=== PATIENT | female | born 1955 | race Caucasian/White ===

== ENCOUNTER 2019-12-14 08:55 | Outpatient (CLI) | payer MEDICARE, SELFPAY ==
--- NOTE | 2019-12-14 | EST_ITS ---
Patient Info Name: Christelle Flower Age: 64 years : 1955 Gender: Female Ht: 65 in Wt: 150 lbs BSA: 1.78 m2 HR: 62 bpm BP: 130 / 84 mmHg Exam Date: 12/14/2019 9:48 AM Exam Location: [facility] Pulmonary Patient Status: Outpatient Admit Date: 12/14/2019 Staff Ordering Physician: TemoDipak MD Injection Molding Supervisor: CHAVA Attending Provider: Temo, Dipak PETTIT Exercise Technologist: Claudia Molina RDCS Exercise Physician: Kwame Fairchild DO Exam Type: CA stress echo Study Info Indications R07.9 - Chest pain, unspecified Treadmill exercise stress echocardiogram is performed. Summary 1. 1. Negative Lam exercise stress test for ischemic ST changes by ECG criteria. 2. 2. Good functional capacity, achieving 7 METs of workload. 3. 3. Appropriate HR response to exercise. 4. 4. Appropriate HR recovery at 1 minute post exercise. 5. 5. Negative stress echocardiogram for ischemia by wall motion analysis. 6. 6. Patient informed of the above results. Stress Echo Findings Left Ventricle Appropriate increase in LV endocardial thickening with systole. Appropriate augmentation of contractility with systole. No wall motion abnormality. Left Ventricle Normal LV systolic function, no wall motion abnormality. Protocol: Lam Stress ECG Details Stage: REST Duration (min): 4 min : 6 sec Speed (mph): 0.0 Grade (%): 0 HR (bpm): 63 SBP (mmHg): 130 DBP (mmHg): 84 METS: --- Stage: REST Duration (min): 11 min : 6 sec Speed (mph): 0.0 Grade (%): 0 HR (bpm): 65 SBP (mmHg): 130 DBP (mmHg): 84 METS: --- Stage: STAGE 1 Duration (min): 1 min : 0 sec Speed (mph): 1.7 Grade (%): 10 HR (bpm): 93 SBP (mmHg): 130 DBP (mmHg): 84 METS: --- Stage: STAGE 1 Duration (min): 2 min : 0 sec Speed (mph): 1.7 Grade (%): 10 HR (bpm): 106 SBP (mmHg): 130 DBP (mmHg): 84 METS: --- Stage: STAGE 1 Duration (min): 3 min : 0 sec Speed (mph): 1.7 Grade (%): 10 HR (bpm): 115 SBP (mmHg): 164 DBP (mmHg): 76 METS: --- Stage: STAGE 2 Duration (min): 1 min : 0 sec Speed (mph): 2.5 Grade (%): 12 HR (bpm): 127 SBP (mmHg): 164 DBP (mmHg): 76 METS: --- Stage: STAGE 2 Duration (min): 2 min : 0 sec Speed (mph): 2.5 Grade (%): 12 HR (bpm): 132 SBP (mmHg): 166 DBP (mmHg): 79 METS: --- Stage: STAGE 2 Duration (min): 3 min : 0 sec Speed (mph): 2.5 Grade (%): 12 HR (bpm): 134 SBP (mmHg): 166 DBP (mmHg): 79 METS: --- Stage: STAGE 3 Duration (min): 0 min : 1 sec Speed (mph): 0.0 Grade (%): 0 HR (bpm): 134 SBP (mmHg): 166 DBP (mmHg): 79 METS: --- Stage: RECOVERY Duration (min): 0 min : 58 sec Speed (mph): 0.0 Grade (%): 0 HR (bpm): 102 SBP (mmHg): 181 DBP (mmHg): 53 METS: --- Stage: RECOVERY Duration (min): 1 min : 58 sec Speed (mph): 0.0 Grade (%): 0 HR (bpm
== END 2019-12-14 08:56 | disposition home or self-care (01) ==
PROVIDERS: PCP Internal Medicine; Visit Provider Internal Medicine
DX: R07.9 Chest pain, unspecified (principal)
CPT/HCPCS: 93351

== ENCOUNTER 2021-02-20 06:54 | Observation (INO) | payer MEDICARE, SELFPAY ==
[2021-02-20] VITALS (14 sets, daily range): BP systolic 103–138; BP diastolic 50–81; PULSE 44–83; RESP 8–18; TEMP 36–36.7; O2SAT 93–99; BMI 24.9
--- NOTE | ~2021-02-20 | CT_ITS ---
EXAMINATION: CT brain wo con DATE: 02/20/2021 11:19 INDICATION: Vertigo. Nausea. TECHNIQUE: Computed tomography (CT) of the head was performed without intravenous contrast. Sagittal and coronal reconstructions were performed. The mA was adjusted according to patient size. Iterative reconstruction technique was employed. The dose-length product was 605.33 mGy-cm. COMPARISON: None FINDINGS: No acute intracranial hemorrhage, acute infarction or abnormal extra axial fluid collection. There is mild scattered white matter hypoattenuation consistent with chronic small vessel ischemic disease. V entricles are normal and symmetric. No mass/mass effect. The orbits, paranasal sinuses and mastoid ai r cells are normal. IMPRESSION: 1. Mild scattered white matter hypoattenuation consistent with chronic small vessel ischemic disease. No acute intracranial process. Reviewed, dictated and finalized at location A. IMPRESSION: 1. Mild scattered white matter hypoattenuation consistent with chronic small ve ssel ischemic disease. No acute intracranial process.
--- NOTE | ~2021-02-20 | US_ITS ---
EXAMINATION: US carotid duplex BI DATE: 02/21/2021 08:39 INDICATION: Dizziness. TECHNIQUE: Grayscale, color Doppler, and pulsed Doppler images of the cervical carotid arteries were obtained. The degree of vessel stenosis is placed in one of the following categories: normal, <50%, 5 0-69%, >=70% but less than near-occlusion, near-occlusion, or total occlusion. Note that percent sten osis relative to normal distal artery lumen diameter is indirectly measured from velocity measurement s as described by Bg, et al. Radiology 2003; 229:340-346. COMPARISON: None. FINDINGS: RIGHT: The right common carotid artery (CCA) peak systolic velocity (PSV) is 79 cm/s. The right internal car otid artery (ICA) PSV is 69 cm/s. The right ICA end-diastolic velocity (EDV) is 24 cm/s. The right IC A/CCA PSV ratio is 0.9. Grayscale and color Doppler images yield an estimate of <50% diameter reducti on from plaque in the ICA. There is antegrade flow in the right vertebral artery. LEFT: The left CCA PSV is 107 cm/s. The left ICA PSV is 69 cm/s. The left ICA EDV is 26 cm/s. The left ICA/ CCA PSV ratio is 0.6. Grayscale and color Doppler images yield an estimate of <50% diameter reduction from plaque in the ICA. There is antegrade flow in the left vertebral artery. IMPRESSION: 1. <50% stenosis in the right internal carotid artery. 2. <50% stenosis in the left internal carotid artery. Reviewed, dictated and finalized at location A.
--- NOTE | 2021-02-20 07:05 | ED.DIZZY ---
HPI - Dizziness General Chief Complaint: Dizziness Stated Complaint: Dizzy, Nausea & Diarrhea Time Seen by Provider: 02/20/21 07:05 History of Present Illness HPI Narrative: 65 yo female w/ h/o htn, essential tremor, irregular heart beat presents to the ED for dizziness. She has had dizziness described as vertigo since this morning. It is worse with head movement and eye opening. Not improved by recumbent position. Associated with nausea. No ear pain or changes in hearing. Chronic tinnitus. No CP, SOB. Additionally complaining of diarrhea since this morning. Watery. No dark or bloody stools. No abdominal pain. No dysuria, hematuria. She was recently told that she has an irregular heart beat and currently has traffic monitor specialist placed. She received second Mederna vaccination at the end of December. Related Data Home Medications Medication Instructions Recorded Confirmed amlodipine 5 mg PO DAILY 02/20/21 atorvastatin 40 mg PO DAILY 02/20/21 calcium-vitamin D3 02/20/21 estradiol 1 mg PO DAILY 02/20/21 avvahuptephr-wmh-esjb-FA-vit K tablet PO 02/20/21 [Adults Multivitamin] omeprazole 20 mg PO DAILY 02/20/21 propranolol 20 mg PO Q12H 02/20/21 zolpidem 02/20/21 Allergies Allergy/AdvReac Type Severity Reaction Status Date / Time simvastatin AdvReac Itching Verified 02/20/21 07:35 Review of Systems Review of Systems: All systems reviewed & are unremarkable except as noted in HPI and below Constitutional: Constitutional: Denies chills, Denies fever(s) and Denies weakness Eyes: Eyes: Reports no additional eye complaints ENT: Reports as per HPI Cardiovascular: Cardiovascular: Denies chest pain Respiratory: Respiratory: Denies dyspnea Gastrointestinal: Gastrointestinal: Denies abdominal pain, Reports diarrhea, Reports nausea and Denies vomiting Genitourinary: Genitourinary: Denies hematuria and Denies dysuria Musculoskeletal: Musculoskeletal: Denies back pain Neurologic: Reports as per HPI, Denies confusion, Denies headache(s) and Denies weakness [facility] Past Medical History Medical History (Updated 02/20/21 @ 12:48 by Bg Stevens MD) Essential tremor HTN (hypertension) Family History Family History (Updated 05/28/16 @ 23:19 by DOCTOR UNKNOWN) Father Family history of alcoholism Family history of chronic obstructive pulmonary disease Family history of heart disease in male family member before age 55 Sibling Family history of malignant neoplasm of breast in first degree relative Family history of lung disease Mother Family history of congestive heart failure Family history of heart disease in male family member before age 55 Other Family history of malignant neoplasm Hypertension Social History Social History Smoking status: Never smoker Alcohol intake: current Gender identity (if verbalized by the patient): Female Exam Const: General: no acute distress and alert Orientation/consciousness: patient oriented x3 HENMT: Head: normal to inspection Ears: Abnormal EAC present cerumen impaction bilateral Mouth: Yes moist mucous membranes Eyes: Conjunctivae: conjunctivae normal Pupils: Equal, round and reactive pupils present Resp: Effort & Inspection: normal respiratory effort Auscultation: clear to auscultation bilaterally Cardio: Rate: regular rate and bradycardic GI: Inspection: non-distended GI Palp: Yes Soft to palpation and No Tenderness to palpation present (GI) Skin: General skin exam: normal color Neuro: General: patient oriented x3, moves all extremities, no meningeal signs and CN's II-XI intact bilaterally Cranial nerves: Yes Nystagmus present horizontal Speech: normal speech Extrem: General: normal to inspection and no edema Course Vital Signs Vital signs: Vital Signs Temperature 36.4 C 02/20/21 07:01 Pulse Rate 44 L 02/20/21 07:01 Respiratory Rate 12 02/20/21 07:01 Blood Pressure 115/76 02/20/21 07:01 Pulse Oximetry 96
--- NOTE | 2021-02-20 07:20 | ECG_ITS ---
Measurements Intervals [place] Rate: 52 P: 85 NV: 193 QRS: 207 QRSD: 97 T: 192 QT: 455 QTc: 426 Interpretive Statements SINUS BRADYCARDIA LIMB LEAD REVERSAL DELAYED PRECORDIAL R/S TRANSITION BORDERLINE T WAVE ABNORMALITY- ANTEROLAT/INF LEADS BASELINE ARTIFACT- I, II, III, AVR, AVL, AVF BORDERLINE ECG Electronically Signed On 02-20-2021 9:08:28 CDT by Kwame Fairchild D.O.
[2021-02-20] MEDS: SODIUM CHLORIDE 0.9% IV 1,000 ML 999 ML IV CONT (07:44)
[2021-02-20] MEDS: ONDANSETRON INJ 4 MG/2 ML VIAL IV PUSH (07:44)
[2021-02-20] MEDS: diazePAM INJ (*CRX) 10 MG/2 ML SYRINGE 2.5 MG IV PUSH (07:45)
[2021-02-20 07:46] LABS: Basophils Percent Auto 0.6 % (0.2-1.2); Eosinophils Absolute Auto 0.2 K/mm3 (0-0.3); Eosinophils Percent Auto 2.8 % (0-4.4); Hematocrit 39.7 % (37.0-47.0); Hemoglobin 13.3 g/dL (12.0-15.0); Immature Granulocyte Absolute 0.01 K/mm3 (0.00-0.031); Immature Granulocyte Percent A 0.1 % (0-0.5); Lymphocytes Absolute Auto 1.09 K/mm3 (0.9-3.2); Lymphocytes Percent Auto 15.1 % (18.3-44.2); Mean Corpuscular HGB Conc 33.5 g/dl (32-36); Mean Corpuscular Hemoglobin 31.2 pg (26-34); Mean Corpuscular Volume 93.2 fl (80-100); Mean Platelet Volume 10.4 fl (7.4-10.4); Monocytes Absolute Auto 0.5 K/mm3 (0.1-0.6); Monocytes Percent Auto 6.9 % (2.6-8.5); Neutrophils Absolute Auto 5.4 K/mm3 (1.3-6.7); Neutrophils Percent Auto 74.5 % (45.5-73.1); Platelet Count Result 197 k/mm3 (150-375); Red Blood Count 4.26 M/mm3 (4.2-5.4); Red Cell Distribution Width 12.4 % (11.5-14.5); White Blood Count 7.2 K/mm3 (4.5-10.0)
[2021-02-20 07:57] LABS: Alanine Aminotransferase 21 U/L (4-35); Albumin Level 4.2 g/dL (3.5-5.1); Alkaline Phosphatase 63 U/L (38-126); Anion Gap 6 mmol/L (8-16); Aspartate Amino Transferase 30 U/L (14-36); Bilirubin,Total 0.3 mg/dL (0.2-1.3); Blood Urea Nitrogen 13 mg/dL (7-17); Calcium 8.8 mg/dL (8.4-10.2); Carbon Dioxide 26 mmol/L (22-30); Chloride 108 mmol/L (98-107); Estimated CRCL calculation 70 ml/min; Estimated Glomerular Filt Rate > 60; Glucose 136 mg/dL (65-105); INR 0.9; Magnesium 1.9 mg/dL (1.6-2.3); Partial Thromboplastin Time 22.1 SECONDS (22.3-36.8); Potassium 3.6 mmol/L (3.4-5.0); Prothrombin Time 12.3 Seconds (11.1-14.7); Sodium 140 mmol/L (137-145)
[2021-02-20 08:11] LABS: Troponin I < 0.012 ng/mL (0.000-0.034)
[2021-02-20] MEDS: MECLIZINE HCL 25 MG TABLET PO ×2 (10:07→17:34)
[2021-02-20] MEDS: diazePAM INJ (*CRX) 10 MG/2 ML SYRINGE 5 MG IV PUSH (11:25)
--- NOTE | 2021-02-20 13:44 | ADMGEN ---
This patient, Christelle Flower, was admitted to Medical Room 252-01. Patient/family oriented to hospital policies and general routines including ID bracelet, bed and alarms, visiting hours, pain management, procedures, bathroom and other care routines, personal items, smoking policy, room service/diet, and visiting hours. Information on how to activate the Rapid Response Team has been discussed. Patient/Family are encouraged to report perceived risks to care and to ask questions if they do not understand what they are told or what they should do.
[2021-02-20] MEDS: LACTATED RINGERS 1,000 ML 100 ML IV CONT (13:57)
--- NOTE | 2021-02-20 16:45 | PM.IMHP ---
H&P: HPI History of Present Illness Date/Time: 02/20/21 16:45 65 yo female w/ h/o htn, essential tremor, irregular heart beat presents to the ED for dizziness. It started when she woke up this am. she reports feeling of room spinning around with this. worsens wiht head movement and eye opening. and also sitting up. it was not able to check orthostatic in the ed. reiecved some fluid. no ear ache, ear pain ,no tinnitus. she had clogged ears in the apst. she also rpeorts she had an episode of watery diarrhea this am. she denies any abdomnal pain. she is also peeing too much. no fever, chills. sob, chest pain. She was recently told that she has an irregular heart beat and currently has trackmobile operator placed. She received second Mederna vaccination at the end of December. Chief Complaint: dizziness Review of Systems Review of Systems: Narrative: - CONSTITUTIONAL: Denies weight loss, fever and chills. - HEENT: Denies changes in vision and hearing - RESPIRATORY: Denies SOB and cough. - CV: Denies palpitations and CP. - GI: Denies abdominal pain, nausea, vomiting and reprots diarrhea. - : Denies dysuria and reprots urinary frequency. - MSK: Denies myalgia and joint pain. - SKIN: Denies rash and pruritus. - NEUROLOGICAL: Denies headache and syncope. - PSYCHIATRIC: Denies recent changes in mood. Denies anxiety and depression. All systems reviewed & are unremarkable except as noted in HPI and below Constitutional: Constitutional: Reports fatigue and Reports weakness Neurologic: Reports weakness Endocrine: Endocrine: Reports fatigue [facility] Past Medical History Medical History (Updated 02/20/21 @ 17:04 by Real Christiansen MD) Essential tremor HTN (hypertension) Family History Family History Father Family history of alcoholism Family history of chronic obstructive pulmonary disease Family history of heart disease in male family member before age 55 Sibling Family history of malignant neoplasm of breast in first degree relative Family history of lung disease Mother Family history of congestive heart failure Family history of heart disease in male family member before age 55 Other Family history of malignant neoplasm Hypertension Social History Social History Smoking status: Never smoker Alcohol intake: current Drinks per week: 2 Substance use: never Substance use type: does not use Gender identity (if verbalized by the patient): Female Spiritual care concerns: No Meds Home Medications and Allergies Home Medications Medication Instructions Recorded Confirmed Type amlodipine 5 mg PO DAILY 02/20/21 02/20/21 History atorvastatin 40 mg PO DAILY 02/20/21 02/20/21 History calcium carbonate-vitamin D2 1 tablet PO BID 02/20/21 02/20/21 History [Calcium + Vitamin D] ergocalciferol (vitamin D2) 1,250 mcg PO WEEKLY 02/20/21 02/20/21 History estradiol 1 mg PO DAILY 02/20/21 02/20/21 History efzsgzxqmhdj-qvn-hhyw-FA-vit K tablet PO 02/20/21 History [Adults Multivitamin] omeprazole 20 mg PO DAILY 02/20/21 02/20/21 History propranolol 40 mg PO HS 02/20/21 02/20/21 History zolpidem 10 mg PO HS 02/20/21 02/20/21 History zonisamide 50 mg PO HS 02/20/21 02/20/21 History Allergies Allergy/AdvReac Type Severity Reaction Status Date / Time simvastatin AdvReac Itching Verified 02/20/21 13:48 Vital Signs Vital Signs - 24 hr 02/20/21 07:01 02/20/21 07:14 02/20/21 07:24 Temperature 97.6 F 97.6 F Pulse Rate 44 L 50 L Respiratory Rate 12 14 Blood Pressure 115/76 121/62 Pulse Oximetry 96 94 02/20/21 07:40 02/20/21 07:41 02/20/21 08:49 Temperature Pulse Rate 55 L 64 64 Respiratory Rate 14 Blood Pressure 134/61 134/81 117/64 Pulse Oximetry 97 02/20/21 10:29 02/20/21 11:26 02/20/21 12:38 Temperature Pulse Rate 55 L 54 L 63 Respiratory Rate 18 8 L 18 Blood Pressure 138/78 124/63 103/70 Pulse Oxime
[2021-02-20] MEDS: PROPRANOLOL HCL 20 MG TABLET 40 MG PO (20:34)
[2021-02-20] MEDS: ZONISAMIDE 25 MG CAPSULE 50 MG PO (20:34)
[2021-02-20] MEDS: ZOLPIDEM TARTRATE (*CRX) 5 MG TABLET 10 MG PO (20:35)
[2021-02-21] VITALS (11 sets, daily range): BP systolic 107–119; BP diastolic 58–72; PULSE 57–72; RESP 16; TEMP 36.3–37.2; O2SAT 95–97
--- NOTE | 2021-02-21 | ECHO_ITS ---
Patient Info Name: Christelle Flower Age: 65 years : 1955 Gender: Female Ht: 65 in Wt: 149 lbs BSA: 1.77 m2 HR: 60 bpm BP: 113 / 62 mmHg Heart Rhythm: Sinus Rhythm Technical Quality: Good Exam Date: 02/21/2021 7:32 AM Exam Location: [facility] Pul[facility] Patient Status: Inpatient Admit Date: 02/20/2021 Staff Ordering Physician: Real Christiansen MD Oracle Adf Developer: Christina Chowdary RDCS Attending Provider: Real Christiansen MD Exam Type: CA echo doppler color flow Study Info Indications R42 - Dizziness and giddiness Complete two-dimensional, color flow and Doppler transthoracic echocardiogram is performed. Strain analysis performed. Summary 1. Complete two-dimensional, color flow and Doppler transthoracic echocardiogram is performed. 2. Strain analysis performed. 3. Left ventricular chamber dimension is normal. 4. Left ventricular systolic function is hyperdynamic, estimated at >70%. 5. There is mildly increased left ventricular wall thickness. 6. Left ventricular septal wall motion is normal. 7. The left ventricular diastolic function is indeterminate. 8. Global longitudinal strain is normal at -22 %. 9. Left atrial chamber dimension is mildly enlarged. 10. There is mild mitral valve regurgitation. 11. There is mild tricuspid valve regurgitation. Left Ventricle Left ventricular chamber dimension is normal. Left ventricular systolic function is hyperdynamic, estimated at >70%. There is mildly increased left ventricular wall thickness. Left ventricular septal wall motion is normal. The left ventricular diastolic function is indeterminate. Global longitudinal strain is normal at -22 %. Right Ventricle Right ventricular chamber dimension is normal. Right ventricular systolic function is normal. Left Atria Left atrial chamber dimension is mildly enlarged. Right Atria Right atrial chamber dimension is normal. Atrial Septum Intact interatrial septum visualized by color flow imaging. Aortic Valve The aortic valve is trileaflet. There is no aortic valve sclerosis. There is no aortic valve stenosis. There is trace aortic valve regurgitation. Pulmonic Valve The pulmonic valve is normal. There is no pulmonic valve stenosis. There is trace pulmonic regurgitation. Mitral Valve The mitral valve has normal leaflets. There is no mitral valve stenosis. There is mild mitral valve regurgitation. Tricuspid Valve The tricuspid valve leaflets are normal. There is no significant tricuspid valve stenosis. There is mild tricuspid valve regurgitation. No pulmonary hypertension, estimated pulmonary arterial systolic pressure is 33 mmHg. Pericardium/Pleural The pericardium appears normal. There is trivial pericardial effusion. Inferior Vena Cava Normal inferior vena cava with >50% collapse upon inspiration consistent with normal right atrial pressure, 10 mmHg. Aorta The aortic root size at the sinus of Valsalva is normal. The prox ascending aorta size is normal. Left Ventricular Outflow Tract Name Value Normal LVOT 2D LVOT Diameter 2.0 cm LVOT Doppler LVOT Peak Gr
[2021-02-21] MEDS: LACTATED RINGERS 1,000 ML 100 ML IV CONT (00:07)
[2021-02-21] MEDS: MECLIZINE HCL 25 MG TABLET PO ×4 (00:08→17:18)
[2021-02-21] MEDS: ACETAMINOPHEN 325 MG TABLET 650 MG PO ×2 (05:54→13:59)
[2021-02-21] MEDS: ATORVASTATIN 40 MG TABLET PO (09:15)
[2021-02-21] MEDS: PANTOPRAZOLE 40 MG TABLET PO (09:15)
[2021-02-21] MEDS: estradioL 1 MG TABLET PO (09:15)
[2021-02-21] MEDS: MULTIVITAMINS /C LUTEIN (CENTRUM SILVER) TABLET *BKC 1 TAB PO (09:15)
--- NOTE | 2021-02-21 13:29 | PM.IMPN ---
Progress Note: A&P Assessment and Plan (1) Vertigo: Code(s): R42 - Dizziness and giddiness Status: Acute (2) Hyperlipidemia: Code(s): E78.5 - Hyperlipidemia, unspecified Status: Acute (3) GERD (gastroesophageal reflux disease): Code(s): K21.9 - Gastro-esophageal reflux disease without esophagitis Status: Acute (4) Insomnia: Code(s): G47.00 - Insomnia, unspecified Status: Acute (5) Irregular heart beat: Code(s): I49.9 - Cardiac arrhythmia, unspecified Status: Acute Additional Plan # Acute vertigo: likely BPPV vs labrynthitis. conservative managmeent. Compazine. received valium which helped in the ED. scheduled meclizine scheduled. OT to perform Joy maneuvre did not happen. symptoms better today. will stop her ivf. complete orthostatic could nto be checked but sitting up with no drop in blood pressure. carotid us negative bilaterlay. ECHO is okay as well. # Diarrhea: watch for further occurence. likely viral. this has resolved now. # hx of irregular heart beat: will get ECHO. she is on event monitor. results could not be obtained today as ofice is already closed. will monitor in telemetry here. on inderal which will be continued. # HTN: adriano emedications and stable. contieu inderal # Hyperlpidemia: atorvastatin # DVT proph: SCDs # full code # Disposition: Fluid off. plan dc in am. Subjective Date/time seen: 02/21/21 13:29 feels a lot better today, she is very minimally dizzy today, she worked with OT this am. she is eating and drinking well. no nausea today. no fever, chills. Review of Systems Review of Systems: Narrative: - CONSTITUTIONAL: Denies weight loss, fever and chills. - HEENT: Denies changes in vision and hearing - RESPIRATORY: Denies SOB and cough. - CV: Denies palpitations and CP. - GI: Denies abdominal pain, nausea, vomiting and diarrhea. - : Denies dysuria and urinary frequency. - MSK: Denies myalgia and joint pain. - SKIN: Denies rash and pruritus. - NEUROLOGICAL: Denies headache and syncope. - PSYCHIATRIC: Denies recent changes in mood. Denies anxiety and depression. All systems reviewed & are unremarkable except as noted in HPI and below Constitutional: Constitutional: Reports fatigue and Reports weakness Neurologic: Reports weakness Endocrine: Endocrine: Reports fatigue Exam Narrative: Exam Narrative: GENERAL: The patient is well developed, in no acute distress HEENT: Nonicteric sclerae, PERRLA, EOMI. Oropharynx clear. Moist mucous membranes. Conjunctivae appear well perfused. no nystagmus noted. neck movements will exacerbate her vertigo CHEST: Chest wall is nontender. HEART: Regular rate and rhythm without murmur, rubs, or gallops LUNGS: Clear to auscultation bilaterally. no respiratory distress ABDOMEN: Soft, positive bowel sounds, non-tender, no organomegaly. SKIN: No rash, no excessive bruising, petechiae, or purpura. NEUROLOGIC: Cranial nerves II-XII intact, alert and oriented x 3, no gross motor deficits EXTREMITIES: no edema, cyanosis or clubbing Objective Data Vital Signs Vital Signs: Vital Signs - 24 hr 02/20/21 13:40 02/20/21 16:00 02/20/21 20:00 Temperature 96.8 F L Pulse Rate 60 63 83 Respiratory Rate 16 16 Blood Pressure 116/50 L Pulse Oximetry 99 97 02/20/21 20:34 02/20/21 21:25 02/21/21 00:00 Temperature 98.0 F Pulse Rate 80 83 72 Respiratory Rate 16 Blood Pressure 111/56 L Pulse Oximetry 97 02/21/21 04:00 02/21/21 06:00 02/21/21 08:13 Temperature 97.9 F Pulse Rate 66 65 Respiratory Rate 16 Blood Pressure 113/62 Pulse Oximetry 97 97 02/21/21 09:11 02/21/21 12:00 Temperature Pulse Rate 63 57 L Respiratory Rate Blood Pressure Pulse Oximetry Intake/Output Intake/Output: Intake & Output 02/18/21 02/19/21 02/20/21 02/21/21 23:59 23:59 23:59 23:59 Intake Total 1999 1850 Output Total 200 850 Balance 1800 1000 Meds/Results Me
[2021-02-21] MEDS: ZONISAMIDE 25 MG CAPSULE 50 MG PO (20:27)
[2021-02-21] MEDS: PROPRANOLOL HCL 20 MG TABLET 40 MG PO (20:27)
[2021-02-21] MEDS: KETOROLAC 15 MG/ML VIAL (*BKC) IV PUSH (20:28)
[2021-02-21] MEDS: ZOLPIDEM TARTRATE (*CRX) 5 MG TABLET 10 MG PO (22:05)
[2021-02-22] VITALS: PULSE 58
[2021-02-22] MEDS: MECLIZINE HCL 25 MG TABLET PO ×2 (00:20→06:09)
[2021-02-22 04:00] VITALS: PULSE 59
[2021-02-22 06:00] VITALS: BP 119/70; PULSE 56; RESP 18; TEMP 36.4; O2SAT 96
[2021-02-22 08:00] VITALS: PULSE 63
[2021-02-22] MEDS: MULTIVITAMINS /C LUTEIN (CENTRUM SILVER) TABLET *BKC 1 TAB PO (08:37)
[2021-02-22] MEDS: PANTOPRAZOLE 40 MG TABLET PO (08:37)
[2021-02-22] MEDS: ATORVASTATIN 40 MG TABLET PO (08:37)
[2021-02-22] MEDS: estradioL 1 MG TABLET PO (08:37)
[2021-02-22] MEDS: KETOROLAC 15 MG/ML VIAL (*BKC) IV PUSH (09:49)
--- NOTE | 2021-02-22 10:26 | PM.DS ---
DS: Admitting Diagnosis Admitting Diagnosis Admitting Diagnosis: acute vertigo DS: Discharge Diagnosis Discharge Diagnosis (1) Irregular heart beat: Code(s): I49.9 - Cardiac arrhythmia, unspecified Status: Acute (2) Insomnia: Code(s): G47.00 - Insomnia, unspecified Status: Acute (3) GERD (gastroesophageal reflux disease): Code(s): K21.9 - Gastro-esophageal reflux disease without esophagitis Status: Acute (4) Hyperlipidemia: Code(s): E78.5 - Hyperlipidemia, unspecified Status: Acute (5) Vertigo: Code(s): R42 - Dizziness and giddiness Status: Acute DS: Summary Hospital Course Hospital Course: # Acute vertigo: likely BPPV vs labrynthitis. conservative managmeent. Compazine which she did not received.. received valium which helped in the ED. scheduled meclizine scheduled. OT to perform Joy maneuvre did not happen. symptoms improved with conservative treatment. will refer to outpatient vestibular therapy for continued treatment. stopped her ivf. complete orthostatic could nto be checked but sitting up with no drop in blood pressure. carotid us negative bilaterlay. ECHO is okay as well. bp was low normal and held amlodipine. will keep this on hold at [facility]. fu with PCP for bp check if need to be restrarted. # Diarrhea: watch for further occurence. likely viral. this has resolved now. # hx of irregular heart beat: will get ECHO. she is on event monitor. results could not be obtained today as ofice is already closed. will monitor in telemetry here. on inderal which will be continued. event monitor report reviewed, sinus arrhthymia with occasional sinus pause present. no afib or aflutter or any other arrythmia noted. no event during the start of the episode of vertigo. she is planned for follow up with cardiology as op basis which i have suggested her to keep. # HTN: adriano emedications and stable. contieu inderal # Hyperlpidemia: atorvastatin # DVT proph: SCDs # full code # Disposition: home self care with outpatient vestibular therapy. Status at Discharge Functional status at discharge: independent ambulation Overall status at discharge: patient is progressing back to baseline Time Spent with Patient Time attestation: Total time spent providing and/or coordinating discharge services:35 mins Exam Narrative: Exam Narrative: GENERAL: The patient is well developed, in no acute distress HEENT: Nonicteric sclerae, PERRLA, EOMI. Oropharynx clear. Moist mucous membranes. Conjunctivae appear well perfused. no nystagmus noted. neck movements will exacerbate her vertigo CHEST: Chest wall is nontender. HEART: Regular rate and rhythm without murmur, rubs, or gallops LUNGS: Clear to auscultation bilaterally. no respiratory distress ABDOMEN: Soft, positive bowel sounds, non-tender, no organomegaly. SKIN: No rash, no excessive bruising, petechiae, or purpura. NEUROLOGIC: Cranial nerves II-XII intact, alert and oriented x 3, no gross motor deficits EXTREMITIES: no edema, cyanosis or clubbing Discharge Plan Discharge Attending physician on discharge: Real Christiansen Discharging Clinician: Real Christiansen Anticipated Discharge Date/Time: 02/22/21 10:21 Patient Disposition: Home, Self-Care Activity: as tolerated Diet: as tolerated and heart healthy Discharge Instructions: Follow up with PCP in 1 week for blood pressure check. FOllow up with your wire charger as scheduled. Patient Instructions: Antibiotic Form Stand Alone Forms: General Discharge Information Follow-up/Referrals: Temo,MD Dipak [Primary Care Provider] - 1 Week Discharge Medications: New meclizine 25 mg Tablet 25 mg PO Q6HR PRN (Reason: Vertigo) Qty: 30 RF: 0 Continued omeprazole 20 mg Capsule,Delayed Release(Dr/Ec) 20 mg PO DAILY RF: 0 propranolol 20 mg Tablet 40 mg PO HS RF: 0 atorvastatin 40 mg Tablet 40 mg PO DAILY RF: 0 estradiol 1 mg Tablet
== END 2021-02-22 11:48 | disposition home or self-care (01) ==
LOC: ANHED 08:25 → ANH2MED 12:16
PROVIDERS: Admitting Provider Internal Medicine; Emergency Provider Emergency Medicine; PCP Internal Medicine; Visit Provider Internal Medicine
DX: I49.9 Cardiac arrhythmia, unspecified (principal); R42 Dizziness and giddiness; E78.5 Hyperlipidemia, unspecified; G47.00 Insomnia, unspecified; I10 Essential (primary) hypertension; K21.9 Gastro-esophageal reflux disease without esophagitis
CPT/HCPCS: 36415; 70450; 80053; 83735; 84484; 85025; 85610; 85730; 93005; 93306; 93880; 96361; 96374; 96375; 96376; 97165; 99285; A9270; G0378; J1885; J2405; J3360; J7030; J7120

== ENCOUNTER 2021-03-18 07:46 | Outpatient (CLI) | payer MEDICARE, SELFPAY | END 2021-03-18 07:47 | disposition home or self-care (01) | LOC: ANHAUDIO 07:47 | PROVIDERS: PCP Internal Medicine; Visit Provider Nurse Practitioner Family | DX: H90.42 Sensorineural hearing loss, unilateral, left ear, with unrestricted hearing on the contralateral side (principal) | CPT/HCPCS: 92537; 92540; 92546; 92557; 92567 ==

== ENCOUNTER 2021-05-15 10:15 | Outpatient (RCR) | payer MEDICARE, SELFPAY ==
--- NOTE | 2021-04-24 17:12 | PTOPEVAL ---
PHYSICAL THERAPY EVALUATION Thank you for referring Christelle Flower to [facility] [place] Christelle was evaluated for the dx of dizziness/vertigo. The patient is scheduled to be seen for therapy? 2 x/week for 4 weeks. Please review, sign, date and return this plan of care NOHEMI. I agree with and certify that the following plan of care is medically necessary. Referring Physician Date Referring Provider: Kel Canas LEATHER BELT SHAPER *PT Outpatient Evaluation Start: 04/24/21 10:39 Freq: Status: Active Protocol: Document 04/24/21 10:39 [facility] (Rec: 04/24/21 11:40 [facility] [id number]) Therapy Assessment Status Assessment Status Assessment Status Evaluation Evaluation Information Problem Diagnosis vertigo Onset 01/2019 Additional Evaluation Detail The first time, the patient had a sudden bout of dizziness with nausea/vomitting. The patient was in bed 4 days due to severity of dizziness. Patient felt a little off balance after recovering. This January this year, the patient had another bout of severe dizziness and received a hearing test, ENG and vestibular. Patient also saw ENT with MRI done- test was negative. The patient is no longer dizzy and no longer requires meds to prevent symptoms. Pain Assessment Timing of Pain Assessment Timing of Pain Assessment Assessment Self Report Self Report Pain Level 0 Pain Score Pain Score 0: Self Report Upper Extremity Range of Motion General Upper Extremity Range of Motion Reason Not Measured WFL/Left,WFL/Right Lower Extremity Range of Motion General Lower Extremity Range of Motion Reason Not Measured WFL/Left,WFL/Right Lower Extremity Muscle Strength Testing General Lower Extremity Strength Reason Not Measured WFL/Left,WFL/Right Upper Extremity Muscle Strength Testing General Upper Extremity Strength Reason Not Measured WFL/Left,WFL/Right Balance Assessment GARCIAS Balance Evaluation Total Score (/56 48 points) Comments single leg stance on left is less than 3 seconds, on the right is 10 seconds with 1 touch to correct. Functional Gait Assessment Requirements: A Marked 6 m (20 ft) Walkway That is Marked With a 30.48 cm (12 in) Width. Grading: Amandeep the Highest Category That Applies Gait Level Surface
--- NOTE | 2021-05-08 11:47 | PCPTNOTE ---
Patient did not show up for scheduled appointment this date. Called patient, left message including next scheduled appt date/time.
--- NOTE | 2021-05-22 07:54 | PCPTNOTE ---
Patient called & cancelled scheduled appointment this date due to pulling a muscle in her thigh. Cancelled all remaining appts and states she will call to reschedule later.
--- NOTE | 2021-06-17 11:51 | PCPTNOTE ---
PHYSICAL THERAPY DISCHARGE Attending Provider: Kel Canas NP Patient:Christelle Flower Date of :1955 Patient has not returned for any further treatments since 05/15/2021, therefore she will be discharged at this time. Patient?s initial visit was on 04/24/2021 10:30 and she had a total of 5 visits. The goals have been partially met. Thank you for referring this patient to [facility]. Please review, sign, date and return this discharge summary NOHEMI. I have been updated about the patient's current status and I agree with discharge from the above service at this time. Referring Physician Date
== END 2021-06-18 16:41 | disposition home or self-care (01) ==
LOC: ANHPT 10:15
PROVIDERS: PCP Internal Medicine
DX: R42 Dizziness and giddiness (principal)
CPT/HCPCS: 97110; 97116; 97162

== ENCOUNTER 2022-09-10 13:31 | Outpatient (CLI) | payer MEDICARE, SELFPAY ==
[2022-09-10 14:48] LABS: Influenza A QL RT-PCR Negative (Negative); Influenza B QL RT-PCR Negative (Negative); SARS-CoV-2 RNA PCR Positive
== END 2022-09-10 13:32 | disposition home or self-care (01) ==
PROVIDERS: PCP Internal Medicine; Visit Provider Internal Medicine
DX: R05.9 Cough, unspecified (principal); U07.1 COVID-19
CPT/HCPCS: 87502; U0003; U0005

== ENCOUNTER → 2022-12-06 14:10 | Outpatient (CLI) | payer MEDICARE, SELFPAY ==
--- NOTE | ~2022-12-06 | CT_ITS ---
Non-contrast CT scan of the Abdomen and Pelvis Clinical indication: Ureteral stone Technique: 5 mm axial scans were obtained through the abdomen and pelvis without intravenous or oral contrast. Dose reduction technique was used on this scan by utilizing automated exposure control and iterative reconstruction technique. The dose-length product (DLP) was 314.36 mGy-cm. COMPARISON: 08/12/2015 Findings: Images through the lung bases reveal no abnormalities. There is a 3 mm stone at the right UVJ. No gaston hydronephrosis. Punctate nonobstructing left renal s tone present. No left ureteral stone or left hydronephrosis. The liver, spleen, pancreas, gallbladder, and left adrenal gland appear normal. Stable right adrenal adenoma. There is no aortic aneurysm. There is no evidence of bowel obstruction. No evidence for appendicitis. Images through the pelvis were performed. There is no evidence of ascites or lymphadenopathy. Urinary bladder otherwise unremarkable. No pelvic mass. Impression: 3 mm right UVJ stone. No gasotn hydronephrosis. Stable right adrenal adenoma. Reviewed, dictated and finalized at [facility]. K TOSSER Impression: 3 mm right UVJ stone. No gaston hydronephrosis. Stable right adrenal adenoma.
== END ==
PROVIDERS: PCP Internal Medicine; Visit Provider Nurse Practitioner Adult Health
DX: N20.1 Calculus of ureter (principal)
CPT/HCPCS: 74176

== ENCOUNTER 2022-12-07 01:32 | Day surgery (SDC) | payer MEDICARE, SELFPAY ==
--- NOTE | 2022-12-06 15:07 | PC.NURSE ---
Report to the Outpatient Waiting Room, entrance under the green pavilion located off [facility], at time __30 on date ___12/07/22____. Planned Procedure Time: __929 . Time changes happen often and if your time is changed the preop area will call you the afternoon before. - You and your visitor will be asked to self-screen and do not enter if you have any COVID symptoms. - Only one visitor is requested with a max of two and NO children visitors are allowed at this time. - The patient visitor may be requested to leave or wait in car when not with patient due to distancing restrictions. - A mask is optional within the hospital at this time. Patients may have clear liquids (water, carbonated beverages, clear teas, apple juice) until 3 hours prior to surgery with a maximum of 20 ounces. - No food from midnight until time of surgery - Infants may have breast milk until 4 hours before surgery, formula 6 hours prior to surgery. - Children will be allowed to drink immediately following surgery. If applicable, please bring a bottle or sippy cup to assist with drinking. Juice, water, soda, and popsicles are readily available. For infants on formula, please bring formula the day of surgery. Pacifiers are allowed. Take the following medications with a SIP of water the morning of surgery: __NONE DO NOT STOP ANY OF YOUR OTHER PRESCRIPTION MEDICATIONS PRIOR TO SURGERY ?EXCEPT THE FOLLOWING Medications to discontinue per physician _PT STATES ASPIRIN/VITAMINS/SUPPLEMENTS LAST DOSE 12/06/22 DR MCCARTNEY AWARE Please no make-up, nail mongolian, hairspray, perfume, deodorant, or body powder the day of surgery. No jewelry (including any body piercings) or valuables the day of surgery, leave them at home. Please take a shower or bath the night before, or the morning of, surgery with an antibacterial soap. Wear comfortable, loose fitting clothing. Children are encouraged to wear pajamas. - Jewelry must be removed prior to entering the operating room. Rings and piercings that are not removed may be cut off. - The hospital will not accept responsibility for valuables. - Please leave all valuables, including medications, at home the day of surgery. If you are going home after surgery, a licensed delivery motorcycle driver must drive you home. - NO public transportation without another adult if you receive anesthesia. - We recommend that an adult stay with you for 24 hours following discharge. - We also recommend that you do not drive, make important decision, drink alcoholic beverages, or take any drugs that were not prescribed by your health care provider for at least 24 hours after your discharge time. For Pediatric surgeries, we recommend two adults accompany the child home. Follow any additional instructions given to you from your surgeon. If you or anyone in your household have experienced Covid symptoms in the past week, please notify your surgeon or the nurse liaison at the phone number below for possible testing. Telephone instructions given to __PATIENT and asked if any additional questions and then verbalized understanding. Patient advised to call surgeon office or pre surgery nurse liaison [phone] if any additional questions.
[2022-12-06 15:15] VITALS: BMI 25.0
[2022-12-07] VITALS (8 sets, daily range): BP systolic 109–138; BP diastolic 60–85; PULSE 55–68; RESP 12–16; TEMP 36.4–36.6; O2SAT 95–100
--- NOTE | ~2022-12-07 | XR_ITS ---
EXAMINATION: XR retrograde pyelo w/stent RT DATE: 12/07/2022 09:50 INDICATION: Right ureteral stone. TECHNIQUE: 8 intraoperative fluoroscopic views of the abdomen and pelvis were obtained. I was not pre sent. Fluoroscopy exposure time was 18 seconds. COMPARISON: CT abdomen and pelvis 12/06/2022 FINDINGS: The right-sided retrograde pyelogram is unremarkable. There is a right internal ureteral st ent in expected position. IMPRESSION: 1. Right internal ureteral stent in expected position. Reviewed, dictated and finalized at location A. IS NURSE
--- NOTE | 2022-12-07 07:16 | ECG_ITS ---
Measurements Intervals [place] Rate: 64 P: 7 NC: 180 QRS: -20 QRSD: 89 T: -7 QT: 420 QTc: 435 Interpretive Statements SINUS RHYTHM VOLTAGE CRITERIA FOR LVH [MEETS CRITERIA IN ONE OF: R(aVL), S(V1), R(V5), R(V5/V6)+S(V1)] NONSPECIFIC T-WAVE ABNORMALITY COMPARED TO ECG 02/20/2021 07:04:53 SINUS RHYTHM NOW PRESENT Electronically Signed On 12-07-2022 14:50:34 GROWTH HACKER by Dora Orozco M.D.
[2022-12-07] MEDS: LACTATED RINGERS 1,000 ML 30 ML IV CONT (08:20)
--- NOTE | 2022-12-07 08:20 | WPDHPUPDATE1 ---
History and Physical Update Update Date/Time: 12/07/22 08:20 History and Physical has been reviewed, including an updated exam of the patient. There are NO changes in the patient's condition. Risks, benefits, and alternatives have been discussed and questions answered. Patient agrees to proceed with procedure. Proceed with cysto, right retrograde, right ureteroscopy with stone extraction, possible laser, stent placement.
--- NOTE | 2022-12-07 08:27 | WPDANESEPPF ---
Anes - Initial Pre Proc Eval Procedure: Operation Date: 12/07/22 09:30 Proposed Procedures p Cystoscopy, Right Ureteroscopy, Possible Right Retrograde Pyelogram, Possible Right Stone Extraction, Possible Right Stent Placement, Possible Holmium Laser Procedure - Garrick Dunham MD Date/Time: 12/07/22 08:27 Surgeon: Garrick Dunham MD Pre Op Diagnosis: right ureteral stone Patient Data Age: 67 Gender: F Height: 1.65 m Weight: 68.7 kg Last Vital Signs Temp 36.6 C 12/07/22 07:36 Pulse 68 12/07/22 07:36 Resp 16 12/07/22 07:36 BP 138/83 12/07/22 07:36 Pulse Ox 95 12/07/22 07:36 O2 Del Method Room Air 12/07/22 07:36 Allergies Allergy/AdvReac Type Severity Reaction Status Date / Time simvastatin AdvReac Mild Itching Verified 12/07/22 07:50 Home Medications Medication Instructions Recorded Confirmed Type atorvastatin 40 mg tablet 40 mg PO DAILY 02/20/21 12/07/22 History estradiol 1 mg tablet 1 mg PO DAILY 02/20/21 12/07/22 History multivit with minerals-iron 18 1 tablet PO DAILY 02/20/21 12/07/22 History mg-folic ac 400 mcg-vit K 25 mcg tablet (Adults Multivitamin) omeprazole 20 mg capsule,delayed 20 mg PO DAILY 02/20/21 12/07/22 History release propranolol 20 mg tablet 40 mg PO HS TREMORS 02/20/21 12/07/22 History zolpidem 10 mg tablet 10 mg PO HS 02/20/21 12/07/22 History meclizine 25 mg tablet 25 mg PO Q6HR PRN Vertigo #30 tabs 02/22/21 12/06/22 Rx aspirin 81 mg tablet,delayed 81 mg PO DAILY 12/06/22 12/07/22 History release (Adult Low Dose Aspirin) calcium citrate 315 mg-vitamin D3 1 tablet PO BID 12/06/22 12/07/22 History 5 mcg (200 unit) tablet (Calcium Citrate + D) cetirizine 10 mg tablet (Zyrtec) 10 mg PO DAILY 12/06/22 12/07/22 History magnesium citrate 125 mg capsule 833 mg PO DAILY 12/06/22 12/07/22 History polyethylene glycol 3350 17 17 g PO DAILY 12/06/22 12/07/22 History gram/dose oral powder (Miralax) Patient hx anesthesia problems: none Family hx anesthesia problems: none Results Review: All pre-operative results and documents have been reviewed as part of the pre-operative evaluation. [facility] Past Medical History Medical History (Updated 12/07/22 @ 08:27 by Shailesh Murrieta MD) Arthritis Essential tremor HTN (hypertension) Hyperlipidemia Family History Family History Father Family history of alcoholism Family history of chronic obstructive pulmonary disease Family history of heart disease in male family member before age 55 Sibling Family history of malignant neoplasm of breast in first degree relative Family history of lung disease Mother Family history of congestive heart failure Family history of heart disease in male family member before age 55 Other Family history of malignant neoplasm Hypertension Social History Social History Smoking status: Never smoker Alcohol intake: current Drinks per week: 2 Substance use: never Substance use type: does not use Living arrangements: with family Gender identity (if verbalized by the patient): Female Spiritual care concerns: No Anes - Eval Final PreProcedure Day of Procedure 12/07/22 08:27 Patient weight: normal Heart: regular rate and rhythm Lungs: clear to auscultation Airway: Mallampati scale class II Neurological: alert and oriented Last oral intake: >/= 8 hours ASA classification: III Emergent: no Anesthetic plan: proceed Anesthesia type and monitoring: general LMA and standard monitoring Results Review: All pre-operative results and documents have been reviewed as part of the pre-operative evaluation. Informed Consent: The patient's anesthetic plan and its attendant risks and benefits were discussed with the patient/family/POA. Questions were solicited and answers provided to the satisfaction of the patient/fam
[2022-12-07] MEDS: ceFAZolin 2 GM/D5W 50 ML 2 GM/50 ML BAG IVPB (09:18)
[2022-12-07] MEDS: LIDOCAINE HCL 2% GEL UROJET 10 ML PKG MUCOUS MEM (09:44)
--- NOTE | 2022-12-07 09:49 | W.PM.PROC2 ---
Procedure Note - Detailed Date of Procedure 12/07/22 Pre-op Diagnosis right ureteral stone Post-op Diagnosis Other (Recently passed ureteral calculus) Procedure Performed Urethral dilation to 22 [place] Cystoscopy, right retrograde pyelogram, right ureteroscopy, right ureteral stent placement 4.8 [place] contour Surgeon Garrick Dunham MD Anesthesia General Description of Procedure Patient is taken to the operative suite correctly identified. Once anesthesia was obtained she was placed in dorsal lithotomy position and prepped and draped usual sterile fashion. The urethra was dilated to 22 [place]. Nineteen [place] cystoscope was inserted the bladder. There is no tumors noted. The right ureteral orifice was cannulated with a guidewire and dilated with an 8/10 dilator. Both a rigid and flexible ureteral scope were used to evaluate the entire ureter. There was no evidence of any ureteral or renal calculus. Patient may have recently passed a stone. Due to the instrumentation pyelogram was then performed to confirm placement of a 4.8 [place] contour stent with the proximal end coiled in the renal pelvis and the distal in the bladder. The string was left attached to the stent in she can remove that stent in a couple days. She should follow-up in approximately 3-4 weeks with a renal ultrasound to make sure there is no residual hydronephrosis. Please send a copy this report to my office. Estimated Blood Loss 0 Drains Yes Packing No Pathology None sent Complications No immediate complications Condition Stable Disposition PACU
[2022-12-07] MEDS: fentaNYL CITRATE INJ (*CRX) 100 MCG/2 ML VIAL 25 MCG IV PUSH (10:28)
== END 2022-12-07 11:51 | disposition home or self-care (01) ==
PROVIDERS: PCP Internal Medicine; Visit Provider Urology
PROC: (CPT 52352; principal; 2022-12-07 09:30)
DX: N20.1 Calculus of ureter (principal); I10 Essential (primary) hypertension; E78.5 Hyperlipidemia, unspecified; G25.0 Essential tremor; Z79.82 Long term (current) use of aspirin
CPT/HCPCS: 52332; 74420; 93005; C1769; C2617; J0690; J1100; J2250; J2405; J2704; J3010; J7120

== ENCOUNTER → 2022-12-31 12:41 | Outpatient (CLI) | payer MEDICARE, SELFPAY ==
--- NOTE | ~2022-12-31 | CT_ITS ---
Non-contrast CT scan of the Abdomen and Pelvis Clinical indication: Right flank pain Technique: 2.5 mm axial scans were obtained through the abdomen and pelvis without intravenous or or al contrast. Dose reduction technique was used on this scan by utilizing automated exposure control a nd iterative reconstruction technique. The dose-length product (DLP) was 662.01 mGy-cm. COMPARISON: 12/06/2022 Findings: Images through the lung bases reveal no abnormalities. There is no evidence of renal or ureteral calculi. The kidneys and the ureters are nondilated. The liver, spleen, pancreas, gallbladder, and left adrenal gland appear normal. Stable small right ad renal nodule, likely adenoma. There is no aortic aneurysm. There is no evidence of bowel obstruction. Images through the pelvis were performed. There is no evidence of ascites or lymphadenopathy. Urinary bladder unremarkable. No pelvic mass evident. No ascites. Impression: Right adrenal adenoma, unchanged. No other significant findings. Previously noted right UVJ stone is no longer present. Reviewed, dictated and finalized at location . IVAL STUDIES PROFESSOR Impression: Right adrenal adenoma, unchanged. No other significant findings. Previously noted right UVJ stone is no longer pr esent.
--- NOTE | ~2022-12-31 | XR_ITS ---
XR abdomen/kub 1V 12/31/2022 12:54 INDICATION: Right flank pain TECHNIQUE: KUB COMPARISON: None FINDINGS: Bowel gas pattern is normal. There is no evidence of free air, mass, organomegaly, ascites or obstruction. No abnormal calculi are seen. There is levoscoliosis of the thoracolumbar spine. Th e bones appear intact. IMPRESSION: 1: No acute abdominal abnormality identified. Reviewed, dictated and finalized at location B. DEVELOPER
== END ==
PROVIDERS: PCP Internal Medicine; Visit Provider Urology
DX: R10.9 Unspecified abdominal pain (principal); D35.01 Benign neoplasm of right adrenal gland
CPT/HCPCS: 74018; 74176

== ENCOUNTER → 2023-05-10 13:59 | Outpatient (CLI) | payer MEDICARE, SELFPAY ==
--- NOTE | ~2023-05-10 | MR_ITS ---
EXAMINATION: MR IAC wo/w con DATE: 05/10/2023 14:50 INDICATION: Asymmetrical sensorineural hearing loss. Tinnitus. Dizziness. TECHNIQUE: Magnetic resonance imaging (MRI) of the brain, brainstem, and internal auditory canals was performed without and with 13 mL MultiHance intravenous contrast. COMPARISON: Head CT 02/20/2021 FINDINGS: There are scattered areas of nonspecific increased T2-weighted signal intensity in the cere bral white matter. There is no intracranial hemorrhage, acute infarction, or abnormal intracranial ma ss lesion. The ventricles are normal in size. The orbits are normal. The paranasal sinuses are clear. The internal auditory canals and inner and middle ears are normal. The mastoid air cells are normal. IMPRESSION: 1. Mild nonspecific cerebral white matter disease, which likely represents chronic small vessel ische meche disease. Reviewed, dictated and finalized at location E. IMPRESSION: 1. 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
== END ==
PROVIDERS: PCP Internal Medicine; Visit Provider Otolaryngology
DX: H90.5 Unspecified sensorineural hearing loss (principal); R93.0 Abnormal findings on diagnostic imaging of skull and head, not elsewhere classified
CPT/HCPCS: 70553; A9577

== ENCOUNTER 2023-05-26 06:55 | Day surgery (SDC) | payer MEDICARE, SELFPAY ==
[2023-05-17 09:43] VITALS: BMI 24.7
--- NOTE | 2023-05-25 13:52 | WPDANESEPPF ---
Anes - Initial Pre Proc Eval Procedure: Operation Date: 05/26/23 09:00 Proposed Procedures p Screening Colonoscopy - Cyrus Grijalva MD Date/Time: 05/25/23 13:52 Surgeon: Cyrus Grijalva MD Pre Op Diagnosis: Neoplasm Screening Patient Data Age: 68 Gender: F Height: 1.65 m Weight: 67.5 kg Allergies Allergy/AdvReac Type Severity Reaction Status Date / Time simvastatin AdvReac Mild Itching Verified 05/26/23 07:32 Home Medications Medication Instructions Recorded Confirmed Type estradiol 1 mg tablet 1 mg PO DAILY 02/20/21 05/26/23 History multivit with minerals-iron 18 1 tablet PO DAILY 02/20/21 05/26/23 History mg-folic ac 400 mcg-vit K 25 mcg tablet (Adults Multivitamin) omeprazole 20 mg capsule,delayed 20 mg PO DAILY 02/20/21 05/26/23 History release propranolol 20 mg tablet 40 mg PO HS TREMORS 02/20/21 05/26/23 History zolpidem 10 mg tablet 10 mg PO HS 02/20/21 05/26/23 History meclizine 25 mg tablet 25 mg PO Q6HR PRN Vertigo #30 tabs 02/22/21 05/26/23 Rx aspirin 81 mg tablet,delayed 81 mg PO HS 12/06/22 05/26/23 History release (Adult Low Dose Aspirin) calcium citrate 315 mg-vitamin D3 1 tablet PO BID 12/06/22 05/26/23 History 5 mcg (200 unit) tablet (Calcium Citrate + D) cetirizine 10 mg tablet (Zyrtec) 10 mg PO DAILY 12/06/22 05/26/23 History magnesium citrate 125 mg capsule 833 mg PO DAILY 12/06/22 05/26/23 History polyethylene glycol 3350 17 17 g PO DAILY 12/06/22 05/26/23 History gram/dose oral powder (Miralax) [id number] oil-omega 3-vit E 1 cap PO DAILY 05/17/23 05/26/23 History 50 mg-550 mg-300 mg-30 unit capsule Patient hx anesthesia problems: none Family hx anesthesia problems: none Results Review: All pre-operative results and documents have been reviewed as part of the pre-operative evaluation. [facility] Past Medical History Medical History Arthritis Essential tremor HTN (hypertension) Hyperlipidemia Family History Family History Father Family history of alcoholism Family history of chronic obstructive pulmonary disease Family history of heart disease in male family member before age 55 Sibling Family history of malignant neoplasm of breast in first degree relative Family history of lung disease Mother Family history of congestive heart failure Family history of heart disease in male family member before age 55 Other Family history of malignant neoplasm Hypertension Social History Social History Smoking status: Never smoker Alcohol intake: current Drinks per week: 2 Substance use: never Substance use type: does not use Living arrangements: with family Gender identity (if verbalized by the patient): Female Spiritual care concerns: No Anes - Eval Final PreProcedure Day of Procedure 05/25/23 13:52 Patient weight: normal Heart: regular rate and rhythm Lungs: clear to auscultation and normal air movement Airway: Mallampati scale class II Neurological: alert and oriented Last oral intake: >/= 8 hours ASA classification: II Emergent: no Anesthetic plan: proceed Anesthesia type and monitoring: general GIVS and standard monitoring Results Review: All pre-operative results and documents have been reviewed as part of the pre-operative evaluation. Informed Consent: The patient's anesthetic plan and its attendant risks and benefits were discussed with the patient/family/POA. Questions were solicited and answers provided to the satisfaction of the patient/family/POA.
--- NOTE | 2023-05-25 21:56 | PM.HPGS ---
History of Present Illness History of Present Illness Consent: Risks, benefits, and alternatives have been discussed and questions answered. Patient agrees to proceed with procedure. Chief complaint: Neoplasm Screening Narrative: Christelle Flower is a 68 year old female who is referred for colon cancer screening. Review of Systems Review of Systems: All systems reviewed & are unremarkable except as noted in HPI and below PMFSH Past Medical History Medical History Arthritis Essential tremor HTN (hypertension) Hyperlipidemia Family History Family History Father Family history of alcoholism Family history of chronic obstructive pulmonary disease Family history of heart disease in male family member before age 55 Sibling Family history of malignant neoplasm of breast in first degree relative Family history of lung disease Mother Family history of congestive heart failure Family history of heart disease in male family member before age 55 Other Family history of malignant neoplasm Hypertension Social History Social History Smoking status: Never smoker Alcohol intake: current Drinks per week: 2 Substance use: never Substance use type: does not use Living arrangements: with family Gender identity (if verbalized by the patient): Female Spiritual care concerns: No Meds Home Medications and Allergies Home Medications Medication Instructions Recorded Confirmed Type estradiol 1 mg tablet 1 mg PO DAILY 02/20/21 05/26/23 History multivit with minerals-iron 18 1 tablet PO DAILY 02/20/21 05/26/23 History mg-folic ac 400 mcg-vit K 25 mcg tablet (Adults Multivitamin) omeprazole 20 mg capsule,delayed 20 mg PO DAILY 02/20/21 05/26/23 History release propranolol 20 mg tablet 40 mg PO HS TREMORS 02/20/21 05/26/23 History zolpidem 10 mg tablet 10 mg PO HS 02/20/21 05/26/23 History meclizine 25 mg tablet 25 mg PO Q6HR PRN Vertigo #30 tabs 02/22/21 05/26/23 Rx aspirin 81 mg tablet,delayed 81 mg PO HS 12/06/22 05/26/23 History release (Adult Low Dose Aspirin) calcium citrate 315 mg-vitamin D3 1 tablet PO BID 12/06/22 05/26/23 History 5 mcg (200 unit) tablet (Calcium Citrate + D) cetirizine 10 mg tablet (Zyrtec) 10 mg PO DAILY 12/06/22 05/26/23 History magnesium citrate 125 mg capsule 833 mg PO DAILY 12/06/22 05/26/23 History polyethylene glycol 3350 17 17 g PO DAILY 12/06/22 05/26/23 History gram/dose oral powder (Miralax) [id number] oil-omega 3-vit E 1 cap PO DAILY 05/17/23 05/26/23 History 50 mg-550 mg-300 mg-30 unit capsule Allergies Allergy/AdvReac Type Severity Reaction Status Date / Time simvastatin AdvReac Mild Itching Verified 05/26/23 07:32 Exam Const: General: alert Orientation/consciousness: patient oriented x3 Resp: Auscultation: clear to auscultation bilaterally Cardio: Rhythm: regular rhythm GI: GI Palp: Yes Soft to palpation and No Tenderness to palpation present (GI) Neuro: General: patient oriented x3 Assessment and Plan Assessment and plan (1) Colon cancer screening: Code(s): Z12.11 - Encounter for screening for malignant neoplasm of colon Status: Acute Assessment and Plan: Colonoscopy with possible biopsy or polypectomy or cautery or injection of substances.
[2023-05-26 07:35] VITALS: BP 128/91; PULSE 74; RESP 16; TEMP 36.8; O2SAT 98
[2023-05-26] MEDS: LACTATED RINGERS 1,000 ML 150 ML IV CONT (07:42)
--- NOTE | 2023-05-26 08:50 | SUR.PHASEII ---
CHARTED IN ERROR ON THIS PT IN PHASE 2
[2023-05-26 09:03] VITALS: BP 116/70; PULSE 66; RESP 18; O2SAT 99
[2023-05-26 09:13] VITALS: BP 118/71; PULSE 59; RESP 18; O2SAT 99
[2023-05-26 09:23] VITALS: BP 132/73; PULSE 55; RESP 18; O2SAT 100
--- NOTE | 2023-05-26 09:24 | SUR.PHASEII ---
CORRECTED VITAL SIGNS TO REFLECT CORRECT TIME AND ASSESSMENT.
--- NOTE | 2023-05-26 10:53 | WPDANESPN ---
Anes - Prog Note Post-Op Date/Time: 05/26/23 10:53 Cardiovascular status: normal Respiratory status: normal Airway patency: baseline Mental status: baseline Post-Op hydration status: normal Vital Signs: Last Vital Signs Temp 36.8 C 05/26/23 07:35 Pulse 55 L 05/26/23 09:23 Resp 18 05/26/23 09:23 BP 132/73 05/26/23 09:23 Pulse Ox 100 05/26/23 09:23 O2 Del Method Room Air 05/26/23 09:23 Pain Score (VAS): 0 I/O: Intake & Output 05/25/23 05/26/23 05/26/23 23:59 07:59 15:59 Intake Total 600 Balance 600 Post-procedural complaints: none Patient Feedback: Patient satisfied with anesthetic care. Other Findings: Patient vital signs back to baseline. Patient denies nausea and vomiting. Patient's pain under control. Patient OK for discharge.
== END 2023-05-26 09:35 | disposition home or self-care (01) ==
PROVIDERS: PCP Internal Medicine; Visit Provider Internal Medicine Gastroenterology
PROC: 0DJD8ZZ Inspection of Lower Intestinal Tract, Via Natural or Artificial Opening Endoscopic (ICD-10-PCS; CPT 45378; principal; 2023-05-26 09:00)
DX: Z12.11 Encounter for screening for malignant neoplasm of colon (principal); D12.0 Benign neoplasm of cecum; K57.30 Diverticulosis of large intestine without perforation or abscess without bleeding
CPT/HCPCS: 45380

== ENCOUNTER 2023-05-26 08:00 | Outpatient (NON) | payer MEDICARE, SELFPAY | END 2023-05-26 08:01 | disposition home or self-care (01) | LOC: ANHLAB 05-27 10:09 | PROVIDERS: PCP Internal Medicine; Visit Provider Internal Medicine Gastroenterology | DX: Z12.11 Encounter for screening for malignant neoplasm of colon (principal) | CPT/HCPCS: 88305 ==

== ENCOUNTER → 2023-10-03 11:12 | Outpatient (CLI) | payer MEDICARE, SELFPAY ==
--- NOTE | ~2023-10-03 | MR_ITS ---
MRI of the lumbar spine Clinical History: Left sciatica Technique: Axial T2-weighted images, and sagittal T1-weighted, T2-weighted, and T2 fat-sat images wer e acquired. Findings: There is no fracture or subluxation of the lumbar spine. Vertebral bodies maintain normal h eight and alignment. There are reactive marrow signal changes about the L4-L5 disc space due to under lying degenerative disc disease. At L1-L2, there is severe degenerative disc narrowing. There is minimal disc bulge with minimal facet arthropathy. No central canal stenosis or neural foraminal narrowing. At L2-L3, there is no disc bulge or herniation. No spinal canal stenosis or neural foraminal narrowin g. At L3-L4, there is minimal disc bulge. No central canal stenosis or neural foraminal narrowing. At L4-L5, there is advanced degenerative disc narrowing. There is minimal disc bulge and mild facet a rthropathy. No central canal stenosis. There is mild left neural foraminal narrowing. At L5-S1, there is minimal disc bulge. No central canal stenosis or neural foraminal narrowing. Paravertebral soft tissues are unremarkable. Impression: Mild spondylosis, as above. Reviewed, dictated and finalized at location M. 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
== END ==
PROVIDERS: PCP Internal Medicine; Visit Provider Internal Medicine
DX: M54.32 Sciatica, left side (principal)
CPT/HCPCS: 72148

== ENCOUNTER 2024-01-25 10:24 | Outpatient (CLI) | payer MEDICARE, SELFPAY ==
--- NOTE | ~2024-01-25 | MR_ITS ---
EXAMINATION: MR thoracic spine wo con DATE: 01/25/2024 11:33 INDICATION: Gait abnormality. Myelopathy. TECHNIQUE: Magnetic resonance imaging (MRI) of the thoracic spine was performed without intravenous c ontrast. Sagittal localizer T1-weighted FSE of the cervical spine was obtained. Thoracic spine sequen cinthia included sagittal T2-weighted FSE, sagittal T1-weighted FSE, sagittal T2-weighted FS FSE, and axi al T2-weighted FSE. COMPARISON: None FINDINGS: There is 14 degrees dextroscoliosis of thoracic spine. Vertebral body heights are normal. T here is mildly decreased disc height from T2-T3 through T6-T7, moderately decreased disc height at T7 -T8, severely decreased disc height from T8-10-9 through T10-T11, moderately decreased disc height at T11-T12, and severely decreased disc height at T12-L1. At T5-T6, there is a central protrusion with mild central canal stenosis and ventral indentation of the spinal cord. The discs are bulging from T6 -T7 through T12-L1 with mild central canal stenosis. There is multilevel facet joint osteoarthritis, severe at many levels. On the right, there is mild neural foraminal stenosis at T2-T3, T3-T4, T4-T5, T11-T12, and T12-L1. On the left, there is mild neural foraminal stenosis at T9-T10, T10-T11, and T11 -T12. IMPRESSION: 1. Severe thoracic spondylosis. 2. Thoracic dextroscoliosis. Reviewed, dictated and finalized at location A.
--- NOTE | ~2024-01-25 | MR_ITS ---
EXAMINATION: MR cervical spine wo con DATE: 01/25/2024 11:31 INDICATION: Gait abnormality. Myelopathy. Bilateral leg weakness. TECHNIQUE: Magnetic resonance imaging (MRI) of the cervical spine was performed without intravenous c ontrast. COMPARISON: None FINDINGS: There is 2 mm retrolisthesis of C4 on C5 and C5 on C6 and 2 mm anterolisthesis of C7 on T1. Vertebral body heights are normal. There is severely decreased disc height at C4-C5, C5-C6, and C6-C 7 and mildly decreased disc height at C7-T1. The spinal cord signal intensity is normal. The followin g disc levels are specifically discussed: C2-C3: The disc does not extend beyond the endplate margin. There is no uncovertebral joint osteoarth ritis. There is mild right and moderate left facet joint osteoarthritis. There is mild left neural fo raminal stenosis. There is no central canal stenosis. C3-C4: There is a central extrusion. There is mild bilateral uncovertebral joint osteoarthritis. Ther e is severe right and moderate left facet joint osteoarthritis. There is mild bilateral neural forami nal stenosis. There is no central canal stenosis. C4-C5: The disc is bulging. There is severe bilateral uncovertebral joint osteoarthritis. There is mi ld right and moderate left facet joint osteoarthritis. There is moderate bilateral neural foraminal s tenosis. There is mild central canal stenosis. C5-C6: The disc is bulging. There is severe bilateral uncovertebral joint osteoarthritis. There is mo derate bilateral facet joint osteoarthritis. There is moderate right and mild left neural foraminal s tenosis. There is mild central canal stenosis. C6-C7: The disc is bulging. There is severe bilateral uncovertebral joint osteoarthritis. There is mi ld bilateral facet joint osteoarthritis. There is mild bilateral neural foraminal stenosis. There is mild central canal stenosis. C7-T1: There is a central extrusion. There is no uncovertebral joint osteoarthritis. There is severe bilateral facet joint osteoarthritis. There is mild bilateral neural foraminal stenosis. There is no central canal stenosis. IMPRESSION: 1. Severe cervical spondylosis. Reviewed, dictated and finalized at location A.
== END 2024-01-25 10:25 ==
LOC: GOSHIMG 10:28
PROVIDERS: PCP Internal Medicine
DX: R26.9 Unspecified abnormalities of gait and mobility (principal); M47.894 Other spondylosis, thoracic region; M47.892 Other spondylosis, cervical region
CPT/HCPCS: 72141; 72146

== ENCOUNTER 2024-02-13 10:50 | Outpatient (CLI) | payer MEDICARE, SELFPAY ==
--- NOTE | ~2024-02-13 | MR_ITS ---
EXAMINATION: MR thoracic spine wo/w con DATE: 02/13/2024 11:39 INDICATION: Other spondylosis with myelopathy, thoracic region. TECHNIQUE: Magnetic resonance imaging (MRI) of the thoracic spine was performed without and with 13 m L MultiHance intravenous contrast. COMPARISON: Thoracic spine MRI 01/25/2024 FINDINGS: There is 14 degrees dextroscoliosis of thoracic spine and 16 degrees levoscoliosis of thora columbar spine. There is 2 mm anterolisthesis of C7 on T1. Vertebral body heights are normal. There i s mildly decreased disc height at multiple levels. There is severely decreased disc height at T8-T9, T9-T10, T10-T11, and T12-L1. There is multilevel facet joint osteoarthritis, severe in the upper and lower thoracic spine. On the right, there is mild neural foraminal stenosis at T2-T3, T3-T4, T4-T5, T 11-T12, and T12-L1. On the left, there is mild neural foraminal stenosis at T9-T10, T11-T12, and T12- L1. At T5-T6, there is a central protrusion with mild central canal stenosis and ventral indentation of spinal cord. At T6-T7, there is a right central protrusion with mild central canal stenosis. The d iscs are bulging from T8-T9 through T12-L1 with mild central canal stenosis. There is increased T2-we ighted signal intensity in the spinal cord at T8-T9 and T10-T11. IMPRESSION: 1. Lesions of increased T2-weighted signal intensity in the spinal cord at T8-T9 and T10-T11. The dif ferential diagnosis includes multiple sclerosis, transverse myelitis, and viral myelitis. 2. Severe thoracic spondylosis. 3. Scoliosis. Reviewed, dictated and finalized at location E. IMPRESSION: 1. Lesions of increased T2-weighted signal intensity in the spinal cord at T8-T 9 and T10-T11. The differential diagnosis includes multiple sclerosis, transver se myelitis, and viral myelitis. 2. Severe thoracic spondylosis. 3. Scoliosis.
== END 2024-02-13 10:51 ==
PROVIDERS: PCP Internal Medicine
DX: M47.14 Other spondylosis with myelopathy, thoracic region (principal); M41.9 Scoliosis, unspecified
CPT/HCPCS: 72157; A9577

== ENCOUNTER 2025-01-01 10:36 | Outpatient (CLI) | payer MEDICARE, SELFPAY | END 2025-01-01 10:37 | disposition home or self-care (01) | PROVIDERS: PCP Internal Medicine; Visit Provider Internal Medicine | DX: R05.9 Cough, unspecified (principal) | CPT/HCPCS: 71046 ==

== ENCOUNTER 2025-02-06 15:41 | Outpatient (CLI) | payer MEDICARE, SELFPAY ==
--- NOTE | ~2025-02-06 | MM_ITS ---
EXAMINATION: MM screening ed BI w melissa HISTORY: Screening TECHNIQUE: Craniocaudal and mediolateral oblique 3-D tomosynthesis images were obtained and synthetic 2-D images were generated. CAD analysis was submitted and interpreted. COMPARISON: No prior mammogram is available for comparison at this institution. BREAST PARENCHYMAL COMPOSITION: Not dense: There are scattered areas of fibroglandular density. FINDINGS: There is no evidence of suspicious mass, calcification, or architectural distortion to sugg est malignancy in either breast. IMPRESSION: 1. No mammographic evidence of malignancy. 2. Recommend routine screening mammography in one year. BI-RADS Category 1: Negative Reviewed, dictated and finalized at location A.
--- OUTSIDE RECORDS SUMMARY | 2025-02-06 16:54 | XMS_ITS | CONTINUITY OF CARE DOCUMENT ---
Author Name ivan love Address Unknown Organization [facility] Address [address] [place] [address] Phone [phone] Care Team Providers Care Internal Medicine Hospitalist Name Role Phone Ben Estrella MD Unavailable SONY DOW MD Unavailable SONY DOW MD Unavailable [phone] PROBLEMS Condition Status Date Provider Notes FAMILY HX. OF OTHER CARDIOVASCULAR DISEASE active 2008 Aakash Winston MD CHEST PAIN-NL CARDIAC CATH 10/05 active Quang Winston MD HTN ESSENTIAL NL LVSF active Aakash Braden ENCOUNTERS Date Type Provider Location Encounter Diagnosis - In-person encounter Office Visit Aakash Winston MD [place] [facility] - In-person encounter Office Visit Aakash Winston MD [facility] - In-person encounter Office Visit Aakash Winston MD [facility] VITAL SIGNS Date Observation Value Provider weight E&M 150 [lb_av] Christian Ramos RN blood pressure, diastolic 74 mm[Hg] [place] blood pressure, systolic 122 mm[Hg] Jacinto Martin pulse rate 58 /min Corin Martin oxygen saturation, oximetry 99 % Corin Martin respiratory rate E&M 16 /min Corin Martin blood pressure, diastolic 65 mm[Hg] Sudarshan Farrell blood pressure, systolic 125 mm[Hg] John Paul Farrell pulse rate 71 /min Kenyatta Farrell oxygen saturation, oximetry 97 % Kenyatta Farrell respiratory rate E&M 16 /min Axel Farrell weight E&M 147 [lb_av] Kenyatta Farrell blood pressure, diastolic 82 mm[Hg] Chelsea giraldo Alberto [facility] blood pressure, systolic 120 mm[Hg] Inder espinoza Dominguez MA pulse rate 70 /min Karrie Dominguez MA oxygen saturation, oximetry 98 % Karrie Dominguez MA respiratory rate E&M 18 /min Karrie Dominguez MA weight E&M 151 [lb_av] Karrie Dominguez MA ALLERGIES Allergy Name Onset Date Reaction Criticality Status DARVOCET High Criticality active HISTORY OF MEDICATION USE Medication Status Instructions Dates Provider Indications Com ments COVARYX TABLET active 1 tab daily Corin Martin ALENDRONATE SODIUM 70 MG ORAL TABLET active 1 tab weekly Denantonio Martin FLEXERIL 10 MG TABS completed po daily - Corin Martin JUICE PLUS FIBRE ORAL LIQUID active Kenyatta Farrell DICLOFENAC SODIUM ER 100 MG ORAL TABLET EXTENDED RELEASE 24 HOUR completed take daily - Corin Martin SIMVASTATIN 20 MG ORAL TABLET active ONE TAB. DAILY Kenyatta Farrell LISINOPRIL TABS active take daily Kenyatta Farrell ESTRACE TABLET completed oncec daily - Corin Martin ASPIRIN 81 MG ORAL TABLET completed ONE TAB. DAILY - Karrie Dominguez MA AMBIEN 10 MG ORAL TABLET active ONE TAB. AT BEDTIME Makenzie Stahlschmidt PREMARIN TABS completed - Karrie Dominguez MA PROZAC 20 MG ORAL CAPSULE active ONE TAB. DAILY Makenzie Stahlschmidt BENICAR HCT 20-12.5 MG ORAL TABLET completed ONE TAB. DAILY - Karrie Dominguez MA SOCIAL HISTORY Date Observation Value Provider social history reviewed E&M reviewed Christian Ramos RN social history reviewed E&M reviewed Aakash Winston MD social history E&M Marital Status: Marrie d Aakash Winston MD drug use none Aakash Winston MD social history reviewed E&M reviewed Aakash Winston MD physical exercise, f requency, days per week yes LinkLog caffeine use, averag e drinks per day yes LinkLog alcohol use, average drinks per day none LinkLog smoking status Non-smoker LinkLog MENTAL STATUS Date Observation Value Provider assessment of judgme nt and insight E&M Alert and oriented to time, place and person. Mood and affect are normal. Aakash Winston MD assessment of judgme nt and insight E&M Alert and oriented to time, place and person. Mood and affect are normal. Aakash Winston MD assessment of judgme nt and insight E&M Alert and oriented to time, place and person. Mood and affect are normal. Aakash Winston MD INSURANCE PROVIDERS Payer name Policy type / Coverage type [place] [employer] party ID [employer] [facility] ADVANTAGE PLAN 2 (HMO-POS) Medicare [id number] TREATMENT PLAN Date Name Performer follow up: H er updated medication list for this problem includes: Lisinopril Tabs (Lisinopril tabs) ..... Take daily Orders: E KG ([id number]) BP today: 122/74 P rior BP: 125/65 (05/15/2010) Aakash Winston MD follow up: H er updated medication list for this problem includes: Lisinopril Tabs (Lisinopril tabs) ..... Take daily BP today: 122/74 Prior BP: 125/65 (05/15/2010) N uclear Stress Findings: E F- 67%. T he inferior lead changes especially are considered to be suggestive for ischemia. N ormal myocardial perfusion without infarct or ischemia. [facility] (06/06/2006) C ardiac Cath: Normal coronary arteries. N ormal LV systolic function. PCL (06/16/2006) E chocardiogram: Normal LV chamber dimensions and systolic function. EF 65%. Normal E/E` 5. No clinically significant valvular abnormalities. [place] [facility] (03/21/2009) Aakash Winston MD follow up Aakash Winston MD f/u: H er updated medication list for this problem includes: Lisinopril Tabs (Lisinopril tabs) ..... Take daily BP today: 125/65 P rior BP: 120/82 (03/07/2009) Aakash Winston MD f/u: H er updated medication list for this problem includes: Lisinopril Tabs (Lisinopril tabs) ..... Take daily BP today: 125/65 Prior BP: 120/82 (03/07/2009) N uclear Stress Findings: E F- 67%. T he inferior lead changes especially are considered to be suggestive for ischemia. N ormal myocardial perfusion without infarct or ischemia. [facility] (06/06/2006) C ardiac Cath: Normal coronary arteries. N ormal LV systolic function. PCL (06/16/2006) E chocardiogram: Normal LV chamber dimensions and systolic function. EF 65%. Normal E/E` 5. No clinically significant valvular abnormalities. [place] [facility] (03/21/2009) Aakash Winston MD FU: Room 7: H er updated medication list for this problem includes: Lisinopril Tabs (Lisinopril tabs) ..... Once daily BP today: 120/82 Aakash Winston MD FU: Room 7 Aakash Winston MD FU: Room 7: H er updated medication list for this problem includes: Lisinopril Tabs (Lisinopril tabs) ..... Once daily BP today: 120/82 Prior BP: / () N uclear Stress Findings: E F- 67%. T he inferior lead changes especially are considered to be suggestive for ischemia. N ormal myocardial perfusion without infarct or ischemia. [facility] (06/06/2006) C ardiac Cath: Normal coronary arteries. N ormal LV systolic function. PCL (06/16/2006) Aakash Winston MD HISTORY OF PROCEDURES Procedure Date Procedure Name Provider Procedure Notes S tatus EKG Aakash Winston MD completed
--- OUTSIDE RECORDS SUMMARY | 2025-02-06 16:55 | XMS_ITS | Encounter Summary ---
Author Organization [facility] Address [address] [place] [address] Care Team Providers Care Manager Emergency Department Name Role Phone Dipak Plascencia MD Primary Care Provider [phone] Reason for Visit * Reason Onset Date Comments Appointment 04/08/2022 Encounter Details Date Type Department Care Team (Late st Contact Info) Description 04/08/2022 Telephone [id number] [place] [address] [place] [address] [place] [id number] Appointment Social History Tobacco Use Types Packs/Day Years Used Date Smoking Tobacco: Never Smokeless Tobacco: Never Alcohol Use Standard Drinks/Week Comments Yes 0 (1 standard drink = 0.6 oz pur e alcohol) AUDIT-C Answer Date Recorded Q1: How often do you have a drink containing alc ohol? Never 02/04/2021 Average Number of Drinks Not on file 021 Frequency of Binge Drinking Not on file 04/2021 Sex and Gender Information Value Date Recorded Sex Assigned at Female 06/01/2023 8:49 AM CDT Gender Identity Female 06/01/2023 8:49 AM CDT Sexual Orientation Not on file documented as of this encounter Miscellaneous Notes * Telephone Encounter - Pari Hook Garcia - 04/08/2022 9:15 AM CDT Current Provider name:DEBI Reason for call: Patient Christelle Flower would like to reschedule her Botox appointment with for 06/17/2022. Per guidelines clinic to schedule/reschedule. Unable to reach clinic staff. Patient Call Back number: [phone] documented in this encounter Plan of Treatment Not on file documented as of this encounter Visit Diagnoses Not on filedocumented in this encounter Care Teams Manager Emergency Department Relationship Specialty Start Date End Date Dipak Plascencia MD PCP - General 03/25/21 documented as of this encounter
--- OUTSIDE RECORDS SUMMARY | 2025-02-06 16:55 | XMS_ITS | Encounter Summary ---
Author Organization [facility] Address [address] [place] [address] Care Team Providers Care Slate Handler Name Role Phone Dipak Plascencia MD Primary Care Provider [phone] Reason for Visit * Reason Onset Date Comments Med Question 06/18/2024 Encounter Details Date Type Department Care Team (Late st Contact Info) Description 06/18/2024 Telephone [facility] - Centralized Scheduling [address] [place] [id number] Celso Saravia MD Med Question Social History Tobacco Use Types Packs/Day Years [...] of Binge Drinking Not on file 04/2021 PHQ-2 Answer Date Recorded Patient Health Questionnaire-2 Score 0 03/13/2024 Sex and Gender Information Value Date Recorded Sex Assigned at Female 06/01/2023 8:49 AM CDT Gender Identity Female 06/01/2023 8:49 AM CDT Sexual Orientation Not on file documented as of this encounter Miscellaneous Notes * Telephone Encounter - Linda Prasannabharath - 06/18/2024 10:06 AM CDT Patient called in to discuss with Dr. Mayo her updated treatment plan. She stated that wanted to know her availability. Patient would like to be contacted through her MyChart. documented in this encounter Plan of Treatment Not on file documented as of this encounter Visit Diagnoses Not on filedocumented in this encounter Care Teams Slate Handler Relationship Specialty Start Date End Date Dipak Plascencia MD PCP - General 03/25/21 documented as of this encounter
--- OUTSIDE RECORDS SUMMARY | 2025-02-06 16:55 | XMS_ITS | Encounter Summary ---
Author Organization [facility] Address [address] [place] [address] Care Team Providers Care Television Host Name Role Phone Dipak Plascencia MD Primary Care Provider [phone] Encounter Details Date Type Department Care Team (Late st Contact Info) Description 02/10/2023 Telephone [facility] SCHEDULING [address] [place] [phone] Celso Saravia MD Social History Tobacco Use Types Packs/Day Years [...] encounter Miscellaneous Notes * Telephone Encounter - He Adam - 02/10/2023 8:34 AM CDT Pt has bumped BOT appt 05/18/2023. Pls reschedule documented in this encounter Plan of Treatment Not on file documented as of this encounter Visit Diagnoses Not on filedocumented in this encounter Care Teams Television Host Relationship Specialty Start Date End Date Dipak Plascencia MD PCP - General 03/25/21 documented as of this encounter
--- OUTSIDE RECORDS SUMMARY | 2025-02-06 16:55 | XMS_ITS | Encounter Summary ---
Author Organization [facility] Address [address] [place] [address] Care Team Providers Care Color Maker Dyer Name Role Phone Dipak Plascencia MD Primary Care Provider [phone] Encounter Details Date Type Department Care Team (Late st Contact Info) Description 10/15/2024 Telephone [facility] - Neurology [address] [place] [address], [facility] [place] [address] Jean Claude Ramsay, SONYA-HR ASSISTANT [address] [place] [phone] Social History Tobacco Use Types Packs/Day Years [...] encounter Miscellaneous Notes * Telephone Encounter - Betokelly Tomasa - 10/15/2024 1:20 PM CST Current Provider: Devendra Reason for Call: Pt called said she needs a botox injection with the doctor set up, can you please call her. If have to leave a message please leave your number. Patient Call Back Number: [phone] [facility] documented in this encounter Plan of Treatment Not on file documented as of this encounter Visit Diagnoses Not on filedocumented in this encounter Care Teams Color Maker Dyer Relationship Specialty Start Date End Date Dipak Plascencia MD PCP - General 03/25/21 documented as of this encounter
--- OUTSIDE RECORDS SUMMARY | 2025-02-06 16:55 | XMS_ITS | Data Portability ---
Author Organization [facility] Sharron Clayton Address [address] [place] [address] Care Team Providers Care Oak Tanner Name Role Phone SONY PLASCENCIA Primary Care Provider Unavailabl e Assessment Encounter Date Assessment Date Assessment LastModified by Organization Details LastModified Time 02/20/2024 02/20/2024 Obtain old records continue current therapy for hypertension constipation GERD tremor I recommended she walk with a cane she is going to follow-up with the capital markets specialist as well she will see me back in 4 months [email or web address] Not available 02/20/2024 23:13:43 02/27/2024 02/27/2024 All items discussed [email or web address] Not available 03/03/2024 21:20:57 06/25/2024 06/25/2024 we will continue current therapy wean down zolpidem 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 and going to start weaning down estradiol as well follow up with me in 4 months [email or web address] Not available 07/07/2024 17:51:21 12/06/2024 12/06/2024 overall clinically stable doing well we will continue with current therapy she will follow up with me in 4 months [email or web address] Not available 12/06/2024 22:51:11 Plan of Treatment Reminders Order Date Submit Date Provider Last Modified By Organization Details Last Modified Time Details Appointments ANY 15 2024 09:15A Rosetta Plascencia MD Not available Not available Not available Lab urinaly sis, dipstic k 2019 020 [email or web address] In-Office Order, Internal Use Only DO Not Attach Compendium DO Not Attach Compendium, Do Not Delete/merge, [id number] 01/17/2020 15:14:31 Referral None recorde d. Procedures None recorde d. Surgeries None recorde d. Imaging None recorde d. Medication Orders Linzess 290 mcg capsule 2019 020 [id number], [address], [place], [place], [id number], 02/20/2024 14:21:10 estradi ol 1 mg tablet 2019 020 [facility] #[id number], [address], [place], [place], [phone], 02/20/2024 14:27:54 multivi tamin tablet 2019 [facility][id number], [address], [place], [place], [id number], 01/16/2020 18:02:50 Calcium with Vitamin D 600 mg-10 mcg (400 unit) tablet 2019 020 [id number], [address], [place], [place], [phone], 01/16/2020 18:02:50 Patient TargetsNo targets recorded. Patient Instructions Encounter Date Encounter Id Patient Instructions Last Modified By Organization Details Last Modified Time 01/16/2020 [id number] learning about breast cancer screening chuy Not available 01/16/2020 16:39:20 02/27/2024 [id number] advance care planning: care instructions [email or web address] Not available 03/03/2024 21:20:57 preventing falls: care instructions [email or web address] Not available 03/03/2024 21:20:57 Medicare Wellness Preventive Checklist [email or web address] Not available 03/03/2024 21:20:57 Reason for Referral None Reported. Results Created Date Observation Date Name Description Value Unit Range Abnormal Flag Note LastModifiedBy Organization Detail LastModifiedTime 01/17/20 20 01/17/2020 urina lysis , dipst ick Leukocytes Negati ve Not Available In-Office Order Internal Use Only DO Not Attach Compendium DO Not Attach Compendium, Do Not Delete/merge, 01/17/2020 14:40:25 01/17/20 20 01/17/2020 urina lysis , dipst ick Nitrite negati ve Not Available In-Office Order Internal Use Only DO Not Attach Compendium DO Not Attach Compendium, Do Not Delete/merge, 01/17/2020 14:40:25 01/17/20 20 01/17/2020 urina lysis , dipst ick Urobilinogen .2 Not Available In-Of fice Order Internal Use Only DO Not Attach Compendium DO Not Attach Compendium, Do Not Delete/merge, 01/17/2020 14:40:25 01/17/20 20 01/17/2020 urina lysis , dipst ick Protein Trace Not Available In-Office Order Internal Use Only DO Not Attach Compendium DO Not Attach Compendium, Do Not Delete/merge, 01/17/2020 14:40:25 01/17/20 20 01/17/2020 urina lysis , dipst ick pH 5.5 Not Available In-Office Order Internal Use Only DO Not Attach Compendium DO Not Attach Compendium, Do Not Delete/merge, 01/17/2020 14:40:25 01/17/20 20 01/17/2020 urina lysis , dipst ick Blood Negati ve Not Available In-Office Order Internal Use Only DO Not Attach Compendium DO Not Attach Compendium, Do Not Delete/merge, 01/17/2020 14:40:25 01/17/20 20 01/17/2020 urina lysis , dipst ick Specific [place] 1.030 Not Available In-Off ice Order Internal Use Only DO Not Attach Compendium DO Not Attach Compendium, Do Not Delete/merge, 01/17/2020 14:40:25 01/17/20 20 01/17/2020 urina lysis , dipst ick Ketone Trace Not Available In-Office Order Internal Use Only DO Not Attach Compendium DO Not Attach Compendium, Do Not Delete/merge, 01/17/2020 14:40:25 01/17/20 20 01/17/2020 urina lysis , dipst ick Bilirubin Small Not Available In-Offic e Order Internal Use Only DO Not Attach Compendium DO Not Attach Compendium, Do Not Delete/merge, [id number] 01/17/2020 14:40:25 01/17/2001/17/2020 urina lysis , dipst ick Glucose Negati ve Not Available In-Office Order Internal Use Only DO Not Attach Compendium DO Not Attach Compendium, Do Not Delete/merge, [id number] 01/17/2020 14:40:25 08/23/2008/23/2023 Lipid 1996 panel - Serum or Plasm a cholesterol high burak stero l Not Available Not Available 12/31/2024 10:17:51 08/23/20 23 08/23/2023 Lipid 1996 panel - Serum or Plasm a triglyceride s high trigl yceri magui Not Available Not Available 12/31/2024 10:17:51 08/23/20 23 08/23/2023 Lipid 1996 panel - Serum or Plasm a HDL cholesterol HDL burak stero l Not Available Not Available 12/31/2024 10:17:51 08/23/2008/23/2023 Lipid 1996 panel - Serum or Plasm a cholesterol in LDL [mass/volume ] in serum or plasma high LDL burak stero l, calcu lated Not Available Not Available 12/31/2024 10:17:51 08/23/20 23 08/23/2023 Compr ehens estrella metab olic 1999 panel - Serum or Plasm a sodium low sodiu m Not Available Not Available 12/31/2024 10:17:51 08/23/20 23 08/23/2023 Compr ehens estrella metab olic 1999 panel - Serum or Plasm a potassium potas sium Not Available Not Available 12/31/2024 10:17:51 08/23/20 23 08/23/2023 Compr ehens estrella metab olic 1999 panel - Serum or Plasm a chloride chlor sal Not Available Not Available 12/31/2024 10:17:51 08/23/20 23 08/23/2023 Compr ehens estrella metab olic 1999 panel - Serum or Plasm a carbon dioxide high carbo n dioxi de Not Available Not Available 12/31/2024 10:17:51 08/23/20 23 08/23/2023 Compr ehens estrella metab olic 2000 panel - Serum or Plasm a anion gap low anion gap Not Available Not Available 12/31/2024 10:17:51 08/23/2008/23/2023 Compr ehens estrella metab olic 1999 panel - Serum or Plasm a glucose gluco se Not Available Not Available 12/31/2024 10:17:51 08/23/20 23 08/23/2023 Compr ehens estrella metab olic 1999 panel - Serum or Plasm a BUN high BUN Not Available Not Availa ble 12/31/2024 10:17:51 08/23/20 23 08/23/2023 Compr ehens estrella metab olic 1999 panel - Serum or Plasm a creatinine creat inine Not Available Not Available 12/31/2024 10:17:51 08/23/2008/23/2023 Compr ehens estrella metab olic 2000 panel - Serum or Plasm a GFR >60 GFR Not Available Not Availa ble 12/31/2024 10:17:51 08/23/20 23 08/23/2023 Compr ehens estrella metab olic 1999 panel - Serum or Plasm a alkaline phosphatase alkal ine phosp hatas e Not Available Not Available 12/31/2024 10:17:51 08/23/2008/23/2023 Compr ehens estrella metab olic 1999 panel - Serum or Plasm a alanine aminotransfe rase wendy ne amino trans feras e Not Available Not Available 12/31/2024 10:17:51 08/23/20 23 08/23/2023 Compr ehens estrella metab olic 1999 panel - Serum or Plasm a aspartate aminotransfe rase aspar burnette amino trans feras e Not Available Not Available 12/31/2024 10:17:51 08/23/20 23 08/23/2023 Compr ehens estrella metab olic 1999 panel - Serum or Plasm a bilirubin, total bilir ubin, total Not Available Not Available 12/31/2024 10:17:51 08/23/20 23 08/23/2023 Compr ehens estrella metab olic 2000 panel - Serum or Plasm a calcium calci um Not Available Not Available 12/31/2024 10:17:51 08/23/20 23 08/23/2023 Compr ehens estrella metab olic 2000 panel - Serum or Plasm a total protein total prote in Not Available Not Available 12/31/2024 10:17:51 08/23/20 23 08/23/2023 Compr ehens estrella metab olic 1999 panel - Serum or Plasm a albumin album in Not Available Not Available 12/31/2024 10:17:51 08/23/20 23 08/23/2023 Compr ehens estrella metab olic 1999 panel - Serum or Plasm a globulin globu sophia Not Available Not Available 12/31/2024 10:17:51 08/23/20 23 08/23/2023 Compr ehens estrella metab olic 2000 panel - Serum or Plasm a A/G ratio A/G ratio Not Available Not Available 12/31/2024 10:17:51 08/23/20 23 08/23/2023 CBC W Auto Diffe renti al panel - Blood white blood cells white blood cells Not Available Not Available 12/31/2024 10:17:50 08/23/20 23 08/23/2023 CBC W Auto Diffe renti al panel - Blood red blood cells red blood cells Not Available Not Available 12/31/2024 10:17:50 08/23/20 23 08/23/2023 CBC W Auto Diffe renti al panel - Blood hemoglobin hemog lobin Not Available Not Available 12/31/2024 10:17:50 08/23/20 23 08/23/2023 CBC W Auto Diffe renti al panel - Blood hematocrit hemat ocrit Not Available Not Available 12/31/2024 10:17:50 08/23/20 23 08/23/2023 CBC W Auto Diffe renti al panel - Blood mean red cell volume mean red cell volum e Not Available Not Available 12/31/2024 10:17:50 08/23/20 23 08/23/2023 CBC W Auto Diffe renti al panel - Blood mean red cell hemoglobin mean red cell hemog lobin Not Available Not Available 12/31/2024 10:17:50 08/23/20 23 08/23/2023 CBC W Auto Diffe renti al panel - Blood mean RBC HGB concentratio n mean RBC HGB bernardo ntrat ion Not Available Not Available 12/31/2024 10:17:50 08/23/20 23 08/23/2023 CBC W Auto Diffe renti al panel - Blood red cell distribution width red cell distr ibuti on width Not Available Not Available 12/31/2024 10:17:50 08/23/20 23 08/23/2023 CBC W Auto Diffe renti al panel - Blood platelets plate lets Not Available Not Available 12/31/2024 10:17:50 08/23/20 23 08/23/2023 CBC W Auto Diffe renti al panel - Blood mean platelet volume mean plate let volum e Not Available Not Available 12/31/2024 10:17:50 08/23/20 23 08/23/2023 CBC W Auto Diffe renti al panel - Blood neutrophils neutr ophil s Not Available Not Available 12/31/2024 10:17:50 08/23/20 23 08/23/2023 CBC W Auto Diffe renti al panel - Blood lymphocytes lymph ocyte s Not Available Not Available 12/31/2024 10:17:50 08/23/20 23 08/23/2023 CBC W Auto Diffe renti al panel - Blood monocytes monoc ytes Not Available Not Available 12/31/2024 10:17:50 08/23/20 23 08/23/2023 CBC W Auto Diffe renti al panel - Blood eosinophils eosin ophil s Not Available Not Available 12/31/2024 10:17:50 08/23/20 23 08/23/2023 CBC W Auto Diffe renti al panel - Blood basophils basop hils Not Available Not Available 12/31/2024 10:17:50 08/23/20 23 08/23/2023 CBC W Auto Diffe renti al panel - Blood immature granulocytes immat ure granu locyt es Not Available Not Available 12/31/2024 10:17:50 08/23/20 23 08/23/2023 CBC W Auto Diffe renti al panel - Blood neutrophils, absolute count neutr ophil s, absol [place] count Not Available Not Available 12/31/2024 10:17:50 08/23/20 23 08/23/2023 CBC W Auto Diffe renti al panel - Blood lymphocytes, absolute count low lymph ocyte s, absol [place] count Not Available Not Available 12/31/2024 10:17:50 08/23/20 23 08/23/2023 CBC W Auto Diffe renti al panel - Blood monocytes, absolute count monoc ytes, absol [place] count Not Available Not Available 12/31/2024 10:17:50 08/23/20 23 08/23/2023 CBC W Auto Diffe renti al panel - Blood eosinophils, absolute count eosin ophil s, absol [place] count Not Available Not Available 12/31/2024 10:17:50 08/23/20 23 08/23/2023 CBC W Auto Diffe renti al panel - Blood basophils, absolute count basop hils, absol [place] count Not Available Not Available 12/31/2024 10:17:50 08/23/20 23 08/23/2023 CBC W Auto Diffe renti al panel - Blood immature granulocytes ,absolute immat ure granu locyt es,ab solut e Not Available Not Available 12/31/2024 10:17:50 08/23/20 23 08/23/2023 CBC W Auto Diffe renti al panel - Blood nucleated red blood cells nucle ated red blood cells Not Available Not Available 12/31/2024 10:17:50 08/23/20 23 08/23/2023 CBC W Auto Diffe renti al panel - Blood NRBC# NRBC# Not Available Not Availa ble 12/31/2024 10:17:50 09/08/20 23 09/08/2023 Thyro tropi n [Unit s/vol ume] in Serum or Plasm a thyroid-stim ulating hormone thyro id-st imula ting hormo ne Not Available Not Available 12/31/2024 10:17:51 09/08/20 23 09/08/2023 Triio dothy nona e (T3) Free [Mass /volu me] in Serum or Plasm a free T3 free T3 Not Available Not Available 12/31/2024 10:17:51 09/08/20 23 09/08/2023 Thyro xine (T4) free [Mass /volu me] in Serum or Plasm a free T4 free T4 Not Available Not Available 12/31/2024 10:17:51 09/08/20 23 09/08/2023 Magne sium [Mass /volu me] in Serum or Plasm a magnesium magne sium Not Available Not Available 12/31/2024 10:17:51 09/08/20 23 09/08/2023 Compr ehens estrella metab olic 1999 panel - Serum or Plasm a sodium low sodiu m Not Available Not Available 12/31/2024 10:17:51 09/08/20 23 09/08/2023 Compr ehens estrella metab olic 2000 panel - Serum or Plasm a potassium potas sium Not Available Not Available 12/31/2024 10:17:51 09/08/20 23 09/08/2023 Compr ehens estrella metab olic 2000 panel - Serum or Plasm a chloride chlor sal Not Available Not Available 12/31/2024 10:17:51 09/08/20 23 09/08/2023 Compr ehens estrella metab olic 2000 panel - Serum or Plasm a carbon dioxide carbo n dioxi de Not Available Not Available 12/31/2024 10:17:51 09/08/20 23 09/08/2023 Compr ehens estrella metab olic 2000 panel - Serum or Plasm a anion gap low anion gap Not Available Not Available 12/31/2024 10:17:51 09/08/20 23 09/08/2023 Compr ehens estrella metab olic 2000 panel - Serum or Plasm a glucose gluco se Not Available Not Available 12/31/2024 10:17:51 09/08/20 23 09/08/2023 Compr ehens estrella metab olic 2000 panel - Serum or Plasm a BUN BUN Not Available Not Availa ble 12/31/2024 10:17:51 09/08/20 23 09/08/2023 Compr ehens estrella metab olic 2000 panel - Serum or Plasm a creatinine creat inine Not Available Not Available 12/31/2024 10:17:51 09/08/20 23 09/08/2023 Compr ehens estrella metab olic 2000 panel - Serum or Plasm a GFR >60 GFR Not Available Not Availa ble 12/31/2024 10:17:51 09/08/20 23 09/08/2023 Compr ehens estrella metab olic 2000 panel - Serum or Plasm a alkaline phosphatase alkal ine phosp hatas e Not Available Not Available 12/31/2024 10:17:51 09/08/20 23 09/08/2023 Compr ehens estrella metab olic 2000 panel - Serum or Plasm a alanine aminotransfe rase wendy ne amino trans feras e Not Available Not Available 12/31/2024 10:17:51 09/08/20 23 09/08/2023 [facility] 2000 panel - Serum or Plasm a aspartate aminotransfe rase aspar burnette amino trans feras e Not Available Not Available 12/31/2024 10:17:51 09/08/20 23 09/08/2023 [facility] 2000 panel - Serum or Plasm a bilirubin, total bilir ubin, total Not Available Not Available 12/31/2024 10:17:51 09/08/20 23 09/08/2023 Compr ens estrella metab [facility] 2000 panel - Serum or Plasm a calcium calci um Not Available Not Available 12/31/2024 10:17:51 09/08/20 23 09/08/2023 [facility] 2000 panel - Serum or Plasm a total protein total prote in Not Available Not Available 12/31/2024 10:17:51 09/08/20 23 09/08/2023 [facility] 2000 panel - Serum or Plasm a albumin album in Not Available Not Available 12/31/2024 10:17:51 09/08/20 23 09/08/2023 [facility] 2000 panel - Serum or Plasm a globulin globu sophia Not Available Not Available 12/31/2024 10:17:51 09/08/20 23 09/08/2023 [facility] 2000 panel - Serum or Plasm a A/G ratio A/G ratio Not Available Not Available 12/31/2024 10:17:51 09/08/20 23 09/08/2023 CBC W Auto Diffe renti al panel - Blood white blood cells white blood cells Not Available Not Available 12/31/2024 10:17:51 09/08/20 23 09/08/2023 CBC W Auto Diffe renti al panel - Blood red blood cells red blood cells Not Available Not Available 12/31/2024 10:17:51 09/08/20 23 09/08/2023 CBC W Auto Diffe renti al panel - Blood hemoglobin hemog lobin Not Available Not Available 12/31/2024 10:17:51 09/08/20 23 09/08/2023 CBC W Auto Diffe renti al panel - Blood hematocrit hemat ocrit Not Available Not Available 12/31/2024 10:17:51 09/08/20 23 09/08/2023 CBC W Auto Diffe renti al panel - Blood mean red cell volume mean red cell volum e Not Available Not Available 12/31/2024 10:17:51 09/08/20 23 09/08/2023 CBC W Auto Diffe renti al panel - Blood mean red cell hemoglobin mean red cell hemog lobin Not Available Not Available 12/31/2024 10:17:51 09/08/20 23 09/08/2023 CBC W Auto Diffe renti al panel - Blood mean RBC HGB concentratio n mean RBC HGB bernardo ntrat ion Not Available Not Available 12/31/2024 10:17:51 09/08/20 23 09/08/2023 CBC W Auto Diffe renti al panel - Blood red cell distribution width red cell distr ibuti on width Not Available Not Available 12/31/2024 10:17:51 09/08/20 23 09/08/2023 CBC W Auto Diffe renti al panel - Blood platelets plate lets Not Available Not Available 12/31/2024 10:17:51 09/08/20 23 09/08/2023 CBC W Auto Diffe renti al panel - Blood mean platelet volume mean plate let volum e Not Available Not Available 12/31/2024 10:17:51 09/08/20 23 09/08/2023 CBC W Auto Diffe renti al panel - Blood neutrophils neutr ophil s Not Available Not Available 12/31/2024 10:17:51 09/08/20 23 09/08/2023 CBC W Auto Diffe renti al panel - Blood lymphocytes lymph ocyte s Not Available Not Available 12/31/2024 10:17:51 09/08/20 23 09/08/2023 CBC W Auto Diffe renti al panel - Blood monocytes monoc ytes Not Available Not Available 12/31/2024 10:17:51 09/08/20 23 09/08/2023 CBC W Auto Diffe renti al panel - Blood eosinophils eosin ophil s Not Available Not Available 12/31/2024 10:17:51 09/08/20 23 09/08/2023 CBC W Auto Diffe renti al panel - Blood basophils basop hils Not Available Not Available 12/31/2024 10:17:51 09/08/20 23 09/08/2023 CBC W Auto Diffe renti al panel - Blood immature granulocytes immat ure granu locyt es Not Available Not Available 12/31/2024 10:17:51 09/08/20 23 09/08/2023 CBC W Auto Diffe renti al panel - Blood neutrophils, absolute count neutr ophil s, absol [place] count Not Available Not Available 12/31/2024 10:17:51 09/08/20 23 09/08/2023 CBC W Auto Diffe renti al panel - Blood lymphocytes, absolute count lymph ocyte s, absol [place] count Not Available Not Available 12/31/2024 10:17:51 09/08/20 23 09/08/2023 CBC W Auto Diffe renti al panel - Blood monocytes, absolute count monoc ytes, absol [place] count Not Available Not Available 12/31/2024 10:17:51 09/08/20 23 09/08/2023 CBC W Auto Diffe renti al panel - Blood eosinophils, absolute count eosin ophil s, absol chevak count Not Available Not Available 12/31/2024 10:17:51 09/08/20 23 09/08/2023 CBC W Auto Diffe renti al panel - Blood basophils, absolute count basop hils, absol chevak count Not Available Not Available 12/31/2024 10:17:51 09/08/20 23 09/08/2023 CBC W Auto Diffe renti al panel - Blood immature granulocytes ,absolute immat ure granu locyt es,ab solut e Not Available Not Available 12/31/2024 10:17:51 09/08/20 23 09/08/2023 CBC W Auto Diffe renti al panel - Blood nucleated red blood cells nucle ated red blood cells Not Available Not Available 12/31/2024 10:17:51 09/08/20 23 09/08/2023 CBC W Auto Diffe renti al panel - Blood NRBC# NRBC# Not Available Not Availa ble 12/31/2024 10:17:51 12/03/19 25 12/04/2024 CMP14 glucose 93 mg/dL 70-99 Not Availabl e [facility] ([facility]) [address] [facility] [place], [address], 12/04/2024 07:08:40 12/03/19 25 12/04/2024 CMP14 BUN 17 mg/dL 8-27 Not Available [facility] ([facility]) [address] [facility] [place], [address], 12/04/2024 07:08:40 12/03/19 25 12/04/2024 CMP14 creatinine 0.74 mg/dL 0.57-1 .00 Not Available [facility] ([facility]) [address] [facility] [place], [address], 12/04/2024 07:08:40 12/03/19 25 12/04/2024 CMP14 eGFR 86 mL/mi n/1.7 3 >59 Not Available [facility] ([facility]) [address] [facility] [place], [address], 12/04/2024 07:08:40 12/03/19 25 12/04/2024 CMP14 BUN/creatini ne ratio 23 12-28 Not Available [facility] ([facility]) [address] [facility] [place], [address], 12/04/2024 07:08:40 12/03/19 25 12/04/2024 CMP14 sodium 144 mmol/ L 134-14 4 Not Available [facility] ([facility]) [address] [facility] [place], [address], 12/04/2024 07:08:40 12/03/19 25 12/04/2024 CMP14 potassium 5.3 mmol/ L 3.5-5. 2 above high normal Not Available [facility] ([facility]) [address] [facility] [place], [address], 12/04/2024 07:08:40 12/03/19 25 12/04/2024 CMP14 chloride 107 mmol/ L 96-106 above high normal Not Available [facility] ([facility]) [address] [facility] [place], [address], 12/04/2024 07:08:40 12/03/19 25 12/04/2024 CMP14 carbon dioxide, total 26 mmol/ L 20-29 Not Available [facility] ([facility]) [address] [facility] [place], [address], 12/04/2024 07:08:40 12/03/19 25 12/04/2024 CMP14 calcium 9.4 mg/dL 8.7-10 .3 Not Available [facility] ([facility]) [address] [facility] [place], [address], 12/04/2024 07:08:40 12/03/19 25 12/04/2024 CMP14 protein, total 6.5 g/dL 6.0-8. 5 Not Available [facility] ([facility]) [address] [facility] [place], [address], 12/04/2024 07:08:40 12/03/19 25 12/04/2024 CMP14 albumin 4.2 g/dL 3.8-4. 8 Not Available [facility] ([facility]) [address] [facility] [place], [address], 12/04/2024 07:08:40 12/03/19 25 12/04/2024 CMP14 globulin, total 2.3 g/dL 1.5-4. 5 Not Available [facility] ([facility]) [address] [facility] [place], [address], 12/04/2024 07:08:40 12/03/19 25 12/04/2024 CMP14 bilirubin, total 0.4 mg/dL 0.0-1. 2 Not Available [facility] ([facility]) [address] [place], [address], 12/04/2024 07:08:40 12/03/19 25 12/04/2024 CMP14 alkaline phosphatase 78 IU/L 44-121 Not Available [facility] ([facility]) [address] [place], [address], 12/04/2024 07:08:40 12/03/19 25 12/04/2024 CMP14 AST (SGOT) 20 IU/L 0-40 Not Avail able [facility] ([facility]) [address] [place], [address], 12/04/2024 07:08:40 12/03/19 25 12/04/2024 CMP14 ALT (SGPT) 17 IU/L 0-32 Not Avail able [facility] ([facility]) [address] [place], [address], 12/04/2024 07:08:40 12/03/19 25 12/04/2024 LIPID PANEL cholesterol, total 153 mg/dL 100-19 9 Not Available [facility] ([facility]) [address] [place], [address], 12/04/2024 07:08:42 12/03/19 25 12/04/2024 LIPID PANEL triglyceride s 60 mg/dL 0-149 Not Available [facility] ([facility]) [address] [place], [address], 12/04/2024 07:08:42 12/03/19 25 12/04/2024 LIPID PANEL HDL cholesterol 72 mg/dL >39 Not Available [facility] ([facility]) [address] [place], [address], 12/04/2024 07:08:42 12/03/19 25 12/04/2024 LIPID PANEL VLDL cholesterol federica 12 mg/dL 5-40 Not Available [facility] ([facility]) [address] [place], [address], 12/04/2024 07:08:42 12/03/19 25 12/04/2024 LIPID PANEL LDL chol calc ([facility]) 69 mg/dL 0-99 Not Available [facility] ([facility]) [address] [place], [address], 12/04/2024 07:08:42 12/03/19 25 12/04/2024 MAGNE SIUM magnesium 2.3 mg/dL 1.6-2. 3 Not Available [facility] [facility] [address] [place], [address], 12/04/2024 07:08:43 12/03/19 25 12/04/2024 TRIIO DOTHY NONA E (T3), FREE triiodothyro nine (T3), free 3.0 pg/mL 2.0-4. 4 Not Available [facility] ([facility]) [address] [place], [address], 12/04/2024 07:08:44 12/03/19 25 12/04/2024 T4,FR EE(DI RECT) T4,free(dire ct) 1.16 NG/dL 0.82-1 .77 Not Available [facility] ([facility]) [address] [place], [address], 12/04/2024 07:08:45 12/03/19 25 12/03/2024 CBC, PLATE LET, NO DIFFE RENTI AL WBC 4.3 x10e3 /uL 3.4-10 .8 Not Available [facility] ([facility]) [address] [place], [address], 12/04/2024 07:08:46 12/03/19 25 12/03/2024 CBC, PLATE LET, NO DIFFE RENTI AL RBC 4.43 x10e6 /uL 3.77-5 .28 Not Available [facility] ([facility]) [address] [place], [address], 12/04/2024 07:08:46 12/03/19 25 12/03/2024 CBC, PLATE LET, NO DIFFE RENTI AL hemoglobin 13.6 g/dL 11.1-1 5.9 Not Available [facility] ([facility]) [address] [facility], [place], [address], 12/04/2024 07:08:46 12/03/19 25 12/03/2024 CBC, PLATE LET, NO DIFFE RENTI AL hematocrit 41.4 % 34.0-4 6.6 Not Available [facility] ([facility]) [address] [facility], [place], [address], 12/04/2024 07:08:46 12/03/19 25 12/03/2024 CBC, PLATE LET, NO DIFFE RENTI AL MCV 94 fL 79-97 Not Available [facility] ([facility]) [address] [facility], [place], [address], 12/04/2024 07:08:46 12/03/19 25 12/03/2024 CBC, PLATE LET, NO DIFFE RENTI AL MCH 30.7 pg 26.6-3 3.0 Not Available [facility] ([facility]) [address] [facility], [place], [address], 12/04/2024 07:08:46 12/03/1912/03/2024 CBC, PLATE LET, NO DIFFE RENTI AL MCHC 32.9 g/dL 31.5-3 5.7 Not Available [facility] ([facility]) [address] [facility], [place], [address], 12/04/2024 07:08:46 12/03/19 25 12/03/2024 CBC, PLATE LET, NO DIFFE RENTI AL RDW 11.9 % 11.7-1 5.4 Not Available [facility] ([facility]) [address] [place], [address], 12/04/2024 07:08:46 12/03/19 25 12/03/2024 CBC, PLATE LET, NO DIFFE RENTI AL platelets 224 x10e3 /uL 150-45 0 Not Available [facility] ([facility]) [address] [facility], [place], [address], 12/04/2024 07:08:46 12/03/19 25 12/08/2024 THYRO ID STIMU LATIN G HORMO NE TSH-icma 0.66 uu/mL Refer ence Range : Non-P regna nt Adult 0.450 -4.50 0 Pregn ammon First Trime ster 0.100 -4.00 0 Secon d Trime ster 0.200 -4.00 0 Third Trime ster 0.300 -4.50 0 Not Available [facility] [address] [place], [address], 12/08/2024 17:06:54 11/03/19 21 11/03/2020 DEXA No observ ation record ed. [address] [place], [address], 12/04/2020 14:37:23 11/03/19 21 11/03/2020 MAMMO , scree lupe, digit al, bilat eral No observ ation record ed. [address] [place], [address], 12/04/2020 14:37:23 02/28/20 24 11/11/2023 MAMMO , scree lupe, digit al, bilat eral No observ ation record ed. [email or web address] [facility] [address] [place], [address], 02/29/2024 08:21:27 03/05/20 24 12/31/2022 CT, abdom en + pelvi s, w/o contr ast No observ ation record ed. [email or web address] [facility] Formerly [facility] [address], [place], [address], 03/11/2024 23:08:22 03/28/20 24 03/28/2024 DEXA No observ ation record ed. [facility] [address] [place], [address], 04/03/2024 09:12:15 11/08/19 25 11/11/2023 MAMMO , scree lupe, digit al, bilat eral No observ ation record ed. BARCODE Not Available 2024 17:05:47 01/02/20 25 01/01/2025 XR, chest , 2 view No observ ation record ed. [address] [facility], [place], [address], 01/04/2025 11:12:32 01/02/20 25 01/01/2025 XR, chest , 2 view No observ ation record ed. [address] [facility], [place], [address], 01/04/2025 11:12:33 02/07/20 25 02/06/2025 imagi ng/di agnos tic resul t No observ ation record ed. [address] [facility], [place], [address], 02/06/2025 17:21:36 02/07/20 25 02/06/2025 imagi ng/di agnos tic resul t No observ ation record ed. [address] [facility], [place], [address], 02/06/2025 17:43:08 Result Notes None recorded. Problems Name Problem SNOMED Code Status Onset Date Resolution Date Notes Provider Name and Address Organization Details Recorded Time History of total hysterectomy 846458039 Active 2019 JOSIAS Givens - [facility] 0 18:32:55 Chronic constipation 258196655 Active 2019 Amandeep orozco [place] - [facility] 0 18:32:58 Essential hypertension 66886812 Active 2023 Sony Plascencia MD Attn: Accountin leesa,[address] [facility], [place], [address], [place] [facility] 4 23:12:03 Chronic insomnia 202060041 Active 2023 Sony Plascencia MD Attn: Ángel leesa,[address] [facility], [place], [address], [place] [facility] 4 23:12:04 Tremor 10292517 Active 2023 Sony Plascencia MD Attn: Ángel leesa,[address] [facility], [place], [address], [place] [facility] 4 23:12:05 Gastroesophage al reflux disease without esophagitis 349891953 Active 2023 Sony Plascencia MD Attn: Ángel landers,[address] [facility] [address], [place], [address], [place] [facility] 4 23:12:06 Osteopenia 795757946 Active 2023 Sony Plascencia MD Attn: Ángel landers,[address] [facility] [address], [place], [address], [place] [facility] 4 17:26:17 Problem Notes None recorded. Procedures Surgical History Date Name Laterality Status Provider Name and Address Organization Details Recorded Time 10/31/19 14 total knee replacement completed Marlen Rodriguez [place] [facility] 01/16/2020 16:24:22 10/31/18 79 hysterectomy completed Marlen Rodriguez [place] [facility] 01/16/2020 16:24:02 Imaging Results Imaging Date Name Status [facility] Details LastModified Time 11/03/2020 DEXA completed [email or web address] [facility] [address] [place], [address], 12/04/2020 14:37:23 11/03/2020 MAMMO, screening, digital, bilateral completed [email or web address] [facility] [address] [place], [address], 12/04/2020 14:37:23 11/11/2023 MAMMO, screening, digital, bilateral completed [address] [place], [address], 02/29/2024 08:21:27 12/31/2022 CT, abdomen + pelvis, w/o contrast completed [address] [facility] [address] [facility] [address], [place], [address], 03/11/2024 23:08:22 03/28/2024 DEXA completed [facility] [address] [place], [address], 04/03/2024 09:12:15 11/11/2023 MAMMO, screening, digital, bilateral completed BARCODE Information not available 11/08/2024 17:05:47 01/01/2025 XR, chest, 2 view completed [address], [address], 01/04/2025 11:12:32 01/01/2025 XR, chest, 2 view completed [address], [address], 01/04/2025 11:12:33 02/06/2025 imaging/diagno stic result active [address], [address], 02/06/2025 17:21:36 02/06/2025 imaging/diagno stic result active [address], [address], 02/06/2025 17:43:08 Procedure Notes None recorded. Medical Equipment None Reported. Allergies No known drug allergies Medications Name Sig Start Date Stop Date Status Note LastModified by Organization Details LastModified Time multivitam in tablet Take 1 tablet(s ) every day by oral route. 2020 active Not Available Not Available Not Avai lable Miralax 17 gram/dose oral powder Take by oral route. active Not Available Not Available No t Available atorvastat in 40 mg tablet TAKE 1 TABLET BY MOUTH DAILY 2024 active Not Available Not Available Not Avai lable primidone 50 mg tablet TAKE 1 TABLET BY MOUTH DAILY DIRECTED active Not Available Not Available No t Available doxycyclin e hyclate 100 mg capsule TAKE 1 CAPSULE BY MOUTH TWICE DAILY FOR 7 DAYS 02/19 completed Not Available Not Available Not Available azithromyc in 250 mg tablet TAKE 2 TABLETS BY MOUTH FOR 1 DAY THEN TAKE 1 TABLET BY MOUTH DAILY FOR 4 DAYS 02/19 completed Not Available Not Available Not Available Errol Low Dose Aspirin 81 mg tablet,del ayed release Take 1 tablet every day by oral route. active Not Available Not Available No t Available amlodipine 5 mg tablet TAKE 1 TABLET BY MOUTH DAILY active Not Available Not Available No t Available estradiol 1 mg tablet TAKE 1 TABLET BY MOUTH DAILY 02/19 completed Not Available Not Available Not Available omeprazole 20 mg capsule,de layed release TAKE 1 CAPSULE BY MOUTH DAILY active Not Available Not Available No t Available zolpidem 5 mg tablet TAKE 1 TABLET BY MOUTH EVERY DAY AT BEDTIME active Not Available Not Available No t Available estradiol 0.5 mg tablet TAKE 1 TABLET BY MOUTH EVERY DAY active Not Available Not Available No t Available zolpidem 10 mg tablet TAKE 1 TABLET AT BEDTIME NEEDED 02/19 completed pt not taking 10 mg, taking 5 mg Not Available Not Available Not Available methylpred nisolone 4 mg tablets in a dose pack FOLLOW PACKAGE DIRECTIO NS 02/19 completed Not Available Not Available Not Available propranolo l 20 mg tablet TAKE 1 TABLET BY MOUTH TWICE DAILY active Not Available Not Available No t Available fluticason e propionate 50 mcg/actuat ion nasal spray,susp ension SHAKE LQ AND U 2 SPRAYS IEN QD PRN active Not Available Not Available No t Available amoxicilli n 875 mg-potassi um clavulanat e 125 mg tablet TAKE 1 TABLET BY MOUTH EVERY 12 HOURS FOR 7 DAYS 02/04 completed Not Available Not Available Not Available ciprofloxa sil 0.3 %-dexameth asone 0.1 % ear drops,susp ension SHAKE LIQUID AND INSTILL 4 DROPS TO AFFECTED EAR TWICE DAILY FOR 7 DAYS active Not Available Not Available No t Available magnesium take 833mg by mouth daily active Not Available Not Available No t Available Zyrtec active Not Available Not Availa ble Not Available calcium 600 mg (as carbonate) -vitamin D3 10 mcg (400 unit) tablet TK 1 T PO BID active Not Available Not Available No t Available Linzess 290 mcg capsule Take 1 capsule( s) every day by oral route in the morning for 90 days. 02/19 completed Not Available Not Available Not Available Fluzone High-Dose Quad (PF) 240 mcg/0.7 mL IM syringe TO BE ADMINIST ERED BY PHARMACI ST FOR IMMUNIZA TION 02/19 completed Not Available Not Available Not Available Vitals Date Recorded Body height Body mass index (BMI) Body weight Systolic blood pressure Diastolic blood pressure Provider Name and Address Organization Details Last Updated DateTime 01/16/2020 165.1 cm 26.1 kg/m2 25039 g 112 mm[Hg] 76 mm[Hg] Marlen Rodriguez MA [facility] 0 16:29:12 Date Recorded Body height Body mass index (BMI) Body weight Heart rate Oxygen saturation Oxygen saturation in Arterial blood by Pulse oximetry Systolic blood pressure Diastolic blood pressure Provider Name and Address Organization Details Last Updated DateTime 4 165.1 cm 24 kg/m2 88988.3 g 62 /min 96 % 96 % 118 mm[Hg] 82 mm[Hg] ALICIA Reese [facility] 4 14:25:25 Date Recorded Body height Body mass index (BMI) Body weight Body temperature Heart rate Pain severity - 0-10 verbal numeric rating [Score] - Reported Oxygen saturation Oxygen saturation in Arterial blood by Pulse oximetry Systolic blood pressure Diastolic blood pressure Provider Name and Address Organization Details Last Updated DateTime 4 165.1 cm 23.8 kg/m2 17519.7 1 g 98.3 [degF] 58 /min 0 97 % 97 % 112 mm[Hg] 74 mm[Hg] Aide Mensah [facility] 4 11:59:37 Date Recorded Body height Body mass index (BMI) Body weight Heart rate Oxygen saturation Oxygen saturation in Arterial blood by Pulse oximetry Systolic blood pressure Diastolic blood pressure Provider Name and Address Organization Details Last Updated DateTime 4 165.1 cm 23.3 kg/m2 84478.9 3 g 60 /min 98 % 98 % 114 mm[Hg] 68 mm[Hg] Margaret Fang MA [facility] 4 11:37:36 Date Recorded Body height Body mass index (BMI) Body weight Heart rate Oxygen saturation Oxygen saturation in Arterial blood by Pulse oximetry Systolic blood pressure Diastolic blood pressure Provider Name and Address Organization Details Last Updated DateTime 5 165.1 cm 23.1 kg/m2 43289.9 8 g 58 /min 98 % 98 % 118 mm[Hg] 70 mm[Hg] Margaret Fang MA [facility] 5 11:32:29 Social History Question Answer Notes LastModified by Organizat ion Details LastModified Time Tobacco Smoking Status Never Smoker Marlen Rodriguez MA [facility] 01/16/2020 16:21:44 Do You Have An Advance Directive? No Information not available 01/16/2020 What Is Your Level Of Alcohol Consumption? Occasional Wine 3x Per Week Information not available 01/16/2020 Are You Blind Or Do You Have Difficulty Seeing? Yes Trifocals Information not available 02/27/2024 Is Blood Transfusion Acceptable In An Emergency? Yes Information not available 01/16/2020 What Is Your Level Of Caffeine Consumption? Moderate Coffee Daily Information not available 01/16/2020 How Much Tobacco Do You Chew? None Information not available 01/16/2020 In The 14 Days Before Symptom Onset, Have You Had Close Contact With A Laboratory-confi rmed COVID-19 While That Case Was Ill? No Information not available 06/25/2024 In The 14 Days Before Symptom Onset, Have You Had Close Contact With A Person Who Is Under Investigation For COVID-19 While That Person Was Ill? No Information not available 06/25/2024 Have You Been To An Area Known To Be High Risk For COVID-19? No Information not available 06/25/2024 Are You Currently Employed? No Information not available 02/27/2024 Are You Deaf Or Do You Have Serious Difficulty Hearing? Yes Hearing Aid In Left Ear Information not available 02/27/2024 What Type Of Diet Are You Following? REGULAR Low Carb Information not available 02/27/2024 Which Illicit Or Recreational Drugs Have You Used? Denies Information not available 01/16/2020 Do You Or Have You Ever Used E-cigarettes Or Vape? Never Used Electronic Cigarettes Information not available 01/16/2020 Education 12 Information no t available 01/16/2020 What Is The Highest Grade Or Level Of School You Have Completed Or The Highest Degree You Have Received? [id number] Information not available 02/27/2024 What Is Your Occupation? Retired Information not available 02/27/2024 Are There Any Guns Present In Your Home? No Information not available 02/27/2024 Live Alone Or With Others? With Others Information not available 01/16/2020 In The Past 7 Days, How Many Days Did You Exercise? 0 Active Lifestyle Information not available 02/27/2024 In The Past 7 Days, How Much Pain Have You [place]? Some Lower Back Information not available 02/27/2024 In General, Would You Say You Health Is: Very Good Information not available 02/27/2024 How Would You Describe The Condition Of Your Mouth And Teeth- Including False Teeth Or Dentures? Very Good Information not available 02/27/2024 Each Night, How Many Hours Of Sleep Do You Get? 5 Information not available 02/27/2024 Has Anyone Ever Told You That You Snore? No Information not available 02/27/2024 In The Past 7 Days, How Often Have You [place] Sleepy In The Daytime? Sometimes Information not available 02/27/2024 On They Days When You Drank Alcohol, How Often Did You Have 4 Or More Drinks At A Time? Never Information not available 02/27/2024 # Alcohol Drinks Per Week 3 Information not available 02/27/2024 What Was The Date Of Your Most Recent Tobacco Screening? 12/06/2024 Information not available 12/06/2024 How Many Children Do You Have? 2 Information not available 01/16/2020 Performs Monthly Self-breast Exam? Yes Information not available 01/16/2020 Do You Use Protection During Sex? No Information not available 01/16/2020 What Is Your Relationship Status? Information not available 01/16/2020 Do You Use Your Seat Belt Or Car Seat Routinely? Yes Information not available 02/27/2024 Seat Belts Used Routinely Yes Information not available 01/16/2020 Are You Sexually Active? Yes Information not available 01/16/2020 Do You Have Smoke And Carbon Monoxide Detectors In Your Home? Yes Information not available 02/27/2024 Do You Or Have You Ever Used Smokeless Tobacco? Never Used Smokeless Tobacco Information not available 01/16/2020 How Much Tobacco Do You Smoke? No Information not available 01/16/2020 Do You Feel Stressed (tense, Restless, Nervous, Or Anxious, Or Unable To Sleep At Night)? [id number] Information not available 02/27/2024 Do You Use Any Illicit Or Recreational Drugs? No Information not available 02/27/2024 Do You Use Sunscreen Routinely? No Information not available 02/27/2024 Has Tobacco Cessation Counseling Been Provided? No Information not available 02/27/2024 How Many Years Have You Smoked Tobacco? 0 [email or web address] Information not available 01/16/2020 Do You Or Have You Ever Used Any Other Forms Of Tobacco Or Nicotine? No Information not available 02/27/2024 Sex: Female Functional Status Question Answer Note LastModified by Organizat ion Details LastModified Time Are you able to care for yourself? Yes Information not available 02/27/2024 What is your exercise level? Occasional active lifestyle Information not available 02/27/2024 Mental Status None recorded. Family History Relationship Description Onset Age of this Age Resolved Age Notes LastModified by Organization Details LastModified Time Sister Malignant tumor of lung [email or web address] Not available 01/15 16:20:54 Sister Malignant tumor of breast [email or web address] Not available 01/15 16:21:07 Mother Heart disease [email or web address] Not available 01/15 16:21:32 Mother Hypercholest erolemia [email or web address] Not available 01/30 14:26:35 Brother Malignant tumor of lung [email or web address] Not available 01/30 14:26:15 Notes:No new family history as of 06-25-2024, me/rma Medical History Condition Response Coronary Artery Disease N Other N Atrial Fibrillation N High Blood Pressure Y Breast Cancer N Kidney or Bladder Problems N Thyroid Problems N Blood Clots N COPD N Depression Y Lung Disease N GI Problems Y Acne N Breast Problem N Skin Problems N Eating Disorder N Anemia N Anesthesia Complications N Heart Attack (TN) N Headaches/Migraines N Anxiety Disorder N Diabetes N Ovarian Cancer N Muscle, Joint, or Bone Problems N Blood Transfusions N Seizures/Epilepsy N Infertility N Polyps N Acid Reflux (GERD) Y Cancer N Stroke N Abuse/Domestic Violence N Asthma N Allergies N High Cholesterol Y Hepatitis N Liver Disease N Heart Disease N Headaches N Pre-Eclampsia N Heart Failure N Osteoporosis N Gynecological History Statement/Question Response Abnormal Pap N On BCP's at Conception? N STIs/STDs N HPV Vaccine N Age at Menarche 11 Current Control Method Menopause Age at First Child 16 If Post Menopausal, Age at Menopause Sexually Active? Y Menses Monthly N Sexual Problems? N LMP Unknown Desired Control Method N/A Obstetrics History GPAL:G 1 P 2 0 0 2 Type Value Multiple Births 1 Full Term 2 Induced 0 Spontaneous 0 Premature 0 Living 2 Ectopics 0 Total 1 Immunizations Vaccine Type Date Status Note Provider Nam e and Address Organization Details Recorded Time Influenza, split virus, quadrivalent, preservative 0 completed Kandice Caceres [place] [facility] 02/20/2024 14:11:51 Influenza, split virus, quadrivalent, preservative 7 completed SINA ReeseA [place] [facility] 02/20/2024 14:11:51 zoster recombinant 1 completed [place]IA [place] [facility] 02/20/2024 14:11:51 Influenza, high-dose, quadrivalent, PF 2 inderjit Caceres [place] [facility] 02/20/2024 14:11:51 Influenza, adjuvanted, quadrivalent, PF 3 completed [place] [facility] 02/20/2024 14:11:51 Influenza, adjuvanted, quadrivalent, PF 1 completed Kandice Caceres [place] [facility] 02/20/2024 14:11:51 COVID-19, mRNA, LNP-S, PF, 100 mcg/0.5mL dose or 50 mcg/0.25mL dose 1 completed Kandice Caceres [place] [facility] 02/20/2024 14:11:51 COVID-19, mRNA, LNP-S, PF, 100 mcg/0.5mL dose or 50 mcg/0.25mL dose 1 completed Kandice Caceres [place] [facility] 02/20/2024 14:11:51 COVID-19, mRNA, LNP-S, PF, 30 mcg/0.3 mL dose 1 completed Kandice Caceres RMA [place] [facility] 02/20/2024 14:11:51 COVID-19, mRNA, LNP-S, PF, 30 mcg/0.3 mL dose, jennifer-sucrose 2 completed Kandice Caceres [place] [facility] 02/20/2024 14:11:51 COVID-19, mRNA, LNP-S, bivalent, PF, 30 mcg/0.3 mL dose 2 completed Kandice Caceres [place] [facility] 02/20/2024 14:11:51 RSV, recombinant, protein subunit RSVpreF, adjuvant reconstituted, 0.5 mL, PF 3 completed Kandice Cace[place] [facility] 02/20/2024 14:11:51 COVID-19, mRNA, LNP-S, PF, jennifer-sucrose, 30 mcg/0.3 mL 3 completed Kandice Cace[place] [facility] 02/20/2024 14:11:51 pneumococcal polysaccharide PPV23 1 completed Kandice [place]ace[place] [facility] 02/20/2024 14:11:52 pneumococcal polysaccharide PPV23 1 completed Kandice Caceres, [place] [facility] 02/20/2024 14:11:52 influenza, unspecified formulation 2 completed Kandice Caceres, [place] [facility] 02/20/2024 14:11:52 Pneumococcal conjugate PCV 13 9 completed Kandice Caceres, [place] [facility] 02/20/2024 14:11:52 zoster live 6 completed Kandice Caceres, [place] [facility] 02/20/2024 14:11:52 Influenza, split virus, trivalent, preservative 3 completed Kandice Caceres, [place] [facility] 02/20/2024 14:11:52 Influenza, split virus, trivalent, preservative 3 completed Kandice Caceres, [place] [facility] 02/20/2024 14:11:52 Influenza, split virus, trivalent, PF 5 completed Kandice Caceres, [place] [facility] 02/20/2024 14:11:52 Novel [id number] 9 completed Kandice Caceres, [place] [facility] 02/20/2024 14:11:52 Influenza, split virus, quadrivalent, PF 7 completed Kandice Caceres, [place] [facility] 02/20/2024 14:11:52 Past Encounters Encounter ID Performer Location Encounter Start Date Encounter Closed Date Diagnosis/Indication Diagnosis SNOMED-CT Code Diagnosis ICD10 Code Diagnosis Note [id number] SHADI Magana ([employer]) [address] [place] [address] 01/16/2020 15:46:24 01/17/2020 09:29:04 Gynecologic examination 51503231 Z01.419 Z11.51 Screening for malignant neoplasm of breast 301138903 Z12.39 mammogram done in october 2019 per patient Chronic constipation 236 472720 K59.09 History of total hysterectomy 762012208 Z90.114 [id number] Sony Plascencia MD [facility] [place] [address] [place] [address] 02/20/2024 14:03:09 02/20/2024 15:12:20 Essential hypertension 29093804 I10 Chronic insomnia 9364926 04 F51.04 Tremor 63865881 R25.1 Gastroesop hageal reflux disease without esophagitis 307441518 K21.9 [id number] Sony Plascencia MD [facility] [place] [address] [place] [address] 02/27/2024 11:38:15 02/27/2024 12:32:40 Adult health examination 228990396 Z00.00 Health Risk Assessment collected and reviewed [id number] Sony Plascencia MD [facility] [place] [address] [place] [address] 06/25/2024 11:15:08 06/25/2024 12:10:35 Essential hypertension 67697684 I10 Gastroesop hageal reflux disease without esophagitis 587593590 K21.9 Chronic constipation 236 209179 K59.09 Tremor 29643924 R25.1 Chronic insomnia 2925036 04 F51.04 [id number] Sony Plascencia MD [facility] [place] [address] [place] [address] 12/06/2024 11:00:04 12/06/2024 12:10:37 Body mass index 20-24 - normal 939064674 Z68.23 Essential hypertension 76541643 I10 Gastroesop hageal reflux disease without esophagitis 885710411 K21.9 Chronic insomnia 6429100 04 F51.04 Chronic constipation 236 879799 K59.09 Tremor 79520484 R25.1 Health Concerns Section Related Observation LastModified by Organization Detai ls LastModified Time None Recorded Concern Status LastModified by Organization Details LastModified Time None Recorded Advance Directives Directive N: Payers Encounter Date Sequence Insurance Name Policy Number Policy Bee Covered Member ID Bee Member ID Guarantor Name 02/20/2024 1 [facility] (MEDICARE REPLACEMENT/A DVANTAGE - HMO) [id number] Christelle Flower [id number] Christelle Flower 02/27/2024 1 [facility] (MEDICARE REPLACEMENT/A DVANTAGE - HMO) [id number] Christelle Kennedy Flower [id number] Christelle Kennedy Flower 06/25/2024 1 [facility] (MEDICARE REPLACEMENT/A DVANTAGE - HMO) [id number] Christelle C Flower [id number] Christelle C Flower 12/06/2024 1 [facility] (MEDICARE REPLACEMENT/A DVANTAGE - HMO) [id number] Christelle Kennedy Flower [id number] Christelle Kennedy Flower Notes Date Note Type Note Provider Name and Address Organization Details Recorded Time 01/16/2020 text/html Annual [employer] Post-MenopausalRepor alessandra bypatient.Menopausal Symptoms:no menopausal symptoms; normal vaginal lubrication Vaginal Bleeding:history of menopause having occurred; no history of post menopausal bleeding Urinary Symptoms:no hematuria; no incontinence; no nocturia; no urinary frequency Vulva:no genital lesion; no vulvar atrophy Vagina:normal vaginal discharge; no vaginal atrophy Breast:no breast lump; no nipple discharge; no breast pain Sexual Complaints:no sexual complaints Psychological Symptoms:no depression; no anxiety Preventive Measures:encourage self breast examination; encourage regular exercise 64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 here cbe SHADI [place], [place] - [facility] 01/17/2020 14:41:46 02/20/2024 text/html 68-year-old with hypertension chronic constipation GERD tremor and some left leg numbness she has been evaluated by orthopedic surgery they are doing a more advanced scan of her back there was something that they saw but I do not think that it was once responsible for her symptoms tremors been about the same her high blood pressure has been under control constipation chronic and has been fully worked up her GERD has been stable she is a little bit more unstable on her gait stemming from the problems with her legs Sony Plascencia MD Attn: [address] [place], [address], [facility] 02/20/2024 23:14:03 02/27/2024 text/html TERRELL 2Reported bypatient.Diet and Nutrition:healthy diet Fracture Risk:no sudden unexplained fractures;history of fractures(childhood) Concentration and Memory:no decreased concentrating ability; no memory lapses or loss; does not forget words Speech/Motor difficulties:no speech difficulties; no difficulty expressing formulated concepts; no difficulty with fine manipulative tasks; no difficulty writing/copying; no slowed reaction time; does not knock things over when trying to pick them up Hearing:wears hearing aids Vision:worse both distance and near(Patient wears trifocals.);increase d sensitivity to glare;difficulty seeing in bright light Activities of Daily Living:able to bathe with limited or no assistance; able to contol urination and bowels; able to dress with limited or no assistance; able to feed self with limited or no assistance; able to get out of chair or bed with limited or no assistance; able to groom with limited or no assistance; able to toilet with limited or no assistance Instrumental Activities of Daily Living:able to do house work with limited or no assistance; able to grocery shop with limited or no assistance; able to manage medications with limited or no assistance; able to manage money with limited or no assistance; able to prepare meals with limited or no assistance; able to use the phone with limited or no assistance Falls Risk Assessment:no frequent falls while walking; no fall in the past year; no fall since last visit; no dizziness/vertigo;fe ar of falling Home Safety:no unsafe noemi hazzards; no unsafe stairs; working smoke/CO detectors; practicing 'safer sex'; no fire arms; has hand bars in the bathroom/shower; good lighting in the home Sony Plascencia MD Attn: [address] [place], [address], [facility] 03/03/2024 21:21:15 06/25/2024 text/html tremor stable constipation about the same. GERD no nausea no vomiting. Hypertension no headache no dizziness at this time. Insomnia still bothers her but she is trying to titrate down on the zolpidem hyperlipidemia does try to follow a low-fat diet Sony Plascencia MD Attn: [address] [place], [address], [facility] 07/07/2024 17:51:39 12/06/2024 text/html tremor stable constipation about the same. GERD no nausea no vomiting. Hypertension no headache no dizziness at this time. Insomnia still bothers her but she is trying to titrate down on the zolpidem hyperlipidemia does try to follow a low-fat diet Sony Plascencia MD Attn: [address] , [place], [address], [place] [facility] 12/06/2024 22:51:28 OBGyn Episode Ob Episode Information Episode Created Date Number of Fetuses Patient Bloodtype Patient rh Status Prepregnancy Weight lbs Domestic Partner Domestic Partner Phone Father Name [employer] Fireman Status 01/16/20 20 2 CLOSED Fetus Data First Name Last Name Admitted to NICU Weight (g) Sex Living Outcome Pediatric Complications Fetus ID Race Codes Race Delivery Type 3600.15 [id number] F Full Term [id number] Vaginal 2948.34 8 F Full Term [id number] Vaginal Lon Calculation Initial Lon Date Initial Exam Date Initial Exam Provider Initial Ultrasound Date Last Menstrual Period Date Ultra Sound Weeks Gestation 0 Eighteen To Twenty Week Lon Update Ultra Sound Date Fundal Height At Umbil Quickening Date Ultra Sound Latest Weeks Gestation Final Lon Confirmed By Final Lon Confirmed Date Final Lon Date Ultra Sound Latest Days Gestation 0 0 Menstrual History Last Menstrual Date Menses Monthly On Bcp Conception Prior Menses Frequency Hcg Plus Date Menarche Onset Age Delivery Information Delivery Date Delivery Type Labor Anesthesia Weeks Gestation Incision Type Labor Labor Length Hrs Delivered By Post Complications Tubal Sterilization Discharge Date Comments 1 None 40 false Discharge Information Feeding Method Contraceptive Method Maternal HG B and HCT Levels
--- OUTSIDE RECORDS SUMMARY | 2025-02-06 16:55 | XMS_ITS | Data Portability ---
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 Name Role Phone SONY PLASCENCIA Primary Care Provider Unavailabl e Assessment Encounter Date Assessment Date Assessment LastModified by Organization Details LastModified Time 08/23/2023 08/23/2023 Decrease Ambien to 5 continue current therapy otherwise blood work has been ordered she will follow-up in 4 months [email or web address] Not available 08/23/2023 22:41:59 09/08/2023 09/08/2023 Her EKG shows a sinus bradycardia with occasional junctional escape beat Stop propranolol Monitor blood pressure daily Holter monitor for 2 weeks thyroid studies CBC CMP magnesium X-ray left knee LUL legs Follow-up 11 14 Any presyncope syncope dizziness chest pain problems breathing ER [email or web address] Not available 09/09/2023 13:06:01 09/13/2023 09/13/2023 ABIs were negati ve will head amlodipine 5 mg daily see me in a couple weeks continue to get her testing done MRI lumbar spine [email or web address] Not available 09/13/2023 22:37:20 09/29/2023 09/29/2023 Will await the M RI blood pressure is holding fine off of the propranolol does not seem to have any rebound symptoms she will let me know in a week how she is doing she will call us after the MRI so we can make some further recommendations on what to do about the numbness in her leg. I have also asked her to call her neurologist about the numbness in her leg Not available 09/30/2023 18:23:27 Plan of Treatment Reminders Order Date Submit Date Provider Last Modified By Organization Details Last Modified Time Details Appointments None recorded. Lab TSH, serum or plasma 2022 023 [email or web address] Not available 3 11:12:49 T4, free, serum 2022 023 [email or web address] Not available 3 11:12:49 T3, free, serum or plasma 2022 023 [email or web address] Not available 3 11:12:49 CBC w/ auto diff 2022 023 [email or web address] Not available 3 11:12:49 CMP, serum or plasma 2022 023 [email or web address] Not available 3 11:12:49 magnesium, serum or plasma 2022 023 [email or web address] Not available 3 11:12:49 CBC w/ auto diff 2022 023 MIKE Not available 3 19:09:26 lipid panel, serum 2022 023 MIKE Not available 3 20:04:02 CMP, serum or plasma 2022 023 [email or web address] Not available 3 20:03:52 Referral None recorded. Procedures cerumen removal (PROC) 2024 025 MIKE Grijalva MD, [address], [facility] [address], [place], [address], 5 04:06:26 Surgeries None recorded. Imaging MRI, lumbar spine, w/o contrast 2022 023 MIKE [facility], [facility] , [address], [place], [address], 3 16:56:17 XR, knee 2022 023 [facility] ([facility]), [address] [place], [address], 3 16:50:32 holter monitor - 2wk holter 2022 023 [facility], [address] [place] [address] [address], [place], [address], 3 14:12:33 Medication Orders Ciprodex 0.3 %-0.1 % ear drops,suspe nsion 2024 025 MIKE [facility], [address], [facility] [address], [place], [place], [id number], 5 05:20:28 amlodipine 5 mg tablet 2022 023 [email or web address] [id number], [address], [place], [place], [id number], 3 21:25:42 Medrol (Warren) 4 mg tablets in a dose pack 2022 023 [email or web address] [facility] #[id number], [address], [place], [place], [id number], 3 14:43:14 Patient TargetsNo targets recorded. Patient Instructions Encounter Date Encounter Id Patient Instructions Last Modified By Organization Details Last Modified Time 09/08/2023 [id number] (LUL) ankle brachial index* MIKE Not available 09/09/2023 14:56:36 11/01/2024 [id number] after removal of cerumen to the affected ear, otitis media present. She will use Ciprodex twice a day for 7 days for antimicrobial coverage. If symptoms continue to persist or worsen after completion of medication, returned to the office for re-evaluation. [email or web address] Not available 11/01/2024 12:45:25 Reason for Referral None Reported. Results Created Date Observation Date Name Description Value Unit Range Abnormal Flag Note LastModifiedBy Organization Detail LastModifiedTime 08/23/20 23 08/23/2023 CBC/C OMPLE TE BLD COUNT W/DIF F white blood cells 4.5 x10'3 /uL 4.2-[address] [facility] (Lab) [address] [place], [address], 08/23/2023 19:09:26 08/23/2008/23/2023 CBC/C OMPLE TE BLD COUNT W/DIF F red blood cells 4.31 x10'6 /uL 3.80-[address] [facility] (Lab) [address] [place], [address], 08/23/2023 19:09:26 08/23/2008/23/2023 CBC/C OMPLE TE BLD COUNT W/DIF F hemoglobin 13.5 g/dL 12.0-[address] [facility] (Lab) [address] [place], [address], 08/23/2023 19:09:26 08/23/2008/23/2023 CBC/C OMPLE TE BLD COUNT W/DIF F hematocrit 42.5 % 35.7-[address] [facility] (Lab) [address] [place], [address], 08/23/2023 19:09:26 08/23/2008/23/2023 CBC/C OMPLE TE BLD COUNT W/DIF F mean red cell volume 98.6 fL 82.0-[address] [facility] (Lab) [address] [place], [address], 08/23/2023 19:09:26 08/23/20 23 08/23/2023 CBC/C OMPLE TE BLD COUNT W/DIF F mean red cell hemoglobin 31.3 pg 27.0-[address] [facility] (Lab) [address] [place], [address], 08/23/2023 19:09:26 08/23/20 23 08/23/2023 CBC/C OMPLE TE BLD COUNT W/DIF F mean RBC HGB concentratio n 31.8 g/dL 31.0-3 6.0 Not Available [facility] (Lab) [address] [place], [address], 08/23/2023 19:09:26 08/23/20 23 08/23/2023 CBC/C OMPLE TE BLD COUNT W/DIF F red cell distribution width 12.9 % 11.8-1 5.5 Not Available [facility] (Lab) [address] [place], [address], 08/23/2023 19:09:26 08/23/2008/23/2023 CBC/C OMPLE TE BLD COUNT W/DIF F platelets 201 x10'3 /uL 150-[address] [facility] (Lab) [address] [place], [address], 08/23/2023 19:09:26 08/23/2008/23/2023 CBC/C OMPLE TE BLD COUNT W/DIF F mean platelet volume 12.3 fL 9.0-[address] [facility] (Lab) [address] [place], [address], 08/23/2023 19:09:26 08/23/2008/23/2023 CBC/C OMPLE TE BLD COUNT W/DIF F neutrophils 66.0 % 39.0-[address] [facility] (Lab) [address] [place], [address], 08/23/2023 19:09:26 08/23/2008/23/2023 CBC/C OMPLE TE BLD COUNT W/DIF F lymphocytes 21.6 % 16.0-[address] [facility] (Lab) [address] [place], [address], 08/23/2023 19:09:26 08/23/20 23 08/23/2023 CBC/C OMPLE TE BLD COUNT W/DIF F monocytes 9.5 % 5.0-12 .0 Not Available [facility] (Lab) [address] [place], [address], 08/23/2023 19:09:26 08/23/20 23 08/23/2023 CBC/C OMPLE TE BLD COUNT W/DIF F eosinophils 2.2 % 1.0-7. 0 Not Available [facility] (Lab) [address] [place], [address], 08/23/2023 19:09:26 08/23/2008/23/2023 CBC/C OMPLE TE BLD COUNT W/DIF F basophils 0.7 % 0.0-2. 0 Not Available [facility] (Lab) [address] [place], [address], 08/23/2023 19:09:26 08/23/2008/23/2023 CBC/C OMPLE TE BLD COUNT W/DIF F immature granulocytes 0.0 % 0.00-0 .50 Not Available [facility] (Lab) [address] [place], [address], 08/23/2023 19:09:26 08/23/20 23 08/23/2023 CBC/C OMPLE TE BLD COUNT W/DIF F neutrophils, absolute count 2.99 x10'3 /uL 1.5-8. [address] [facility] (Lab) [address] [place], [address], 08/23/2023 19:09:26 08/23/20 23 08/23/2023 CBC/C OMPLE TE BLD COUNT W/DIF F lymphocytes, absolute count 0.98 x10'3 /uL 1.07-3 [address] [facility] (Lab) [address] [place], [address], 08/23/2023 19:09:26 10/2408/23/2023 CBC/C OMPLE TE BLD COUNT W/DIF F monocytes, absolute count 0.43 x10'3 /uL 0.29-[address] [facility] (Lab) [address] [place], [address], 08/23/2023 19:09:26 08/23/20 23 08/23/2023 CBC/C OMPLE TE BLD COUNT W/DIF F eosinophils, absolute count 0.10 x10'3 /uL 0.02-[address] [facility] (Lab) [address] [place], [address], 08/23/2023 19:09:26 08/23/2008/23/2023 CBC/C OMPLE TE BLD COUNT W/DIF F basophils, absolute count 0.03 x10'3 /uL 0.01-[address] [facility] (Lab) [address] [place], [address], 08/23/2023 19:09:26 08/23/20 23 08/23/2023 CBC/C OMPLE TE BLD COUNT W/DIF F immature granulocytes ,absolute 0.00 x10'3 /uL 0.00-[address] [facility] (Lab) [address] [place], [address], 08/23/2023 19:09:26 08/23/2008/23/2023 CBC/C OMPLE TE BLD COUNT W/DIF F nucleated red blood cells 0.0 % -0 Not Available [facility] (Lab) [address] [place], [address], 08/23/2023 19:09:26 08/23/2008/23/2023 CBC/C OMPLE TE BLD COUNT W/DIF F NRBC# 0.00 x10'3 /uL Not Available [facility] (Lab) [address] [place], [address], 08/23/2023 19:09:26 08/23/20 23 08/23/2023 COMPR EHENS LUCRETIA METAB OLIC PANEL sodium 136 mmol/ L 137-[address] [facility] (Lab) [address] [place], [address], 08/23/2023 20:03:52 08/23/2008/23/2023 COMPR EHENS LUCRETIA METAB OLIC PANEL potassium 3.9 mmol/ L 3.5-5. 1 Not Available [facility] (Lab) [address] [place], [address], 08/23/2023 20:03:52 08/23/2008/23/2023 COMPR EHENS LUCRETIA METAB OLIC PANEL chloride 103 mmol/ L 98-[address] [facility] (Lab) [address] [place], [address], 08/23/2023 20:03:52 08/23/20 23 08/23/2023 COMPR EHENS LUCRETIA METAB OLIC PANEL carbon dioxide 32 mmol/ L 22-30 high Not Available [facility] (Lab) [address] [place], [address], 08/23/2023 20:03:52 08/23/20 23 08/23/2023 COMPR EHENS LUCRETIA METAB OLIC PANEL anion gap 4.9 mmol/ L 14-[address] [facility] (Lab) [address] [place], [address], 08/23/2023 20:03:52 08/23/20 23 08/23/2023 COMPR EHENS LUCRETIA METAB OLIC PANEL glucose 94 mg/dL 70-[address] [facility] (Lab) [address] [place], [address], 08/23/2023 20:03:52 08/23/20 23 08/23/2023 COMPR EHENS LUCRETIA METAB OLIC PANEL BUN 20 mg/dL 8-[address] [facility] (Lab) [address] [place], [address], 08/23/2023 20:03:52 08/23/2008/23/2023 COMPR EHENS LUCRETIA METAB OLIC PANEL creatinine 0.73 mg/dL 0.66-[address] [facility] (Lab) [address] [place], [address], 08/23/2023 20:03:52 08/23/2008/23/2023 COMPR EHENS LUCRETIA METAB OLIC PANEL GFR >60 Refer ence Range : Boron ge GFR Healt hy Adult : >60 mL/mi n/1.7 3 m2 Chron ic Kidne y Disea se: 15-60 mL/mi n/1.7 3 m2 Kidne y Failu re: <15/m L/min /1.73 m2 www.n iddk. nih.g ov The MDRD study equat ion has not been valid ated in child hermilo <18 years of age; pregn ant women ; the elder ly >85 years of age; or in some racia l or ethni c subgr oups, such as Hismi nics. Outsi de the valid ated lula eters , estim ated GFR is less accur ate, requi ring clini federica judgm ent on a case- by-ca se basis . Clini federica inter preta tion for other races and ages must be made by the clini juanita. The MDRD study equat ion has not been valid ated for the evalu ation of serum creat inine relat ed to nutri timur l statu s or medic ation usage . For perso ns <18 years of age, a pedia tric GFR calcu lator is avail able on the [employer] websi te: https ://maame shea.hector shen/pr damianess donnaal s/kdo qi/gf r_cal culat or Not Available [facility] (Lab) [address] [place], [address], 08/23/2023 20:03:52 08/23/2008/23/2023 COMPR EHENS LUCRETIA METAB OLIC PANEL alkaline phosphatase 57 U/L 38-126 Not Available [facility] (Lab) [address] [place], [address], 08/23/2023 20:03:52 08/23/20 23 08/23/2023 COMPR EHENS LUCRETIA METAB OLIC PANEL alanine aminotransfe rase 20 U/L 0-35 Not Available [facility] (Lab) [address] [place], [address], 08/23/2023 20:03:52 08/23/2008/23/2023 COMPR EHENS LUCRETIA METAB OLIC PANEL aspartate aminotransfe rase 27 U/L 15-37 Not Available [facility] (Lab) [address] [place], [address], 08/23/2023 20:03:52 08/23/2008/23/2023 COMPR EHENS LUCRETIA METAB OLIC PANEL bilirubin, total 0.60 mg/dL 0.20-[address] [facility] (Lab) [address] [place], [address], 08/23/2023 20:03:52 08/23/2008/23/2023 COMPR EHENS LUCRETIA METAB OLIC PANEL calcium 9.5 mg/dL 8.4-[address] [facility] (Lab) [address] [place], [address], 08/23/2023 20:03:52 08/23/2008/23/2023 COMPR EHENS LUCRETIA METAB OLIC PANEL total protein 7.2 g/dL 6.3-8. [address] [facility] (Lab) [address] [place], [address], 08/23/2023 20:03:52 08/23/20 23 08/23/2023 COMPR EHENS LUCRETIA METAB OLIC PANEL albumin 4.3 g/dL 3.0-4. [address] [facility] (Lab) [address] [place], [address], 08/23/2023 20:03:52 08/23/20 23 08/23/2023 COMPR EHENS LUCRETIA METAB OLIC PANEL globulin 2.9 g/dL 2.6-4. [address] [facility] (Lab) [address] [place], [address], 08/23/2023 20:03:52 08/23/2008/23/2023 COMPR EHENS LUCRETIA METAB OLIC PANEL A/G ratio 1.5 ratio 1.0-2. [address] [facility] (Lab) [address] [place], [address], 08/23/2023 20:03:52 08/23/2008/23/2023 LIPID PANEL cholesterol 257 mg/dL 140-19 9 high NIH JN NSUS RECOM MENDA TION FOR BRETT STERO L: ADULT CHILD LOW RISK: <200 <170 BORDE RLINE : <200- 239 ----- HIGH RISK: >240 >[address] [facility] (Lab) [address] [place], [address], 08/23/2023 20:04:02 08/23/20 23 08/23/2023 LIPID PANEL triglyceride s 168 mg/dL 0-150 high NIH JN NSUS REPOR T RECOM MENDA TION FOR TRIGL YCERI KEENAN: ADULT CHILD LOW RISK: <150 ----- BODER LINE: 150-1 99 ----- HIGH RISK: >200 ----- Not [address] [facility] (Lab) [address] [place], [address], 08/23/2023 20:04:02 08/23/20 23 08/23/2023 LIPID PANEL HDL cholesterol 59 mg/dL 40- Not Available [facility] (Lab) [address] [place], [address], 08/23/2023 20:04:02 08/23/20 23 08/23/2023 LIPID PANEL LDL cholesterol, calculated 164 mg/dL 0-130 high NIH JN NSUS REPOR T RECOM MENDA TIONS FOR LDL: ADULT CHILD LOW RISK <130 <110 (OPTI MAL LDL) <100 ----- BORDE RLINE : 130-1 59 ----- HIGH RISK: >160 >130 A TRIGL YCERI DE RESUL T >400 INVAL IDATE S THE CALCU LATIO N FOR LDL FRACT IONAT ION - THE LDL RESUL T WILL NOT BE REPOR ROE. Not Available [facility] (Lab) [address] [place], [address], 08/23/2023 20:04:02 09/08/20 23 09/08/2023 CBC/C OMPLE TE BLD COUNT W/DIF F white blood cells 5.0 x10'3 /uL 4.2-10 .8 Not Available [facility] (Lab) [address] [place], [address], 09/08/2023 18:33:45 09/08/20 23 09/08/2023 CBC/C OMPLE TE BLD COUNT W/DIF F red blood cells 4.42 x10'6 /uL 3.80-[address] [facility] (Lab) [address] [place], [address], 09/08/2023 18:33:45 09/08/20 23 09/08/2023 CBC/C OMPLE TE BLD COUNT W/DIF F hemoglobin 13.8 g/dL 12.0-[address] [facility] (Lab) [address] [place], [address], 09/08/2023 18:33:45 09/08/20 23 09/08/2023 CBC/C OMPLE TE BLD COUNT W/DIF F hematocrit 43.7 % 35.7-[address] [facility] (Lab) [address] [facility] [place], [address], 09/08/2023 18:33:45 09/08/20 23 09/08/2023 CBC/C OMPLE TE BLD COUNT W/DIF F mean red cell volume 98.9 fL 82.0-[address] [facility] (Lab) [address] [place], [address], 09/08/2023 18:33:45 09/08/20 23 09/08/2023 CBC/C OMPLE TE BLD COUNT W/DIF F mean red cell hemoglobin 31.2 pg 27.0-[address] [facility] (Lab) [address] [place], [address], 09/08/2023 18:33:45 09/08/20 23 09/08/2023 CBC/C OMPLE TE BLD COUNT W/DIF F mean RBC HGB concentratio n 31.6 g/dL 31.0-[address] [facility] (Lab) [address] [place], [address], 09/08/2023 18:33:45 09/08/20 23 09/08/2023 CBC/C OMPLE TE BLD COUNT W/DIF F red cell distribution width 12.9 % 11.8-[address] [facility] (Lab) [address] [place], [address], 09/08/2023 18:33:45 09/08/20 23 09/08/2023 CBC/C OMPLE TE BLD COUNT W/DIF F platelets 249 x10'3 /uL 150-[address] [facility] (Lab) [address] [place], [address], 09/08/2023 18:33:45 09/08/20 23 09/08/2023 CBC/C OMPLE TE BLD COUNT W/DIF F mean platelet volume 11.7 fL 9.0-12 .4 Not Available [facility] (Lab) [address] [place], [address], 09/08/2023 18:33:45 09/08/20 23 09/08/2023 CBC/C OMPLE TE BLD COUNT W/DIF F neutrophils 64.6 % 39.0-[address] [facility] (Lab) [address] [place], [address], 09/08/2023 18:33:45 09/08/20 23 09/08/2023 CBC/C OMPLE TE BLD COUNT W/DIF F lymphocytes 23.6 % 16.0-[address] [facility] (Lab) [address] [place], [address], 09/08/2023 18:33:45 09/08/20 23 09/08/2023 CBC/C OMPLE TE BLD COUNT W/DIF F monocytes 9.2 % 5.0-12 .0 Not Available [facility] (Lab) [address] [place], [address], 09/08/2023 18:33:45 09/08/20 23 09/08/2023 CBC/C OMPLE TE BLD COUNT W/DIF F eosinophils 1.8 % 1.0-7. [address] [facility] (Lab) [address] [place], [address], 09/08/2023 18:33:45 09/08/20 23 09/08/2023 CBC/C OMPLE TE BLD COUNT W/DIF F basophils 0.6 % 0.0-2. [address] [facility] (Lab) [address] [place], [address], 09/08/2023 18:33:45 09/08/20 23 09/08/2023 CBC/C OMPLE TE BLD COUNT W/DIF F immature granulocytes 0.2 % 0.00-[address] [facility] (Lab) [address] [place], [address], 09/08/2023 18:33:45 09/08/20 23 09/08/2023 CBC/C OMPLE TE BLD COUNT W/DIF F neutrophils, absolute count 3.22 x10'3 /uL 1.5-8. [address] [facility] (Lab) [address] [place], [address], 09/08/2023 18:33:45 09/08/20 23 09/08/2023 CBC/C OMPLE TE BLD COUNT W/DIF F lymphocytes, absolute count 1.18 x10'3 /uL 1.07-[address] [facility] (Lab) [address] [place], [address], 09/08/2023 18:33:45 09/08/20 23 09/08/2023 CBC/C OMPLE TE BLD COUNT W/DIF F monocytes, absolute count 0.46 x10'3 /uL 0.29-[address] [facility] (Lab) [address] [place], [address], 09/08/2023 18:33:45 09/08/20 23 09/08/2023 CBC/C OMPLE TE BLD COUNT W/DIF F eosinophils, absolute count 0.09 x10'3 /uL 0.02-[address] [facility] (Lab) [address] [place], [address], 09/08/2023 18:33:45 09/08/20 23 09/08/2023 CBC/C OMPLE TE BLD COUNT W/DIF F basophils, absolute count 0.03 x10'3 /uL 0.01-[address] [facility] (Lab) [address] [place], [address], 09/08/2023 18:33:45 1109/08/2023 CBC/C OMPLE TE BLD COUNT W/DIF F immature granulocytes ,absolute 0.01 x10'3 /uL 0.00-[address] [facility] (Lab) [address] [place], [address], 09/08/2023 18:33:45 09/08/20 23 09/08/2023 CBC/C OMPLE TE BLD COUNT W/DIF F nucleated red blood cells 0.0 % -0 Not Available [facility] (Lab) [address] [place], [address], 09/08/2023 18:33:45 09/08/2009/08/2023 CBC/C OMPLE TE BLD COUNT W/DIF F NRBC# 0.00 x10'3 /uL Not Available [facility] (Lab) [address] [place], [address], 09/08/2023 18:33:45 09/08/20 23 09/08/2023 COMPR EHENS LUCRETIA METAB OLIC PANEL sodium 136 mmol/ L 137-[address] [facility] (Lab) [address] [place], [address], 09/08/2023 18:45:11 09/08/20 23 09/08/2023 COMPR EHENS LUCRETIA METAB OLIC PANEL potassium 4.1 mmol/ L 3.5-5. [address] [facility] (Lab) [address] [place], [address], 09/08/2023 18:45:11 09/08/20 23 09/08/2023 COMPR EHENS LUCRETIA METAB OLIC PANEL chloride 102 mmol/ L 98-[address] [facility] (Lab) [address] [place], [address], 09/08/2023 18:45:11 09/08/20 23 09/08/2023 COMPR EHENS LUCRETIA METAB OLIC PANEL carbon dioxide 29 mmol/ L 22-[address] [facility] (Lab) [address] [place], [address], 09/08/2023 18:45:11 09/08/20 23 09/08/2023 COMPR EHENS LUCRETIA METAB OLIC PANEL anion gap 9.1 mmol/ L 14-[address] [facility] (Lab) [address] [place], [address], 09/08/2023 18:45:11 09/08/20 23 09/08/2023 COMPR EHENS LUCRETIA METAB OLIC PANEL glucose 94 mg/dL 70-[address] [facility] (Lab) [address] [place], [address], 09/08/2023 18:45:11 09/08/20 23 09/08/2023 COMPR EHENS LUCRETIA METAB OLIC PANEL BUN 17 mg/dL 8-[address] [facility] (Lab) [address] [place] [address], [address], 09/08/2023 18:45:11 09/08/20 23 09/08/2023 COMPR EHENS LUCRETIA METAB OLIC PANEL creatinine 0.67 mg/dL 0.66-[address] [facility] (Lab) [address] [place] [address], [address], 09/08/2023 18:45:11 09/08/20 23 09/08/2023 COMPR EHENS LUCRETIA METAB OLIC PANEL GFR >60 Refer ence Range : Boron ge GFR Healt hy Adult : >60 mL/mi n/1.7 3 m2 Chron ic Kidne y Disea se: 15-60 mL/mi n/1.7 3 m2 Kidne y Failu re: <15/m L/min /1.73 m2 www.n iddk. nih.g ov The MDRD study equat ion has not been valid ated in child hermilo <18 years of age; pregn ant women ; the elder ly >85 years of age; or in some racia l or ethni c subgr oups, such as Hispa nics. Outsi de the valid ated lula eters , estim ated GFR is less accur ate, requi ring clini federica judgm ent on a case- by-ca se basis . Clini federica inter preta tion for other races and ages must be made by the clini juanita. The MDRD study equat ion has not been valid ated for the evalu ation of serum creat inine relat ed to nutri timur l statu s or medic ation usage . For perso ns <18 years of age, a pedia tric GFR calcu lator is avail able on the [facility] websi te: https ://maame w.rich shea.o ac/pr ofess ional s/kdo qi/gf r_cal culat or Not Available [facility] (Lab) [address] [place], [address], 09/08/2023 18:45:11 09/08/20 23 09/08/2023 COMPR EHENS LUCRETIA METAB OLIC PANEL alkaline phosphatase 56 U/L 38-126 Not Available [facility] (Lab) [address] [place], [address], 09/08/2023 18:45:11 09/08/20 23 09/08/2023 COMPR EHENS LUCRETIA METAB OLIC PANEL alanine aminotransfe rase 18 U/L 0-35 Not Available [facility] (Lab) [address] [place], [address], 09/08/2023 18:45:11 09/08/20 23 09/08/2023 COMPR EHENS LUCRETIA METAB OLIC PANEL aspartate aminotransfe rase 25 U/L 15-37 Not Available [facility] (Lab) [address] [place], [address], 09/08/2023 18:45:11 09/08/20 23 09/08/2023 COMPR EHENS LUCRETIA METAB OLIC PANEL bilirubin, total 0.60 mg/dL 0.20-[address] [facility] (Lab) [address] [place], [address], 09/08/2023 18:45:11 09/08/20 23 09/08/2023 COMPR EHENS LUCRETIA METAB OLIC PANEL calcium 9.9 mg/dL 8.4-[address] [facility] (Lab) [address] [place], [address], 09/08/2023 18:45:11 09/08/20 23 09/08/2023 COMPR EHENS LUCRETIA METAB OLIC PANEL total protein 7.3 g/dL 6.3-8. [address] [facility] (Lab) [address] [place], [address], 09/08/2023 18:45:11 09/08/20 23 09/08/2023 COMPR EHENS LUCRETIA METAB OLIC PANEL albumin 4.2 g/dL 3.0-4. [address] [facility] (Lab) [address] [place], [address], 09/08/2023 18:45:11 09/08/20 23 09/08/2023 COMPR EHENS LUCRETIA METAB OLIC PANEL globulin 3.1 g/dL 2.6-4. [address] [facility] (Lab) [address] [place], [address], 09/08/2023 18:45:11 09/08/20 23 09/08/2023 COMPR EHENS LUCRETIA METAB OLIC PANEL A/G ratio 1.4 ratio 1.0-2. [address] [facility] (Lab) [address] [place], [address], 09/08/2023 18:45:11 09/08/20 23 09/08/2023 MAGNE SIUM magnesium 2.3 mg/dL 1.6-2. [address] [facility] (Lab) [address] [place], [address], 09/08/2023 18:45:15 09/08/20 23 09/08/2023 T4 FREE free T4 1.21 NG/dL 0.78-[address] [facility] (Lab) [address] [place], [address], 09/08/2023 18:59:57 09/08/2009/08/2023 T3 FREE free T3 4.5 pg/mL 2.77-[address] [facility] (Lab) [address] [place], [address], 09/08/2023 19:00:03 09/08/2009/08/2023 TSH thyroid-stim ulating hormone 0.495 uIU/m L 0.465- 4.[address] [facility] (Lab) [address] [place], [address], 09/08/2023 19:13:19 09/09/20 23 XR, knee [facility] [address] [place] [address] Patien t Name: ANURAG FLOWER ion #: [id number] Sex: F : 1954 3 Dictat ed By: Aditi Cabrera Attend ing Physic josefa: [facility]: LEIGH PLASCENCIA Exam Date: 2022 14:21 PM Exam Name: XR KNEE LT 3V Admitt ing Diagno sis(es ): CLINIC AL INDICA TION: TECHNI QUE: 3 radiog raphic views of the left knee were obtain ed. Compar kendall: None FINDIN GS/ IMPRES SUSIE: There is no eviden ce of acute fractu re or disloc ation. Electr onical ly Signed by: Aditi Cabrera at 2022 06:51: 12 AM Page [email or web address] [facility] (Imaging) [address] [place], [address], 09/24/2023 17:52:39 09/09/20 23 09/09/2023 (LUL) ankle brach ial index * No observ ation record ed. [address] (Radiology) [address], [place], [address], 09/24/2023 17:44:23 10/03/20 23 10/03/2023 MRI, lumba r spine , w/o contr ast No observ ation record ed. [address] [facility] [address] [facility] [address], [place], [address], 10/04/2023 14:56:42 10/03/20 23 10/03/2023 MRI, lumba r spine , w/o contr ast No observ ation record ed. [address], [place], [address], 10/04/2023 14:56:53 10/04/20 23 09/16/2023 jacqueline r monit or No observ ation record ed. [address] [facility] [address], [place], [address], 11/05/2023 11:42:00 11/11/19 24 MAMMO , scree lupe, digit al, bilat eral [facility] [place] [address] [place] [address] Patien t Name: ANURAG FLOWER Access ion #: [id number] Sex: F : 1954 5 Dictat ed By: Muriel Caballero Attend ing Physic josefa: LEIGH PLASCENCIA Orderi ng Physic josefa: LEIGH PLASCENCIA Exam Date: 2023 09:50 AM Exam Name: MG FITO Larios HERBER BILAT SCREEN Admitt ing Diagno sis(es ): CLINIC AL HISTOR Y: Screen ing COMPAR KENDALL STUDY: 11/04/22 ; 11/03/19 TECHNI QUE: Using a full field digita l 2D mammog riley unit CC and MLO views of both breast s are perfor med. FINDIN GS: BREAST COMPOS ITION: The bilate ral breast s are almost entire ly fatty. No suspic ious masses , jamal ectura l distor tion, asymme tries or suspic ious calcif icatio ns in both breast s. IMPRES SUSIE: No eviden ce of malign ammon. Recomm end annual mammog matthew. BIRADS : 2 - Benign Electr onical ly Signed by: Muriel Caballero at 2023 11:36: 35 AM Page 1 [facility] (Imaging) [address] [place], [address], 11/22/2023 08:56:55 01/25/20 24 01/25/2024 MRI, cervi federica spine , w/o contr ast No observ ation record ed. [email or web address] [facility] [facility] [address] [address], [place], [address], 07/10/2024 10:00:22 02/13/20 24 02/13/2024 MAMMO , scree lupe, digit al, bilat eral No observ ation record ed. [email or web address] [facility] [address] [place] [address] Dr, [place], [address], 02/16/2024 08:38:15 03/28/20 24 DEXA, axial skele ton [facility] [address] [place] [address] Patien t Name: ANURAG FLOWER Access ion #: [id number] Sex: F : 1954 8 Dictat ed By: Muriel Caballero Attend ing Physic josefa: LEIGH PL[facility]IA [facility]: LEIGH PLASCENCIA Exam Date: 2023 10:13 AM Exam Name: XR DEXA AXIAL/ HIP/PE LVIS/S PINE Admitt ing Diagno sis(es ): INDICA TION: 68 years old, Female ; postme nopaus al state. Osteop orosis screen ing DEXA SCAN: BONE DENSIT Y REPORT : AP SPINE (L1-L4 ) : T Score: -0.8 LEFT FEMORA L NECK : T Score: -1.2 RT FEMORA L NECK : T Score: -1.6 LEFT HIP TOTAL : T Score: -0.1 RT HIP TOTAL : T Score: -0.2 TOTAL BILAT HIP AVG: T Score: -0.2 10 YEAR FRACTU RE RISK* Not provid ed. IMPRES SUSIE: 1. 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 2. Normal bone minera l densit y of the lumbar spine. ------ ------ ------ ------ ------ ------ ------ ------ ----- *FRAX versio n 3.08. Fractu re probab ility calcul ated for an untrea roe patien t. Fractu re probab ility may be lower if the patien t has receiv ed treatm ent. Page 1 [facility] [address] [place] [address] Patien t Name: ANURAG FLOWER Access ion #: [id number] Sex: F : 1954 8 Dictat ed By: Muriel Caballero Attend ing Physic josefa: VICTOR M AGUILAR [facility] Physic josefa: LEIGH PLASCENCIA Exam Date: 2023 10:13 AM Exam Name: XR DEXA AXIAL/ HIP/PE LVIS/S PINE Admitt ing Diagno sis(es ): T-scor e: compar kendall by ally kohli deviat ion (SD) to a young adult popula tion, isidro d for sex and ethnic ity (used for postme erica al women and men >50 years) and classi fied by WHO criter ia. -1.0: normal <-1.0 to >-2.5: osteop enia -2.5: osteop orosis -2.5 plus fragil ity fractu re: severe osteop orosis Z-scor e: compar ed by SD to an age, sex, and ethnic ity popula tion (used for premen opausa l women, men <50 years, and childr en instea d of T-scor e WHO criter ia 4) <-2.0: below expect ed range/ low bone densit y for age, and a cause should be sought Electr onical ly Signed by: Muriel Caballero at 2023 11:29: 58 AM Page [email or web address] [facility] (Imaging) [address] [place], [address], 05/15/2024 10:15:51 Result Notes None recorded. Problems Name Problem SNOMED Code Status Onset Date Resolution Date Notes Provider Name and Address Organization Details Recorded Time Dysfuncti on of bilateral eustachia n tubes 94526444992 02449 Active 2021 Not Available [facility] 4 04:24:10 Impacted cerumen in right ear 79436332713 16745 Active 2021 Not Available [facility] 4 04:24:10 Dysfuncti on of right eustachia n tube 32568413526 62578 Active 2021 Not Available [facility] 4 04:24:10 Benign essential hypertens ion 9298810 Active Not Available [facility] 4 04:24:10 Computed tomograph y result abnormal 996310881 Active Not Available [facility] 4 04:24:10 Constipat ion 74297941 Completed Not Available [facility] 3 06:11:30 Acute sinusitis 04634181 Completed Not Available [facility] 3 06:11:31 Insomnia 909984953 Active Not Available [facility] 4 04:24:10 Sensorine ural hearing loss of bilateral ears 383609801 Active 2021 Not Available [facility] 4 04:24:10 Chronic constipat ion 846603459 Active 2020 Not Available [facility] 4 04:24:10 Adrenal mass 539033431 Active Not Available [facility] 4 04:24:10 Adrenal adenoma 623199030 Active Not Available [facility] 4 04:24:10 Tremor 05723481 Active Not Available [facility] 4 04:24:10 Pure hyperchol esterolem ia 010657611 Active Not Available [facility] 4 04:24:10 Malaise and fatigue 959904546 Active Not Available [facility] 4 04:24:10 Low back pain 970803846 Active 2022 Not Available [facility] 4 04:24:10 Eruption caused by drug 30743979 Active 2017 Not Available [facility] 4 04:24:10 Vitamin D deficienc y 89818950 Active Not Available [facility] 4 04:24:10 Umbilical hernia 170749514 Active Not Available [facility] 4 04:24:10 Asymmetri federica sensorine ural hearing loss 814593148 Active 2021 Not Available [facility] 4 04:24:11 Acute urinary tract infection 423763990 Active 2022 Not Available [facility] 4 04:24:11 Presbycus is 07107515 Active 2021 Not Available [facility] 4 04:24:11 Cough 24389120 Active 2021 Not Available [facility] 4 04:24:11 Acute upper respirato ry infection 04692952 Active 2021 Not Available [facility] 4 04:24:11 Sensorine ural hearing loss 78132631 Active 2021 Not Available [facility] 4 04:24:11 Sudden sensorine ural hearing loss 993115344 Active 2021 Not Available [facility] 4 04:24:11 COVID-19 775073998 Active 2021 Not Available [facility] 4 04:24:11 Hiatal hernia 98957893 Active Not Available [facility] 4 04:24:11 Kidney stone 58059486 Active 2022 Not Available [facility] 4 04:24:11 Celluliti s of lower limb 548991035 Active 2022 Not Available [facility] 4 04:24:11 Upper respirato ry infection 00052022 Active 2022 Not Available [facility] 4 04:24:11 Bradycard ia 52100723 Active 2022 Not Available [facility] 4 04:24:11 Edema of lower extremity 536804226 Active 2022 Not Available [facility] 4 04:24:10 Pain of left knee joint 03267999658 4107 Active 2022 Not Available [facility] 4 04:24:11 Essential hypertens ion 56665267 Active 2022 Not Available [facility] 4 04:24:11 Sciatica 68346858 Active 2022 Not Available [facility] 4 04:24:10 Paresthes ia of lower extremity 714129128 Active 2022 Not Available [facility] 4 04:24:11 Otitis media 09082311 Active 2024 JASMINA Mae [address] [facility], [address] [address], [place], [address] , [employer] [facility] [employer] 5 12:43:50 Impacted cerumen of bilateral ears 34975044638 52763 Active 2024 JASMINA Mae [address] [facility], [address] [address], [place], [address] , [employer] [facility] [employer] 5 12:44:24 Problem Notes None recorded. Procedures Surgical History Date Name Laterality Status Provider Name and Address Organization Details Recorded Time 07/31/20 21 MYRINGOTOMY, BILATERAL, WITH TUBE INSERTION (SURG) completed Not Available [facility] 12/29/2022 06:17:26 11/03/19 21 Most Recent Bone Density completed Not Available [facility] 12/29/2022 06:06:31 02/26/20 15 Drain/inj joint/bursa w/o us completed Not Available [facility] 12/29/2022 06:06:33 02/26/20 15 Total knee arthroplasty completed Not Available [facility] 12/29/2022 06:06:33 07/20/20 13 Date of Last Colonoscopy completed Not Available [facility] 12/29/2022 06:06:31 07/20/20 13 Colonoscopy completed Not Available [facility] 12/30/19 06:06:33 12/10/19 04 Colonoscopy completed Not Available [facility] 12/30/19 06:06:33 Hysterectomy completed Not Available [facility] 12/29/2022 06:06:33 Imaging Results Imaging Date Name Status LastModified by Napoleon ation Details LastModified Time 09/09/2023 XR, knee completed [email or web address] [facility] (Imaging) [address] [place], [address], 09/24/2023 17:52:39 09/09/2023 (LUL) ankle brachial index* completed [address] (Radiology) [address] [place], [address], 09/24/2023 17:44:23 10/03/2023 MRI, lumbar spine, w/o contrast completed [address] [facility] [address] [facility] [address], [place], [address], 10/04/2023 14:56:42 10/03/2023 MRI, lumbar spine, w/o contrast [facility] [facility] [address], [place], [address], 10/04/2023 14:56:53 09/16/2023 holter monitor completed [address] [facility] [address], [place], [address], 11/05/2023 11:42:00 11/11/2023 MAMMO, screening, digital, bilateral completed cyl [facility] (Imaging) [address] [place], [address], 11/22/2023 08:56:55 01/25/2024 MRI, cervical spine, w/o contrast completed [email or web address] [facility] [address] [facility] [address], [place], [address], 07/10/2024 10:00:22 02/13/2024 MAMMO, screening, digital, bilateral completed [email or web address] [facility] [address] , [place], [address], 02/16/2024 08:38:15 03/28/2024 DEXA, axial skeleton completed [email or web address] [facility] (Imaging) [address] [place], [address], 05/15/2024 10:15:51 Procedure Notes None recorded. Medical Equipment None Reported. Allergies Allergen ID Allergen Name Allergen Category Reaction Reaction Severity Criticality Documentation Date Start Date Code Code System Note Provider Name and Address Organization Details Recorded Time 60648 Product containin g 3-hydroxy -3-methyl glutaryl- coenzyme A reductase inhibitor (product) medicatio n rash moderate Not available 12/29/2022 57140 009 SNOMED Not Available [facility] 3 06:17:10 33743 lisinopri l medicatio n itching rash Not available Not available Not available 12/29/2022 31541 RxNorm Not Available [facility] 3 06:17:10 Medications Name Sig Start Date Stop Date Status Note LastModified by Organization Details LastModified Time amoxicill in 500 mg capsule Take 1 capsule 3 times a day by oral route for 7 days. active Not Available Not Available No t Available atorvasta tin 40 mg tablet TAKE 1 TABLET BY MOUTH DAILY 2022 active Not Available Not Available Not Avai lable primidone 50 mg tablet TAKE 1 TABLET BY MOUTH DAILY DIRECTED active Not Available Not Available No t Available doxycycli ne hyclate 100 mg capsule TAKE 1 CAPSULE BY MOUTH TWICE DAILY FOR 7 DAYS 08/23 completed Not Available Not Available Not Available atorvasta tin 20 mg tablet TAKE 1 TABLET(S ) EVERY DAY BY ORAL ROUTE. 05/11 completed pt stopped taking due to skin issue Not Available Not Available Not Available Ceftin 500 mg tablet Take 1 tablet twice a day by oral route for 10 days. 06/28 completed Not Available Not Available Not Available lisinopri l 20 mg-hydroc hlorothia zide 12.5 mg tablet TAKE ONE TABLET BY MOUTH ONCE DAILY 11/03 completed allergic to it Not Available Not Available Not Available azithromy sil 250 mg tablet TAKE 2 TABLETS BY MOUTH FOR 1 DAY THEN TAKE 1 TABLET BY MOUTH DAILY FOR 4 DAYS 11/01 completed Not Available Not Available Not Available ibuprofen 800 mg tablet 09/14 completed Not Available Not Available Not Available benzonata te 200 mg capsule Take 1 capsule 3 times a day by oral route as needed. active Not Available Not Available No t Available doxepin 25 mg capsule TAKE 1 TO 2 CAPSULES BY MOUTH AT BEDTIME NEEDED 05/17 completed Not Available Not Available Not Available ondansetr on HCl 4 mg tablet 11/20 completed Not Available Not Available Not Available prednison e 20 mg tablet TAKE 2 TABLETS BY MOUTH DAILY 11/03 completed Not Available Not Available Not Available alendrona te 70 mg tablet TAKE 1 TABLET BY MOUTH EVERY WEEK 12/02 completed Not Available Not Available Not Available clobetaso l 0.05 % topical cream APPLY TO AFFECTED AREA TWICE A DAY 11/15 completed Not Available Not Available Not Available permethri n 5 % topical cream 11/20 completed Not Available Not Available Not Available hydroxyzi ne pamoate 50 mg capsule 11/20 completed Not Available Not Available Not Available hydroxyzi ne HCl 50 mg tablet 07/24 completed Not Available Not Available Not Available amlodipin e 5 mg tablet TAKE 1 TABLET BY MOUTH EVERY DAY active Not Available Not Available No t Available sulfameth oxazole 800 mg-trimet hoprim 160 mg tablet TAKE 1 TABLET BY MOUTH TWICE DAILY 03/03 completed Not Available Not Available Not Available tramadol 50 mg tablet TAKE 1 TO 2 TABLETS PO Q 8 H PRN 11/20 completed Not Available Not Available Not Available triamcino lone acetonide 0.1 % topical cream 12/18 completed Not Available Not Available Not Available flurbipro fen (bulk) powder 09/14 completed Not Available Not Available Not Available ketorolac 10 mg tablet TAKE 1 TABLET BY MOUTH EVERY 6 HOURS NEEDED 03/03 completed Not Available Not Available Not Available zonisamid e 100 mg capsule 09/10 completed Not Available Not Available Not Available oxycodone -acetamin ophen 5 mg-325 mg tablet 07/24 completed Not Available Not Available Not Available propranol ol 40 mg tablet Take 1 tablet every day by oral route for 100 days. 09/08 completed Not Available Not Available Not Available estradiol 1 mg tablet TAKE 1 TABLET BY MOUTH EVERY DAY 08/23 completed Not Available Not Available Not Available meclizine 25 mg tablet Take 1 tablet every day by oral route as needed. active PRN Not Available Not Available No t Available benzonata te 100 mg capsule 11/03 completed Not Available Not Available Not Available hydrocodo ne 7.5 mg-acetam inophen 325 mg tablet 11/20 completed Not Available Not Available Not Available hydralazi ne 100 mg tablet Take 1 tablet twice a day by oral route. 12/18 completed Not Available Not Available Not Available pantopraz ole 40 mg tablet,de layed release 01/16 completed Not Available Not Available Not Available simvastat in 20 mg tablet TAKE 1 TABLET EVERY DAY DIRECTED 05/16 completed Not Available Not Available Not Available omeprazol e 20 mg capsule,d elayed release TAKE 1 CAPSULE BY MOUTH DAILY 2023 active Not Available Not Available Not Avai lable diclofena c sodium 75 mg tablet,de layed release one tablet bid prn 11/20 completed Not Available Not Available Not Available zolpidem 5 mg tablet TAKE 1 TABLET BY MOUTH EVERY DAY AT BEDTIME active Not Available Not Available No t Available furosemid e 20 mg tablet TAKE 1 TABLET EVERY DAY BY ORAL ROUTE NEEDED. 12/18 completed Not Available Not Available Not Available estradiol 0.5 mg tablet TAKE 1 TABLET BY MOUTH EVERY DAY 11/01 completed Not Available Not Available Not Available ergocalci ferol (vitamin D2) 1,250 mcg (50,000 unit) capsule TAKE 1 CAPSULE BY MOUTH WEEKLY active Not Available Not Available No t Available azelastin e 137 mcg (0.1 %) nasal spray [place] 2 sprays twice a day by intranas al route. active Not Available Not Available No t Available zolpidem 10 mg tablet TAKE 1 TABLET BY MOUTH AT BEDTIME NEEDED 09/08 completed last filled 10/20/22 Not Available Not Available Not Available methylpre dnisolone 4 mg tablets in a dose pack FOLLOW PACKAGE DIRECTIO NS 09/29 completed Not Available Not Available Not Available propranol ol 20 mg tablet TAKE 1 TABLET BY MOUTH TWICE DAILY 11/01 completed Not Available Not Available Not Available cefdinir 300 mg capsule 11/03 completed Not Available Not Available Not Available fluoxetin e 20 mg capsule TK 1 C PO QD 12/02 completed Not Available Not Available Not Available fluticaso ne propionat e 50 mcg/actua tion nasal spray,angle pension SHAKE LIQUID AND USE 1 SPRAY IN EACH NOSTRIL EVERY DAY 09/10 completed Not Available Not Available Not Available naproxen 500 mg tablet TAKE 1 TABLET BY MOUTH TWICE A DAY 06/30 completed Not Available Not Available Not Available spironola ctone 50 mg tablet Take 1 tablet every day by oral route. 12/18 completed Not Available Not Available Not Available diazepam 5 mg tablet Take 1 tablet as needed by oral route. 08/30 completed Not Available Not Available Not Available neomycin- polymyxin -hydrocor t 3.5 mg-10,000 unit/mL-1 % ear drops,angle p 07/24 completed Not Available Not Available Not Available Daily-Vit e tablet TK 1 T PO QD active Not Available Not Available No t Available Asprin Ec Low Dose 81 mg tablet,de layed release Take 1 tablet every day by oral route. 2021 active Not Available Not Available Not Avai lable ciproflox acin 0.3 %-dexamet hasone 0.1 % ear drops,angle pension INSTILL 4 DROPS INTO AFFECTED EAR(S) BY OTIC ROUTE 2 TIMES PER DAY FOR 7 DAYS active Not Available Not Available No t Available zonisamid e 50 mg capsule TAKE 1 CAPSULE BY MOUTH EVERY DAY 09/10 completed Not Available Not Available Not Available nitrofura ntoin monohydra te/macroc rystals 100 mg capsule TAKE 1 CAPSULE BY MOUTH EVERY 12 HOURS FOR 5 DAYS 03/03 completed Not Available Not Available Not Available lactulose 10 gram/15 mL oral solution 15 CC BID active Not Available Not Available No t Available EEMT HS 0.625 mg-1.25 mg tablet active Not Available Not Available No t Available magnesium 09/08 completed Not Available Not Available Not Available Vitamin C 2021 active Not Available Not Available Not Avai lable magnesium citrate active Not Available Not Available Not Available valsartan 12/18 completed Not Available Not Available Not Available estradiol 06/18 completed t Not Available Not Available Not Available Fish Oil 05/17 completed Not Available Not Available Not Available folic acid 12/18 completed Not Available Not Available Not Available Vitamin D3 09/10 completed Not Available Not Available Not Available Miralax 2021 active Not Available Not Available Not Avai lable multivita min 2021 active Not Available Not Available Not Avai lable ProAir HFA 90 mcg/actua tion aerosol inhaler 12/02 completed Not Available Not Available Not Available vitamin B comp and C no.3 11/01 completed Not Available Not Available Not Available calcium 600 mg (as carbonate )-vitamin D3 10 mcg (400 unit) tablet TK 1 T PO BID active Not Available Not Available No t Available omeprazol e 20 mg tablet,de layed release Take 1 tablet by oral route. 08/24 completed Not Available Not Available Not Available GaviLyte- N 420 gram oral solution 09/14 completed Not Available Not Available Not Available Viibryd 40 mg tablet Take 1 tablet every day by oral route. 01/08 completed Not Available Not Available Not Available Xarelto 10 mg tablet 07/24 completed Not Available Not Available Not Available red yeast rice 11/15 completed Not Available Not Available Not Available Linzess 290 mcg capsule TK 1 C PO QD IN THE MORNING active Not Available Not Available No t Available Virtussin AC 10 mg-100 mg/5 mL oral liquid 03/18 completed Not Available Not Available Not Available Fluvirin 45 mcg (15 mcg x 3)/0.5 mL intramusc ular suspensio n active Not Available Not Available Not Available Fluzone High-Dose Quad 2020-21 (PF) 240 mcg/0.7 mL IM syringe TO BE ADMINIST ERED BY [employer] ST FOR IMMUNIZA TION active Not Available Not Available No t Available Paxlovid 300 mg (150 mg x 2)-100 mg tablets in a dose pack Take 3 tablets twice a day by oral route for 5 days. active Not Available Not Available No t Available Vitals Date Recorded Body height Body mass index (BMI) Body weight Body temperature Heart rate Systolic blood pressure Diastolic blood pressure Provider Name and Address Organization Details Last Updated DateTime 3 165.1 cm 25 kg/m2 25699.8 6 g 98 [degF] 58 /min 132 mm[Hg] 72 mm[Hg] Kandice larios RN [facility] [employer] [facility] 3 14:41:59 Date Recorded Body height Body mass index (BMI) Body weight Body temperature Heart rate Systolic blood pressure Diastolic blood pressure Provider Name and Address Organization Details Last Updated DateTime 3 165.1 cm 25 kg/m2 65535.8 6 g 97.8 [degF] 52 /min 142 mm[Hg] 82 mm[Hg] Nancie Carrasquillo, SHADI [facility] [employer] [facility] 3 14:10:11 Date Recorded Body height Body mass index (BMI) Body weight Body temperature Heart rate Heart rate Systolic blood pressure Diastolic blood pressure Systolic blood pressure Diastolic blood pressure Provider Name and Address Organization Details Last Updated DateTime 3 165.1 cm 24.3 kg/m2 09358.4 9 g 97.3 [degF] 81 /min 80 /min 144 mm[Hg] 82 mm[Hg] 152 mm[Hg] 87 mm[Hg] ALICIA Mcgovern [facility] [employer] [facility] 3 16:32:54 Date Recorded Body height Body mass index (BMI) Body weight Body temperature Heart rate Systolic blood pressure Diastolic blood pressure Provider Name and Address Organization Details Last Updated DateTime 3 165.1 cm 24.5 kg/m2 26236.0 8 g 97.2 [degF] 92 /min 120 mm[Hg] 84 mm[Hg] ALICIA Mcgovern [facility] [employer] 14:44:42 Date Recorded Body weight Body mass index (BMI) Body height Body temperature Provider Name and Address Organization Details Last Updated DateTime 11/01/2024 33726.34 g 23.1 kg/m2 165.1 cm 98 [degF] Brii Painter RN [place] [facility] [employer] 11/01/2024 12:16:59 Social History Question Answer Notes LastModified by Organization Details LastModified Time Tobacco Smoking Status Never Smoker Not Available [employer] 12/29/2022 06:05:34 Do You Have An Advance Directive? No Information Provided To Patient [id number] Information not available 12/29/2022 What Is Your Level Of Alcohol Consumption? Occasional [id number] Information not available 12/29/2022 Are You Blind Or Do You Have Difficulty Seeing? No [id number] Information not available 12/29/2022 What Is Your Level Of Caffeine Consumption? Moderate [id number] Information not available 12/29/2022 How Much Tobacco Do You Chew? None [id number] Information not available 12/29/2022 In The 14 Days Before Symptom Onset, Have You Had Close Contact With A Laboratory-conf irmed COVID-19 While That Case Was Ill? No [id number] Information not available 12/29/2022 In The 14 Days Before Symptom Onset, Have You Had Close Contact With A Person Who Is Under Investigation For COVID-19 While That Person Was Ill? No MIGRATION.423 [id number] Information not available 12/29/2022 Are You Currently Employed? No [email or web address] Information not available 03/03/2023 Are You Deaf Or Do You Have Serious Difficulty Hearing? Yes Patient Unable To Tell If Both Ears Have Hearing Loss; Did Complain Of Ringing In Ears. MIGRATION.212 [id number] Information not available 12/29/2022 What Type Of Diet Are You Following? REGULAR MIGRATION.380 5994139 Information not available 12/29/2022 Which Illicit Or Recreational Drugs Have You Used? None MIGRATION.653 [id number] Information not available 12/29/2022 Do You Or Have You Ever Used E-cigarettes Or Vape? Never Used Electronic Cigarettes MIGRATION.110 9374116 Information not available 12/29/2022 What Is The Highest Grade Or Level Of School You Have Completed Or The Highest Degree You Have Received? [id number] MIGRATION.851 [id number] Information not available 12/29/2022 What Is Your Occupation? Retired MIGRATION.145 [id number] Information not available 12/29/2022 Have There Been Any Changes To Your Family Or Social Situation? No MIGRATION.364 9897748 Information not available 12/29/2022 What Is The Fluoride Status Of Your Home? Unknown MIGRATION.039 8442556 Information not available 12/29/2022 Are There Any Guns Present In Your Home? No MIGRATION.147 6122194 Information not available 12/29/2022 Do You Use Insect Repellent Routinely? No MIGRATION.067 5067108 Information not available 12/29/2022 Where Do You Live? 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 No MIGRATION.451 5496345 Information not available 12/29/2022 What Was The Date Of Your Most Recent Tobacco Screening? 09/29/2023 [email or web address] Information not available 09/29/2023 Have You Ever Been Counseled For Unhealthy Alcohol Use? No MIGRATION.565 0369215 Information not available 12/29/2022 Do You Have Any Pets? No MIGRATION.587 2806359 Information not available 12/29/2022 What Is Your Relationship Status? MIGRATION.033 9400779 Information not available 12/29/2022 Do You Use Your Seat Belt Or Car Seat Routinely? Yes MIGRATION.328 1693721 Information not available 12/29/2022 Do You Have Smoke And Carbon Monoxide Detectors In Your Home? Yes MIGRATION.800 4934456 Information not available 12/29/2022 Are You Passively Exposed To Smoke? No MIGRATION.645 8911506 Information not available 12/29/2022 Do You Or Have You Ever Used Smokeless Tobacco? Never Used Smokeless Tobacco MIGRATION.408 4493893 Information not available 12/29/2022 Are There Any Smokers In Your House? No MIGRATION.579 4657044 Information not available 12/29/2022 How Much Tobacco Do You Smoke? No MIGRATION.855 3237925 Information not available 12/29/2022 What Types Of Sporting Activities Do You Participate In? None MIGRATION.079 3070773 Information not available 12/29/2022 Do You Feel Stressed (tense, Restless, Nervous, Or Anxious, Or Unable To Sleep At Night)? [id number] MIGRATION.209 4533086 Information not available 12/29/2022 Do You Use Any Illicit Or Recreational Drugs? No MIGRATION.643 7555155 Information not available 12/29/2022 Do You Use Sunscreen Routinely? No MIGRATION.439 4940159 Information not available 12/29/2022 Has Tobacco Cessation Counseling Been Provided? No MIGRATION.177 9492734 Information not available 12/29/2022 How Many Years Have You Smoked Tobacco? 0 MIGRATION.361 8349016 Information not available 12/29/2022 Have You Recently Traveled Abroad? No MIGRATION.354 1946522 Information not available 12/29/2022 Do You Have Any Dietary Restrictions? No MIGRATION.606 0385479 Information not available 12/29/2022 Do You Or Have You Ever Used Any Other Forms Of Tobacco Or Nicotine? No MIGRATION.447 3854602 Information not available 12/29/2022 Sex: Female Functional Status Question Answer Note LastModified by [facility] Details LastModified Time Do you have difficulty walking or climbing stairs? No MIGRATION.[id number] 026 Information not available 12/29/2022 Do you have transportation difficulties? No MIGRATION.3114454 026 Information not available 12/29/2022 Are you able to walk? YESWOREST MIGRATION.0341715 026 Information not available 12/29/2022 Do you have difficulty doing errands alone? No MIGRATION.8974281 026 Information not available 12/29/2022 Are you able to care for yourself? Yes MIGRATION.7892477 026 Information not available 12/29/2022 Do you have difficulty dressing or bathing? No MIGRATION.7886954 026 Information not available 12/29/2022 What is your exercise level? Occasional MIGRATION.8672544 026 Information not available 12/29/2022 Mental Status Question Answer Note LastModified by [facility] Details LastModified Time Do you have difficulty concentrating, remembering or making decisions? No MIGRATION.[id number] 6 Information not available 12/29/2022 Family History Relationship Description Onset Age of this Age Resolved Age Notes LastModified by Organization Details LastModified Time Mother Heart disease MIGRATION.267 [id number] Not available 12/29/2022 06:06:36 Father Heart disease MIGRATION.456 7565285 Not available 12/29/2022 06:06:36 Brother Hereditary factor V deficiency disease MIGRATION.168 0399887 Not available 12/29/2022 06:06:36 Brother Eustachian tube disorder MIGRATION.099 [id number] Not available 12/29/2022 06:06:36 Sister Hereditary factor V deficiency disease MIGRATION.001 9548325 Not available 12/29/2022 06:06:36 Sister Eustachian tube disorder MIGRATION.385 3131571 Not available 12/29/2022 06:06:36 Daughter Eustachian tube disorder MIGRATION.486 [id number] Not available 12/29/2022 06:06:36 Notes:Brother has thick bloo d easy to clot Medical History Condition Response NERVE DISEASE N BLINDNESS N RHEUMATIC FEVER N KIDNEY STONES N BLADDER PROBLEMS N MRSA N OTHER # 1 Y POLIO N LUNG DISEASE/DISORDER N RADIATION / CHEMOTHERAPY N COPD N BLOOD DISEASES N EAR OR HEARING PROBLEMS Y MUMPS N BOWEL PROBLEMS Y DEPRESSION (INCLUDING POST ) Y STROKE/TIA N ULCERS N BENIGN PROSTATIC HYPERPLASIA N MEASLES N MYOCARDIAL INFARCTION N OBESITY N GERD/NAUSEA N ANEURYSM N URINARY/BLADDER/KIDNEY PROBLEMS Y CORONARY ARTERY DISEASE (CAD) N ADDICTION CONCERNS N ENDOMETRIOSIS N Impotence N USE OF BLOOD THINNERS N SKIN PROBLEMS N GASTROINTESTINAL DISORDER N PERIPHERAL VASCULAR DISEASE N MUSCLE,JOINT OR BONE PROBLEMS N GASTROINTESTINAL BLEEDING N BLOOD CLOTS N ASTHMA N CATARACTS N ERECTILE DYSFUNCTION N VARICOSITIES N GI PROBLEMS N Low Testosterone N INFERTILITY N AIDS/HIV N CHEMOTHERAPY / RADIATION N LIVER DISEASE N MALE HYPOGONADISM N HYPERTENSION Y Deficiency Y ANXIETY DISORDER N BLOOD TRANSFUSION N ANEMIA/BLOOD DISORDER N CHRONIC EAR INFECTIONS N BRONCHITIS N TUBERCULOSIS N GLAUCOMA N DIVERTICULITIS N SLEEP APNEA N CHICKENPOX N INFECTIOUS DISEASE N HEART ARRHYTHMIA N PROSTATE N INSOMNIA Y HIGH CHOLESTEROL / HYPERLIPIDEMIA Y EYE PROBLEMS N EDEMA N CHRONIC PAIN SYNDROME N CAROTID BLOCKAGE N CONSTIPATION N BACK / NECK PROBLEMS N HAVE YOU BEEN HOSPITALIZED OR SEEN IN [facility] IN THE PAST YEAR ? N ATHEROSCLEROSIS N BREAST PROBLEMS N DIALYSIS N ECZEMA N OSTEOPOROSIS N ARTHRITIS N APPENDICITIS N DIABETES, TYPE N BAD TEETH N ENT Y HEARTBURN / REFLUX N AFIB N AUTISM SPECTRUM DISORDER (ASD) N HEPATITIS / LIVER DISEASE N GOUT N ALZHEIMER'S DISEASE N SLEEP DISORDER N Brain Problems N HERPES N DEMENTIA N HEADACHES/MIGRAINES N SEIZURES/EPILEPSY N VASCULAR DISEASE N PACEMAKER N Blood Disorder N DIZZINESS Y HEART DISEASE/HEART PROBLEMS Y KIDNEY DISEASE N MULTIPLE SCLEROSIS N CARDIAC ARRHYTHMIA N CANCER: SPECIFY N ATRIAL FIBRILLATION N Gall Stones N PULMONARY EMBOLISM N AUTOIMMUNE DISEASE N Gynecological History Statement/Question Response Date of Last Pap Date of Last Mammogram 11/03/2020 Current Control Method Hysterectom y Date of Last Colonoscopy 07/20/2013 Most Recent Bone Density 11/03/2020 Obstetrics History GPAL:G 0 P 0 0 0 0 Immunizations Vaccine Type Date Status Note Provider Nam e and Address Organization Details Recorded Time Influenza, split virus, trivalent, preservative 3 completed [facility] 04:24:12 COVID-19, mRNA, LNP-S, PF, 30 mcg/0.3 mL dose 1 completed [facility] 11[facility]15[facility]23 04:24:12 COVID-19, mRNA, LNP-S, PF, 100 mcg/0.5mL dose or 50 mcg/0.25mL dose 1 completed [facility] 11/15/2023 04:24:12 COVID-19, mRNA, LNP-S, PF, 100 mcg/0.5mL dose or 50 mcg/0.25mL dose 1 completed [facility] 11/15/2023 04:24:12 Influenza, split virus, quadrivalent, preservative 0 completed [facility] 11/15/2023 04:24:12 Influenza, split virus, quadrivalent, preservative 7 completed [facility] 11/15/2023 04:24:12 influenza, unspecified formulation 2 completed [facility] Available [facility] 11/15/2023 04:24:12 Influenza, split virus, trivalent, preservative 3 completed [facility] 11/15/2023 04:24:12 pneumococcal polysaccharide PPV23 1 completed [facility] 11/15/2023 04:24:12 Pneumococcal conjugate PCV 13 9 completed Not Available [facility] 11/15/2023 04:24:12 zoster live 6 completed [facility] Available [facility] 11/15/2023 04:24:12 Past Encounters Encounter ID Performer Location Encounter Start Date Encounter Closed Date Diagnosis/Indication Diagnosis SNOMED-CT Code Diagnosis ICD10 Code Diagnosis Note [id number] [facility] [address] [facility] [address] [place] [address] 02/16/2021 00:00:00 02/21/2021 16:49:19 [id number] [facility] E[facility] [place] [address] [place] [address], [place] [address] 02/25/2021 00:00:00 02/25/2021 15:22:12 [id number] [facility] [address] [facility] [address] [place] [address] 03/03/2021 00:00:00 03/03/2021 20:53:44 [id number] [facility] [place] [address] [place] [address] 04/02/2021 00:00:00 04/02/2021 20:30:10 [id number] [facility] [place] [address] [place] [address] 05/14/2021 00:00:00 05/14/2021 22:24:01 [id number] [facility] [place] [address] [place] [address] 07/01/2021 00:00:00 07/01/2021 12:54:48 [id number] [facility] [place] Ann [address] [place] [address] 07/14/2021 00:00:00 07/14/2021 10:37:29 [id number] [facility] [place] [address] [place] [address] 08/11/2021 00:00:00 08/11/2021 14:43:08 [id number] [facility] [place] [address] [place] [address] 09/10/2021 00:00:00 09/12/2021 20:20:10 [id number] [facility] [place] [address] [facility] [place] [address] 01/07/2022 00:00:00 01/30/2022 22:40:22 [id number] [facility] [place] [address] [facility] y , [place] [address] 05/06/2022 00:00:00 05/06/2022 13:39:03 [id number] [facility] [place] [address] [place] [address] 08/31/2022 00:00:00 08/31/2022 12:45:08 [id number] [facility] [place] [address] [place] [address] 09/30/2022 00:00:00 09/30/2022 12:34:29 [id number] [facility] [place] [address] [facility] y , [place] [address] 11/04/2022 00:00:00 11/21/2022 21:36:08 [id number] Sony Plascencia MD [facility] [place] [address] [place] [address] [place] [address] 03/03/2023 10:56:41 03/03/2023 12:03:33 Benign essential hypertension 7149998 I10 Postmenopausal state 764 20378 Z78.0 Screening for malignant neoplasm of colon 376897447 Z12.11 Chronic constipation 236 224458 K59.09 [id number] Sony Plascencia MD [facility] [place] [address] [facility] [place] [address] 08/23/2023 14:23:58 08/23/2023 15:15:19 Benign essential hypertension 6006880 I10 Chronic constipation 236 128223 K59.09 Pure hypercholesterolemia 451291270 E78.00 Insomnia 177549614 G47.0 0 [id number] Sony Plascencia MD [facility] [place] [address] [place] [address] [place] [address] 09/08/2023 13:58:48 09/08/2023 15:08:06 Bradycardia 56845822 R00.1 Edema of l ower extremity 938314811 R60.0 Pain of le ft knee joint 5605902657 14014 M25.248 [id number] Sony Plascencia MD [facility] [place] [address] [place] [address] [place] [address] 09/13/2023 15:43:38 09/13/2023 16:50:12 Sciatica 77160815 M54.32 Essential hypertension 21199732 I10 [id number] Sony Plascencia MD [facility] Internal Med [place] [address] [place] [address] [place] [address] 09/29/2023 14:38:06 09/29/2023 16:47:50 Paresthesia of lower extremity 250372187 R20.2 Bradycardia 42294583 R00 .1 [id number] JASMINA Mae [facility] ENT [place] [address] [place] [address] 11/01/2024 11:55:09 11/01/2024 12:45:58 Otitis media 93376820 H66.91 Impacted c erumen of bilateral ears 3412440232 137598 H61.23 cerumen impaction removed successful ly with irrigation Health Concerns Section Related Observation LastModified by Organization Detai ls LastModified Time None Recorded Concern Status LastModified by Organization Details LastModified Time None Recorded Advance Directives Directive N: information provided to p atient Payers Encounter Date Sequence Insurance Name Policy Number Policy Bee Covered Member ID Bee Member ID Guarantor Name 08/23/2023 1 [facility] (MEDICARE REPLACEMENT/A DVANTAGE - HMO) [id number] Christelle Flower [id number] Christelle Kennedy Flower 09/08/2023 1 [facility] (MEDICARE REPLACEMENT/A DVANTAGE - HMO) [id number] Christelle Flower [id number] Christelle Kennedy Flower 09/13/2023 1 [facility] (MEDICARE REPLACEMENT/A DVANTAGE - HMO) [id number] Christelle Kennedy Flower [id number] Christelle C Flower 09/29/2023 1 [facility] (MEDICARE REPLACEMENT/A DVANTAGE - HMO) [id number] Christelle C Flower [id number] Christelle C Flower 11/01/2024 1 [facility] (MEDICARE REPLACEMENT/A DVANTAGE - HMO) [id number] Christelle C Flower [id number] Christelle C Flower Notes Date Note Type Note Provider Name and Address Organization Details Recorded Time 08/23/2023 text/html 1. Hypertension no headache no dizziness2. Insomnia zolpidem doing fine no side effects3. Tremor propranolol4. Dyslipidemia taking atorvastatin5. Had colonoscopy cecal polyp we did not get confirmation from GI whether 5 for 10 year follow-up Sony Plascencia MD [address], [place], [address], [employer] 08/23/2023 22:42:17 09/08/2023 text/html She went to her neurologist office her heart rate was 33 asymptomatic they did do anything about it she called me and I told her to cut down on her propranolol to 20 mg a day she has not had any for syncope or presyncope no chest pain but 4 days ago she now describes some pain medially on the knee and succumb [place] leave feels a little bit numb extending into the antral lateral reynolds area there is no pain in her leg when she walks. She sought chiropractic help with felt it was not a problem with her back Sony Plascencia MD [address], [place], [address], [employer] 09/09/2023 13:07:42 09/13/2023 text/html Having not pain in left buttock down into the left thigh where she has some numbness hypertension creeping up a little bit heart rate has come up we have stopped her beta-destinee because of junctional rhythm Sony Plascencia MD [address], [place], [address], [employer] 09/13/2023 22:37:37 09/29/2023 text/html Pulse rate is co me up blood pressure has stayed appropriate shaking maybe a little bit worse as she has come off the propranolol still has the numbness in the leg and now a little bit of pain in her back MRI scheduled for tomorrow Sony Plascencia MD [address], [facility] [address], [place], [address], [facility] [employer] [facility] 09/30/2023 18:23:42 11/01/2024 text/html This patient has a past medical history significant for adrenal adenoma, vitamin-D deficiency, hearing loss, hypertension, Eustachian tube dysfunction, and hiatal hernia who presents to the office with a complaint left ear congestion onset approximately one-week ago. She does report that she wears a hearing aid to the left ear only. She notes that she does have a history with an ear infection to the right ear and suspects this might be the concern for her left ear. She does note that yesterday she had bent over and when she had stood up she did develop some vertigo. Does note that she has been more off-balance as of recently. JASMINA Mae [address] [facility] [address], [place], [address], [facility] [employer] [facility] [employer] [facility] 11/01/2024 12:45:29 OBGyn Episode No OBEpisode recorded.
--- OUTSIDE RECORDS SUMMARY | 2025-02-06 16:56 | XMS_ITS | Data Portability ---
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 Patient will come back in a year unless there are new symptoms. [email or web address] Not available 06/04/2024 12:31:12 Plan of Treatment Reminders Order Date Submit Date Provider Last Modified By Organization Details Last Modified Time Details Appointments None recorded. Lab factor V activity, plasma 2022 023 [facility] (Lab), [address], [place], [address], 3 06:08:20 unlisted lab - factor V (leiden) mutation 2022 023 [facility] (Lab), [address], [place], [address], 3 06:08:19 Referral None recorded. Procedures None recorded. Surgeries None recorded. Imaging MAMMO, screening, digital, bilateral 2023 024 [facility], [address], [place], [address], 5 05:01:19 Medication Orders estradiol 0.025 mg/24 hr weekly transdermal patch 2023 024 [id number], [address], [place], [place], [id number], 4 15:15:11 Addyi 100 mg tablet 2022 023 [email or web address] [facility], [address], [address], [place], [address], 4 14:08:22 estradiol 0.5 mg tablet 2022 023 [id number], [address], [place], [place], [id number], 4 14:47:01 Patient TargetsNo targets recorded. Patient InstructionsNo instructions recorded. Reason for Referral None Reported. Procedures Surgical History Date Name Laterality Status Provider Name and Address Organization Details Recorded Time 10/31/19 23 Date of Last Mammogram completed [facility] 03/03/2023 14:49:04 10/31/19 22 procedure on ear completed [facility] 03/03/2023 14:53:50 10/31/19 14 Knee arthroscopy/surg emily completed [facility] 03/03/2023 14:53:33 01/30/20 13 completed [facility] 03/03/2023 14:49:04 01/30/20 13 Date of Last Colonoscopy completed [facility] 03/03/2023 14:49:04 10/31/18 79 Total Hysterectomy completed [facility] 03/03/2023 14:53:16 laparoscopic bilateral salpingo-oophore ctomy completed EARNESTINE Lomeli [address], [place], [address], [facility] 06/04/2024 14:49:59 Imaging Results None recorded. Procedure Notes None recorded. Medical Equipment None Reported. Allergies No known drug allergies Medications Name Sig Start Date Stop Date Status Note LastModified by Organization Details LastModified Time atorvastati n 40 mg tablet active Not Available Not Available Not Available primidone 50 mg tablet TAKE 1 TABLET BY MOUTH DAILY DIRECTED active Not Available Not Available No t Available doxycycline hyclate 100 mg capsule TAKE 1 CAPSULE BY MOUTH TWICE DAILY FOR 7 DAYS 05/04 completed Not Available Not Available Not Available azithromyci n 250 mg tablet TAKE 2 TABLETS BY MOUTH FOR 1 DAY THEN TAKE 1 TABLET BY MOUTH DAILY FOR 4 DAYS 06/04 completed Not Available Not Available Not Available benzonatate 200 mg capsule TAKE 1 CAPSULE BY MOUTH THREE TIMES DAILY NEEDED 03/03 completed Not Available Not Available Not Available amlodipine 5 mg tablet TAKE 1 TABLET BY MOUTH EVERY DAY active Not Available Not Available No t Available sulfamethox azole 800 mg-trimetho prim 160 mg tablet TAKE 1 TABLET BY MOUTH TWICE DAILY 03/03 completed Not Available Not Available Not Available ketorolac 10 mg tablet TAKE 1 TABLET BY MOUTH EVERY 6 HOURS NEEDED 03/03 completed Not Available Not Available Not Available propranolol 40 mg tablet 06/04 completed Not Available Not Available Not Available estradiol 0.025 mg/24 hr weekly transdermal patch Apply 1 patch every week by transderm al route. 2023 active Not Available Not Available Not Avai lable omeprazole 20 mg capsule,del ayed release active Not Available Not Available Not Available zolpidem 5 mg tablet TAKE 1 TABLET BY MOUTH EVERY DAY AT BEDTIME active Not Available Not Available No t Available estradiol 0.5 mg tablet TAKE 1 TABLET BY MOUTH EVERY DAY 06/04 completed Not Available Not Available Not Available zolpidem 10 mg tablet TAKE 1 TABLET BY MOUTH AT BEDTIME NEEDED 05/04 completed Not Available Not Available Not Available methylpredn isolone 4 mg tablets in a dose pack FOLLOW PACKAGE DIRECTION S 06/04 completed Not Available Not Available Not Available propranolol 20 mg tablet 06/04 completed Not Available Not Available Not Available ciprofloxac in 0.3 %-dexametha sone 0.1 % ear drops,suspe nsion SHAKE LIQUID AND INSTILL 4 DROPS TO AFFECTED EAR TWICE DAILY FOR 7 DAYS 03/03 completed Not Available Not Available Not Available nitrofurant oin monohydrate /macrocryst als 100 mg capsule TAKE 1 CAPSULE BY MOUTH EVERY 12 HOURS FOR 5 DAYS 03/03 completed Not Available Not Available Not Available 8 Hour Pain Reliever 650 mg tablet,exte nded release active Not Available Not Available Not Available Addyi 100 mg tablet 06/04 completed Not Available Not Available Not Available Vitals Date Recorded Body height Body mass index (BMI) Body weight Systolic blood pressure Diastolic blood pressure Provider Name and Address Organization Details Last Updated DateTime 03/03/2023 160.02 cm 26.9 kg/m2 66950.04 g 120 mm[Hg] 70 mm[Hg] Mayi Zuniga [facility] 14:48:02 Date Recorded Body height Body mass index (BMI) Body weight Provider Name and Address Organization Details Last Updated DateTime 05/04/2023 160.02 cm 26.4 kg/m2 09722.26 g Ely Marcus [facility] 05/04/2023 15:03:36 Date Recorded Systolic blood pressure Diastolic blood pressure Provider Name and Address Organization Details Last Updated DateTime 05/04/2023 132 mm[Hg] 82 mm[Hg] Gwen Jamison, [facility] [address], [place], [address], [facility] 05/04/2023 15:05:32 Date Recorded Body height Body mass index (BMI) Body weight Systolic blood pressure Diastolic blood pressure Provider Name and Address Organization Details Last Updated DateTime 06/04/2024 160.02 cm 25 kg/m2 41031.52 g 130 mm[Hg] 63 mm[Hg] Maryuri Berg [facility] 14:05:07 Social History Question Answer Notes LastModified by Organizat ion Details LastModified Time Tobacco Smoking Status Never Smoker Ely Marcus null, [facility] 05/04/2023 15:03:50 What Is Your Level Of Alcohol Consumption? Occasional [email or web address] Information not available 03/03/2023 Are You Blind Or Do You Have Difficulty Seeing? No [email or web address] Information n ot available 03/03/2023 What Is Your Level Of Caffeine Consumption? Moderate [email or web address] Information not available 03/03/2023 How Much Tobacco Do You Chew? None [email or web address] Information not available 03/03/2023 In The 14 Days Before Symptom Onset, Have You Had Close Contact With A Laboratory-confirm ed COVID-19 While That Case Was Ill? No [email or web address] Information n ot available 03/03/2023 In The 14 Days Before Symptom Onset, Have You Had Close Contact With A Person Who Is Under Investigation For COVID-19 While That Person Was Ill? No [email or web address] Information not available 03/03/2023 Have You Been To An Area Known To Be High Risk For COVID-19? No Information not available 03/03/2023 Are You Deaf Or Do You Have Serious Difficulty Hearing? Yes [email or web address] Information not available 06/04/2024 What Type Of Diet Are You Following? REGULAR [email or web address] Information n ot available 03/03/2023 What Is The Highest Grade Or Level Of School You Have Completed Or The Highest Degree You Have Received? [id number] [email or web address] Information not available 03/03/2023 What Is Your Occupation? Retired [email or web address] Information not available 03/03/2023 Are There Any Guns Present In Your Home? No Information not available 03/03/2023 Have You Ever Been Counseled For Unhealthy Alcohol Use? No Information not available 05/04/2023 Do You Use Protection During Sex? No [email or web address] Information not available 03/03/2023 Do You Use Your Seat Belt Or Car Seat Routinely? Yes [email or web address] Information not available 03/03/2023 Do You Have Smoke And Carbon Monoxide Detectors In Your Home? Yes Information not available 03/03/2023 How Much Tobacco Do You Smoke? No [email or web address] Information not available 03/03/2023 Do You Feel Stressed (tense, Restless, Nervous, Or Anxious, Or Unable To Sleep At Night)? [id number] Information not available 05/04/2023 Do You Use Any Illicit Or Recreational Drugs? No [email or web address] Information not available 03/03/2023 Do You Use Sunscreen Routinely? No [email or web address] Information not available 03/03/2023 Has Tobacco Cessation Counseling Been Provided? No Information not available 05/04/2023 Have You Used IV Drugs? No [email or web address] Information not available 03/03/2023 Do You Or Have You Ever Used Any Other Forms Of Tobacco Or Nicotine? No Information not available 05/04/2023 Sex: Unknown Functional Status Question Answer Note LastModified by Organizat ion Details LastModified Time Do you have difficulty walking or climbing stairs? No Information not available 05/04/2023 Are you able to walk? YESWOREST [email or web address] Information not available 03/03/2023 Are you able to care for yourself? Yes Information not available 05/04/2023 Do you have difficulty dressing or bathing? No Information not available 05/04/2023 What is your exercise level? Occasional [email or web address] Information not available 03/03/2023 Mental Status None recorded. Family History Relationship Description Onset Age of this Age Resolved Age Notes LastModified by Organization Details LastModified Time Mother Heart disease [email or web address] Not available 03/03 14:49:04 Maternal Grandmother Heart disease Not available 03/03 14:49:04 Sister Malignant tumor of breast [email or web address] Not available 03/03 14:49:04 Sister Malignant tumor of lung Not available 03/03 14:49:04 Sister Factor V Leiden mutation [email or web address] Not available 2023 13:56:48 Father Heart disease [email or web address] Not available 03/03 14:49:04 Brother Factor V Leiden mutation [email or web address] Not available 2023 13:56:48 Brother Malignant tumor of lung [email or web address] Not available 2023 14:09:06 Notes:Patient has never been tested for Factor V. Medical History Condition Response Allergies (Food, seasonal, environmental ) Y Other Y Breast Cancer N Drug/Latex Allergies/Reactions N Blood Transfusion N Dermatologic Disorders N Lung Disease N Defects or Inherited Disease N Breast Problem N Gestational Diabetes N Hematologic disorders N Anesthesia Complications N History of STI N Deep Vein Thrombosis N Polycystic ovary syndrome N Anxiety Disorder N Autoimmune disease N Arthritis N Infertility N Polyps N Acid Reflux (GERD) Y History of abnormal pap N Cancer N Stroke N Varicosities N Neurologic/Epilepsy N Endometriosis N High Cholesterol Y Headaches N Fibromyalgia N Kidney Disease N Heart Problems N Kidney or Bladder Problems N Thyroid Problems N GI Problems N Eating Disorder N Anemia N Art (IVF or FET) N Psychiatric Illness N Ovarian Cancer N Diabetes N Pulmonary (TB, Asthma) N Hepatitis/Liver Disease N No Past Medical History N Eczema N Urinary Tract Infection N Abuse/Domestic Violence N Asthma N Trauma/Violence N Depression/ depression N Heart Disease N Pre-Eclampsia N Hypertension Y Osteoporosis N Thrombophilias N Gynecological History Statement/Question Response Abnormal Pap N Date of Last Mammogram 10/31/2022 Date of LMP 05/31/1979 On BCP's at Conception? N N Was last menstrual period normal N STIs/STDs N HPV Vaccine N Current Control Method Hysterectom y Age at First Child 16 Date of Last Colonoscopy 01/29/2013 Sexually Active? Y Age of first menstrual cycle 11 Date of Last Pap Smear Sexual Problems? N LMP Approximate 01/29/2013 Y Obstetrics History GPAL:G 1 P 0 0 0 2 Type Value Multiple Births 1 Living 2 Total 1 Past Encounters Encounter ID Performer Location Encounter Start Date Encounter Closed Date Diagnosis/Indication Diagnosis SNOMED-CT Code Diagnosis ICD10 Code Diagnosis Note [id number] [facility] [address] [address] 03/03/2023 14:26:52 03/03/2023 15:20:22 Postmenopausal osteopenia [id number] M85.80 Counseled on the following: Females >10yrs past menopause (& age 60yo+) are generally not good candidates for starting (1st use) systemic HT. Decisions to continue systemic HT > a decade past menopause (or past age 60yo) requires balancing R/B's; & individual ized needs. Non-hormon al options may be more appropriat e for females >10yrs past menopause. We discussed going from Estradiol 1mg down to estradiol 0.5mg and then eventually wean off this therapy due to risks.Brandon mmended essence landers being tested for Factor V-since brother & sister have it; even if she's had no events that would prompt suspicion of this issue; we would use this informatio n to further make health decisions. RTO x 2mos to ensure doing well. Time spent in visit is a total of 30 mins with at least 50% of visit consisting of counseling and review of plan of care. [id number] Gwen Jamison , [facility] [address] [address] 05/04/2023 14:56:24 05/04/2023 15:50:24 Postmenopausal osteopenia [id number] M85.80 Med check for Estradiol 0.5mg for menopausal sx's & post-osteo penia. She reports she is slowly adjusting to this decrease in her dosage.It is disrupting her daytime with 2-3 hot flashes vs none; sleep is disrupted but feels like this is her norm anyway. She is managing it but is hoping her body will continue to adjust to these changes.Elena rivera again verbalized understand ing of risks of this therapy past age 60yo as previously discussed; she would like to continue for next 6mos to 12mos; and then when returns we try further decreasing this dosage. She understand s that if her blood work returns + for factor V we will need to d/c this therapy immediatel y as this is a contraindi cation. Time spent in visit is a total of 26 mins with at least 50% of visit consisting of counseling and review of plan of care. Family his tory of Factor V Leiden mutation [id number] Z83.2 Will reach out with results.Fa shavonne members have tested positive.W ants to ensure she does not carry this gene. Lack or lo ss of sexual desire [id number] F52.0 Discussed trial of Addyi.Unde rstands use in post-menop ausal female is off label but there is some current research to support it's use in this group.RTO x 4wks f/u med checkRx sent to [facility]. Counseled in depth.DO NOT TAKE AMBIEN IF USING THIS MEDICATION DUE TO DRAMATIC EDUCATION PROGRAM SPECIALIST DEPRESSION !!!Underst anding verbalized & will d/c Ambien. Round Boner of Addyi:Your risk of severe low blood pressure and fainting (loss of consciousn ess) is increased if you take ADDYI and:drink alcohol close in time to when you take your ADDYI dose.Wait at least 2 hours after drinking 1 or 2 standard alcoholic drinks before taking ADDYI at bedtime.Ex amples of 1 standard alcoholic drink include: one 12-ounce regular beer, 5 ounces of wine, 1.5 ounces of distilled spirits or shotIf you drink 3 or more standard alcoholic drinks in the evening, skip your ADDYI dose at bedtime.Af ter you have taken your ADDYI at bedtime, do not drink alcohol until the following day.take certain prescripti on medicines, over-the-c ounter medicines, or herbal supplement s. Do not take or start taking any prescripti on medicines, over-the-c ounter medicines, or herbal supplement s while taking ADDYI until you have talked with your doctor. Your doctor will tell you if it is safe to take other medicines or herbal supplement s while you are taking ADDYI.have liver problems. Do not take ADDYI if you have liver problems.I f you take ADDYI and you feel lightheade d or dizzy, lie down right away. Get emergency medical help or ask someone to get emergency medical help for you if the symptoms do not go away or if you feel like you could faint (lose consciousn ess). If you faint (lose consciousn ess), tell your doctor as soon as you can. What should I avoid while taking ADDYI?Do not drink alcohol close to the time you take your ADDYI dose because this increases your risk of severe low blood pressure and fainting (loss of consciousn ess).Do not drive, operate machinery, or do things that require clear thinking until at least 6 hours after you take ADDYI and until you know how ADDYI affects you.Do not drink grapefruit juice if you take ADDYI. Drinking grapefruit juice during your treatment with ADDYI increases your risk of severe low blood pressure and fainting (loss of consciousn ess).You should not take the herbal supplement s Cassandra s Wort, ginkgo, or resveratro l or certain over-the-c ounter medicines such as cimetidine until you talk to your doctor. Taking ADDYI with these herbal supplement s and over-the-c ounter medicines may increase your risk of low blood pressure, fainting (loss of consciousn ess), and sleepiness . What are the possible side effects of ADDYI?COREY I can cause serious side effects, including: Sleepiness is a common side effect of ADDYI and can be serious. Taking ADDYI can increase your risk of sleepiness if taken during waking hours, if you drink alcohol, or take certain medicines or herbal supplement s.Low blood pressure and fainting (loss of consciousn ess) can happen when you take ADDYI even if you do not drink alcohol or take other medicines or herbal supplement s. Your risk of low blood pressure and fainting (loss of consciousn ess) is increased if ADDYI is taken during waking hours, if you drink alcohol within 2 hours of taking ADDYI, or if you take certain medicines or herbal supplement s.The most common side effects of ADDYI include:Di zzinessDif ficulty falling asleep or staying asleepNaus eaDry mouthTired ness [id number] EARNESTINE Lomeli [place] [address] [address] 06/04/2024 13:56:29 06/04/2024 17:57:25 Gynecologic examination [id number] Z01.419 WWEno pap neededdecl ined STI screenmamm ogram order givendexa UTD / PCPcolonos copy UTD / PCProutine labs UTD / PCP Do monthly self breast exams. It is advised to get annual flu shot in the fall and she could obtain at local pharmacy. If you haven't received the Tdap vaccine in the last 10 years you should obtain one as well. Have mammogram yearly, bone density every 2-3 years and stay up to date on colon cancer screening. Engage in regular exercise. Avoid tobacco and illicit drugs. This lifestyle behavior pattern will lead to less health conditions and longer life span. If BMI greater than 25 dietary consult advised. Questions have been answered. Screening for malignant neoplasm of breast [id number] Z12.39 Hormone re placement therapy [id number] Z79.890 Discussed ERT in-depth Counseled on the following: Females >10yrs past menopause (& age 60yo+) are generally not good candidates for starting (1st use) systemic HT. Decisions to continue systemic HT > a decade past menopause (or past age 60yo) requires balancing R/B's; & individual ized needs. Non-hormon al options may be more appropriat e for females >10yrs past menopause. She would like to continue ERT at this timediscus sed switching to transderma l delivery vs oral d/t medical hx and agept is agreeable to this plan. Rx sent, r/b/a reviewed, questions answeredme d check in 3-4 months Menopausal flushing 1983 52570 N95.1 Health Concerns Section Related Observation LastModified by Organization Detai ls LastModified Time None Recorded Concern Status LastModified by Organization Details LastModified Time None Recorded Advance Directives Directive None Recorded Payers Encounter Date Sequence Insurance Name Policy Number Policy Bee Covered Member ID Bee Member ID Guarantor Name 03/03/2023 1 [facility] (MEDICARE REPLACEMENT/A DVANTAGE - HMO) [id number] Christelle C Flower [id number] Christelle Flower 05/04/2023 1 [facility] (MEDICARE REPLACEMENT/A DVANTAGE - HMO) [id number] Christelle C Flower [id number] Christelle Flower 06/04/2024 1 [employer] (MEDICARE REPLACEMENT/A DVANTAGE - HMO) [id number] Christelle C Flower [id number] Christelle Flower Notes Date Note Type Note Provider Name and Address Organization Details Recorded Time 03/03/2023 text/html Here today to discuss continuing Estradiol therapy that she has been on since her hysterectomy in 1978 for non-cancerous indications.Tried to wean off and sx's significantly return.Hot flashes/night sweats/mood labile.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 We reviewed her health hx & updated her chart as reported. Gwen Jamison, [facility] [address], [place], [address], [facility] 03/03/2023 15:18:34 05/04/2023 text/html Here today for medication check. Gwen Jamison [facility] [address], [place], [address], [facility] 05/04/2023 15:31:56 06/04/2024 text/html Annual Manager Of Change Post-MenopausalRepor alessandra bypatient.Menopausal Symptoms:no menopausal symptoms; normal vaginal lubrication Vaginal Bleeding:history of menopause having occurred; no history of post menopausal bleeding Urinary Symptoms:no hematuria; no incontinence; no nocturia; no urinary frequency Vulva:no genital lesion; no vulvar atrophy Vagina:normal vaginal discharge; no vaginal atrophy Breast:no breast lump; no nipple discharge; no breast pain Sexual Complaints:no sexual complaints Psychological Symptoms:no depression; no anxiety Preventive Measures:encourage regular mammograms starting age 40; encourage self breast examination; encourage regular exerciseNotes:69yo WWEh/o hyst, BSO in 1978 for endometriosisno h/o abnormal paps mammogram last olonoscopy UTD/PCPdexa UTD/PCProutine labs UTD/PCP medical hx : HTN, elevated cholesterol, essential tremors on estradiol 0.5mg tablets for hot flashes/night sweats. Decreased from 1mg to 0.5mg last year. Would like to continue this therapy as she has tried to d/c in the past and continued to have significant hot flashes and night sweats. EARNESTINE Lomeli [address], [place], [address], [facility] 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
--- OUTSIDE RECORDS SUMMARY | 2025-02-06 16:56 | XMS_ITS | Clinical Summary ---
Author Organization [facility] ([email or web address]) Address [address] [place] [address] Care Team Providers Care Skein Inspector Name Role Phone Dipak Plascencia MD Primary Care Provider [phone] Source Comments [facility] ([email or web address]),non-owned Affiliates and Associated Physician Practices is amultiple site organization consisting of ambulatory clinics and hospital sitesin [place], [place] and [place]. This disclosure is being madepursuant to the Care Everywhere program and may not contain all information available regarding this patient. Last updated 18.[facility] ([email or web address]) Allergies Active Allergy Reactions Criticality Noted Date Comments Hmg-Coa-R Inhibitors Rash Medium 02/04/2021 Lisinopril Itching,Rash Medium 03/26/2022 Propoxyphene N-Apap Other High 05/15/2010 Medications * Be aware that medications may not be up to date on this document. Alwaysverify current medications with the patient. Medication Sig Dispensed Refills Start Date End Date Status atorvastatin (LIPITOR) 40 MG tablet Take 1 (one) tablet by mouth Active omeprazole (PRILOSEC) 20 MG capsule Take 1 (one) capsule by mouth Active CALCIUM 600+D3 600-400 MG-UNIT Take 1 (one) tablet by mouth 04/13/2020 Active ASPIRIN 81 PO Take 1 tablet by mouth once daily Active Magnesium Citrate 200 MG TABS Take 1,200 mg by mouth Active amLODIPine (Norvasc) 5 MG tablet Take 1 (one) tablet by mouth once daily Active zolpidem (Ambien) 5 MG tablet Take 1 (one) tablet by mouth Active primidone (Mysoline) 50 MG tabletIndications: Essential Tremor Take 2 (two) tablets by mouth once daily for 30 days Reasons: Fine to Coarse Slow Tremor Affecting Head, Hands & Voice 180 tablet 3 09/19/2024 Active Additional Information Patient taking differently: 50 mgOral DAILY, Indications: Essential Tremor, Informant: Patient, Reported on 12/20/2024 Active Problems Problem Noted Date Diagnosed Date Paresthesia of lower extremity 09/29/2023 Sciatica 09/12/2023 Arthralgia of left knee 09/07/2023 Bradycardia 09/07/2023 Edema of lower extremity 09/07/2023 Cellulitis of lower limb 03/15/2023 024 Kidney stone 12/02/2022 12/01/2023 Low back pain 11/24/2022 12/01/2023 Dysfunction of both eustachian tubes 09/29/2022 12/01/2023 Presbycusis 09/29/2022 12/01/2023 Asymmetrical sensorineural hearing loss 09/29/20 22 12/01/2023 COVID-19 09/14/2022 12/01/2023 Vitamin D deficiency 09/15/2021 Umbilical hernia 09/15/2021 Tremor 09/15/2021 Rib injury 09/15/2021 Pure hypercholesterolemia 09/15/2021 Malaise and fatigue 09/15/2021 Insomnia 09/15/2021 Hiatal hernia 09/15/2021 Adrenal mass 09/15/2021 Benign essential hypertension 09/15/2021 Adrenal adenoma 09/15/2021 Abnormal computed tomography scan 09/15/2021 Chronic constipation 09/12/2021 Eruption due to drug 11/05/2017 Family history of ischemic h eart disease and other diseases of the circulatory system 03/07/2009 Essential (primary) hypertension 02/28/2009 Chest pain, unspecified 02/28/2009 Resolved Problems Problem Noted Date Diagnosed Date Resolved Date Acute sinusitis 12/01/2023 12/01/2023 12/29/2023 Acute urinary tract infection 11/08/2022 12/01/2023 12/15/2023 Cough 09/08/2022 12/01/2023 12/29/2023 Upper respiratory infection 09/15/2021 09/29/2021 Encounters Date Type Department Care Team Description 12/20/2024 11:30 AM EDGE MOLDER Procedure visit [facility] - Neurology [address] [place] [address] Elvia Issa MD Cervical dystonia ; Tremor, essential; Benign head tremor; Imbalance; Bradycardia 12/20/2024 Orders Only [facility] - Neurology [address], [place] [address] Yuliana Brian RN from Last 3 Months Immunizations Name Administration Dates Next Due INFLUENZA VACCINE, TRIV. (AF LURIA, FLUZONE TRIVALENT; 6MO+) (IIV3) 09/18/2013,09/14/2013 Covid Moderna primary monovalent 12+ yr 0.5mL ,12/24/2020 Covid Pfizer primary monoval ent 12+ yr 0.3mL Purple cap 09/05/2021 FLU VACCINE QUAD IIV4 SPLIT 0.25 ML IM ,08/31/2017 INFLUENZA VACCINE 08/02/2022,09/05/2021 PNEUMOCOCCAL PPSV23 12/18/2020 Pneumococcal Pcv13 Conj 11/30/2018 ZOSTER VACCINE, LIVE 11/20/2015 Social History Tobacco Use Types Packs/Day Years [...] AM CDT Sexual Orientation Not on file Last Filed Vital Signs Vital Sign Reading Time Taken Comments Blood Pressure 141/74 12/20/2024 11:11 AM EDGE MOLDER Pulse 66 12/20/2024 11:11 AM EDGE MOLDER Temperature 36.7 C (98 F) 04/06/2024 1:12 PM CDT Respiratory Rate - - Oxygen Saturation 96% 09/19/2024 8:20 AM EDGE MOLDER Inhaled Oxygen Concentration - - Weight 64.4 kg (142 lb) 12/20/2024 11:11 AM EDGE MOLDER Height 165.1 cm (5' 5 ) 12/20/2024 11:11 AM EDGE MOLDER Body Mass Index 23.63 12/20/2024 11:11 AM EDGE MOLDER Plan of Treatment Health Maintenance Due Date Last Done Comments BONE DENSITY TESTING 1955 COLOGUARD (AGES 45-75) - COLON CA SCREENING 1955 COLON MONITORING 1955 COLONOSCOPY - COLON CA SCREENING 1953 CT COLONOGRAPHY - COLON CA SCREENING 1955 Colorectal Cancer Screening 1955 FIT - COLON CA SCREENING 1953 FLEX SIG - COLON CA SCREENING 1955 HEPATITIS C SCREENING 05/07/1971 DTAP/TDAP/TD VACCINES (1 - Tdap) 1972 Respiratory Syncytial Virus (RSV) Vaccine Pt: or over 60 yrs (1 - Risk 60-74 years 1-dose series) 2013 ZOSTER VACCINE (2 of 3) 01/15/2016 11/20/2015 MAMMOGRAM 04/02/2018 04/02/2016, 12/29, 08/06/2013 COVID-19 VACCINE ( season) 2024 09/05/2021, 01/21/2021, 12/24/2020 DEPRESSION SCREENING 10/31/2024 03/13/2024 MEDICARE AWV CALENDAR YEAR 2024 INFLUENZA VACCINE (Season Ended) 2025 08/02/2022, 09/05/2021, 10/31/2019, Additional history exists PNEUMOCOCCAL VACCINE 50+ Completed 12/18/2020, 11/02 HEPATITIS B VACCINE Aged Out No longe r eligible based on patient's age to complete this topic HIB VACCINE Aged Out No longer eligi ble based on patient's age to complete this topic HPV VACCINE Aged Out No longer eligi ble based on patient's age to complete this topic MENINGOCOCCAL (Group B) VACCINE SHARED DECISION-MAKING Aged Out No longer eligible based on patient's age to complete this topic MENINGOCOCCAL GROUPS A/C/Y/W VACCINE Aged Out No longer eligible based on patient's age to complete this topic Care Teams Skein Inspector Relationship Specialty Start Date End Date Dipak Plascencia MD PCP - General 03/25/21
--- OUTSIDE RECORDS SUMMARY | 2025-02-06 16:56 | XMS_ITS | Clinical Summary ---
Author Organization [facility] [address] Address [address] [place] [address] Care Team Providers Care Financial Officer Name Role Phone Dipak Plascencia MD Primary Care Provider Allergies Active Allergy Reactions Criticality Noted Date Comments Lisinopril Itching,Rash Medium 03/26/2022 Propoxyphene-Acetaminophen Other (See comments) High 05/15/2010 Amuoxrh-Qop-Vua Reductase Inhibitors Rash Medium 03/26/2022 Medications No known medications Active Problems No known active problems Social History Tobacco Use Types Packs/Day Years Used Date Smoking Tobacco: Never Assessed Comments Unknown Sex and Gender Information Value Date Recorded Sex Assigned at Not on file Legal Sex Female 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 Gender Identity Not on file Sexual Orientation Not on file Obstetrics History Last Filed Vital Signs Vital Sign Reading Time Taken Comments Blood Pressure 124/86 03/26/2022 8:15 AM CDT Pulse 63 03/26/2022 8:15 AM CDT Temperature 36.9 C (98.5 F) 03/26/2022 8:15 AM CDT Respiratory Rate 16 03/26/2022 8:15 AM CDT Oxygen Saturation 97% 03/26/2022 8:15 AM CDT Inhaled Oxygen Concentration - - Weight 70.3 kg (155 lb) 03/26/2022 8:15 AM CDT Height 165.1 cm (5' 5 ) 03/26/2022 8:15 AM CDT Body Mass Index 25.79 03/26/2022 8:15 AM CDT Plan of Treatment Health Maintenance Due Date Last Done Comments Colon Cancer Screening-Colonoscopy 1955 Depression Screening 1955 Fall Risk Assessment 1955 Hepatitis C Screening 1955 Osteoporosis Screening-Bone Density Scan 1953 DTaP/Tdap/Td Vaccine (1 - Tdap) 1964 Hepatitis B Screening 1971 Zoster Vaccine (2 of 3) 01/15/2016 11/20/2015 Breast Cancer Screening-Mammogram 04/02/2017 04/02/2016, 01/16/2015, 08/06/2013 Well Visit 65+ 2018 Influenza Vaccine (#1) 2024 2, 09/05/2021, 10/31/2019, Additional history exists Pneumococcal vaccine 65+ Completed 12/18/2020, 11/02 Procedures Procedure Name Priority Date/Time Associated Diagnosis Comments SCREENING MAMMOGRAM Routine 04/02/2016 1 0:27 AM CDT from Last 3 Months or Most Recently Relevant to Health Maintenance Results * Screening Mammogram (04/02/2016 10:27 AM CDT) Anatomical Region Laterality Modality Breast N/A Mammography 04/02/2016 10:2 7 AM CDT Narrative 04/02/2016 1:20 PM CDT BUDDY COLLINS M.D. FINAL REPORT ACC# Date Time Exam [id number] Apr 02, 2016 10:27:00 [facility] [address] Screening Mamm Bilat Technologist(s): Hailey Almaguer; ; EXAMINATION: Mammogram Technique: Bilateral Full-Field Digital Screening Mammogram was performed. Views obtained: bilateral craniocaudal and bilateral mediolateral oblique. Computer Aided Detection was performed with [employer].3 version 9.3. Mammogram Findings: The present examination has been compared to prior imaging studies performed at [facility] on 01/16/2015, and at [facility] on 08/06/2013 and 08/04/2012. The breasts are almost entirely fatty. There is no suspicious abnormality in either breast. IMPRESSION: Annual screening mammography is recommended. OVERALL FINAL ASSESSMENT: BI-RADS CATEGORY 1: Negative. Requested By: Dictated By: BUDDY COLLINS M.D. on Apr 02 2016 1:20P This document has been electronically signed by: BUDDY COLLINS M.D. on Apr 02 2016 1:20P [id number] Procedure Note Provider, MD Evie - 03/01/2017 BUDDY COLLINS M.D. FINAL REPORT ACC# Date Time Exam [id number] Apr 02, 2016 10:27:00 [facility] [address] Screening Mamm Bilat Technologist(s): Hailey Almaguer; ; EXAMINATION: Mammogram Technique: Bilateral Full-Field Digital Screening Mammogram was performed. Views obtained: bilateral craniocaudal and bilateral mediolateral oblique. Computer Aided Detection was performed with [employer].3 version 9.3. Mammogram Findings: The present examination has been compared to prior imaging studies performed at [facility] on 01/16/2015, and at [facility] on 08/06/2013 and 08/04/2012. The breasts are almost entirely fatty. There is no suspicious abnormality in either breast. IMPRESSION: Annual screening mammography is recommended. OVERALL FINAL ASSESSMENT: BI-RADS CATEGORY 1: Negative. Requested By: Dictated By: BUDDY COLLINS M.D. on Apr 02 2016 1:20P This document has been electronically signed by: BUDDY COLLINS M.D. on Apr 02 2016 1:20P [id number] Historical Provider IMMelyssa MAMMO PROCEDURES Tanvi l Result from Last 3 Months or Most Recently Relevant to Health Maintenance Insurance [facility] MEDICARE ADVANTAGE Care Teams Financial Officer Relationship Specialty Start Date End Date Dipak Plascencia MD PCP - General Internal Medicine 02/17/21
--- OUTSIDE RECORDS SUMMARY | 2025-02-06 16:56 | XMS_ITS | Referral Summary ---
Author Organization [facility] [address] Address [address] [place] [address] Care Team Providers Care Plant Maintenance Worker Name Role Phone Dipak Plascencia MD Primary Care Provider Allergies Active Allergy Reactions Criticality Noted Date Comments Lisinopril Itching,Rash Medium 03/26/2022 Propoxyphene-Acetaminophen Other (See comments) High 05/15/2010 Gxvumvr-Xjd-Ams Reductase Inhibitors Rash Medium 03/26/2022 Medications No known medications Active Problems No known active problems Social History Tobacco Use Types Packs/Day Years Used Date Smoking Tobacco: Never Assessed Comments Unknown Sex and Gender Information Value Date Recorded Sex Assigned at Not on file 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 FINAL REPORT ACC# Date Time Exam [id number] Apr 02, 2016 10:27:00 [facility] [address] Screening Mamm Bilat Technologist(s): Hailey Almaguer; ; EXAMINATION: Mammogram Technique: Bilateral Full-Field Digital Screening Mammogram was performed. Views obtained: bilateral craniocaudal and bilateral mediolateral oblique. Computer Aided Detection was performed with [employer] version 9.3. Mammogram Findings: The present examination has been compared to prior imaging studies performed at [facility] on 01/16/2015, and at [facility] on 08/06/2013 and 08/04/2012. The breasts are almost entirely fatty. There is no suspicious abnormality in either breast. IMPRESSION: Annual screening mammography is recommended. OVERALL FINAL ASSESSMENT: BI-RADS CATEGORY 1: Negative. Requested By: Dictated By: BUDDY COLLINS M.D. on Apr 02 2016 1:20P This document has been electronically signed by: BUDDY OCLLINS M.D. on Apr 02 2016 1:20P [id number] Procedure Note Provider, MD Evie - 03/01/2017 BUDDY COLLINS M.D. FINAL REPORT ACC# Date Time Exam [id number] Apr 02, 2016 10:27:00 [facility] [address] Screening Mamm Bilat Technologist(s): Hailey Almaguer; ; EXAMINATION: Mammogram Technique: Bilateral Full-Field Digital Screening Mammogram was performed. Views obtained: bilateral craniocaudal and bilateral mediolateral oblique. Computer Aided Detection was performed with zoomsquare 1.3 version 9.3. Mammogram Findings: The present examination has been compared to prior imaging studies performed at [facility] on 01/16/2015, and at [facility] on 08/06/2013 and 08/04/2012. The breasts are almost entirely fatty. There is no suspicious abnormality in either breast. IMPRESSION: Annual screening mammography is recommended. OVERALL FINAL ASSESSMENT: BI-RADS CATEGORY 1: Negative. Requested By: Dictated By: BUDDY COLLINS M.D. on Apr 02 2016 1:20P This document has been electronically signed by: BUDDY COLLINS M.D. on Apr 02 2016 1:20P [id number] Historical Provider MD [facility] MAMMO PROCEDURES Tanvi l Result from Last 3 Months or Most Recently Relevant to Health Maintenance Insurance [facility] [place] [address] Care Teams Plant Maintenance Worker Relationship Specialty Start Date End Date Dipak Plascencia MD PCP - General Internal Medicine 02/17/21
== END 2025-02-06 15:42 | disposition home or self-care (01) ==
LOC: ANHIMG 15:43
PROVIDERS: PCP Internal Medicine; Visit Provider Internal Medicine
DX: Z12.31 Encounter for screening mammogram for malignant neoplasm of breast (principal)
CPT/HCPCS: 77063; 77067

== ENCOUNTER 2025-10-18 12:30 | Outpatient (RCR) | payer MEDICARE, SELFPAY ==
--- NOTE | 2025-08-29 11:56 | PTOPEVAL1 ---
Assessment and note entered by Keli Garcia, PT Evaluation Information Assessment Status Evaluation Subjective Information Pt reports knee pain started when she was pushed into a full squat, states feeling excruciating pain to bilateral knees when she was locked into flexion, took a while to straighten out. She has h/o R TKR (2016), and 2 yrs ago, she felt numbness from R knee down, has subsided, currently still feeling numb from ankle to foot. L knee pain 2/10 with walking, 6-7/10 pain with prolonged sitting in reclined position; tender to touch to the medial side of the L knee. She is concerned about her wobbliness and she has increased fear of falls due to the combination of dizziness, knee pain, unsteadiness on her feet. She feels like her knees are like jelly. Reported Pain Level Pain Score 0: Self Report Assessment PT Clinical Summary Pt is a 70 female who presents to therapy with L knee pain and instability. 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 She demos postural instability, R knee flexion ROM deficits, weakness to bilateral hip stabilizers, balance and gait impairments. She scored 59% on LEFS indicating mild to moderate functional limitation. She will benefit from skilled PT to reduce pain, improve proprioception, coordination and balance, improve flexibility of tight muscles, increase strength and stability of weight bearing joints, core strengthening and gait training to improve functional mobility and reduce risk for falls. Plan of Care Interventions Check Out for Orthotic/Prosthetic,Electrical Stimulation,Gait Training,Hot Pack/Cold Pack, Manual Therapy,Neuro Re-education,Patient/ Caregiver Education,Therapeutic Activities, Therapeutic Exercise,Ultrasound PT Services Indicated Yes Treatment Frequency and 2x/wk x 12 visits Duration These treatments will address the objective and functional deficits as defined above. The patient will be advanced safely and appropriately in order for the patient to progress towards his/her prior level of function. Additional exercises will be introduced and as well as a comprehensive home exercise program upon discharge, if needed, ?to ensure carryover of functional gains achieved in the clinic. This treatment plan has been reviewed and agreement upon by the patient.
--- NOTE | 2025-08-29 11:56 | OPREHPOC ---
Outpatient Therapy Plan of Care This is a Multidisciplinary Plan of Care that may contain components documented by all disciplines (PT, OT, and ST.) PT Problem 1 PT Problem #1 Knowledge Deficit PT Goal 1 Goal / Goal Update Pt will demo good understanding of diagnosis, prognosis and HEPs (Dr. Lira protocol) Target Visit 10 PT Problem 2 PT Problem #2 Impaired Flexibility PT Goal 1 Goal / Goal Update 1. Pt will demo prone knee bend to >90deg bilaterally. 2. Pt will demo SRINIVASA bilaterally without increased discomfort. Target Visit 10 PT Problem 3 PT Problem #3 Impaired Gait PT Goal 1 Goal / Goal Update 1. Pt will demo SLS for 10 seconds or more with improved stability and without knee pain. 2. Pt will demo normalized gait pattern with improved hip and knee flexion during swing phase, equal weight shift with BLEs. Target Visit 12
--- NOTE | 2025-09-11 09:18 | PCPTNOTE ---
Pt canceled appt today but did not leave reason.
--- NOTE | 2025-10-18 14:08 | PTOPDC ---
Assessment and note entered by Keli Garcia, PT Discharge Information Assessment Status Discharge Subjective Information Pt reports 95% better today, feels no pain on the knee at the moment, however L foot continue to feel some tingling sensation. Continue to feel discomfort to knee with prolonged sitting but not as bad. Reported Pain Level Pain Score 0: Self Report Assessment PT Clinical Summary The patient progressed well with therapy, demos improved knee strength, mobility and functional tolerance. At DC, the patient scored 68% on the Lower Extremity Functional Scale (LEFs) indicating good to normal LE function. She is indep and demos improved gait mechanics without any AD. She no longer requires skilled PT services at this time. Discharged with instruction to continue with HEPs to maintain gains. Plan of Care PT Services Indicated No
== END 2025-10-22 16:20 | disposition home or self-care (01) ==
LOC: ANHPT 12:30
PROVIDERS: PCP Internal Medicine; Visit Provider Family Medicine
DX: M25.562 Pain in left knee (principal)
CPT/HCPCS: 97014; 97110; 97112; 97116; 97140; 97161; 97530; G0283